=== PATIENT | female | born 1950 | race Caucasian/White ===

== ENCOUNTER → 2016-08-07 | Outpatient (CLI) | payer BC ==
[~2016-08-07] MED LIST: CLX20 PO; MULT-506 PO; PRAV20TA PO; b complex PO
[2016-08-07 13:13] LABS: ALKALINE PHOSPHATASE 51 U/L (45-117); ALT/SGPT 37 U/L (12-78); AST/SGOT 22 U/L (15-37); BLOOD UREA NITROGEN 19 mg/dl (7-18); BUN/CREATININE RATIO 25.8 (10-20); CALCIUM 8.5 mg/dl (8.5-10.1); CARBON DIOXIDE 26 mmol/L (21-32); CHLORIDE 99 mmol/L (98-107); CREATININE 0.75 mg/dl (0.60-1.20); GLUCOSE 87 mg/dl (70-99); HDL CHOLESTEROL 54 mg/dl; POTASSIUM 3.4 mmol/L (3.5-5.1); SODIUM 135 mmol/L (136-145)
[2016-08-07 13:24] LABS: ALB/GLOB RATIO 1.4 (0.9-2); CHOLESTEROL 137 mg/dl (0-200); CHOLESTEROL/HDL RATIO 2.5; LDL CHOLESTEROL CALCULATED 47 mg/dl; TRIGLYCERIDES 179 mg/dl (0-150); VERY LOW DENSITY LIPOPROT CALC 36 mg/dl
== END | disposition home or self-care (01) ==
LOC: C.LABPVFM 10:10
PROVIDERS: ATTEND Family Medicine
DX: E78.5 Hyperlipidemia, unspecified (principal); M81.0 Age-related osteoporosis without current pathological fracture; E87.6 Hypokalemia; F32.9 Major depressive disorder, single episode, unspecified

== ENCOUNTER → 2016-08-11 | Outpatient (CLI) | payer BC ==
--- NOTE | 2016-08-11 10:07 | DIAGNOSTIC IMAGING REPORT ---
RIGHT WRIST 4 VIEWS CLINICAL HISTORY: Right wrist pain. Fall in March. FINDINGS: 4 views of the right wrist are obtained. No prior studies are available for comparison at the time of dictation. The skeletal structures are osteopenic. There is a a thick band of sclerosis consistent with a healing impacted fracture of the distal radial metaphysis with evidence of intra-articular extension. No acute fracture is seen. Degenerative narrowing is noted at the radiocarpal articulation. Mild overlying soft tissue edema is observed. IMPRESSION: 1. There is a thick band of sclerosis consistent with a healing impacted fracture of the distal radial metaphysis with evidence of intraarticular extension. 2. Soft tissue edema is present around the wrist. No acute fracture is identified. Electronically signed by: Gerardo Hager M.D. 08/11/2016 10:05 AM Dictated Date/Time: 08/11/2016 10:03 AM
== END | disposition home or self-care (01) ==
LOC: C.RADPV 09:42
PROVIDERS: ATTEND Family Medicine
DX: M25.531 Pain in right wrist (principal); R93.7 Abnormal findings on diagnostic imaging of other parts of musculoskeletal system; M79.89 Other specified soft tissue disorders

== ENCOUNTER → 2017-02-19 | Outpatient (CLI) | payer BC ==
[2017-02-19 12:34] LABS: BLOOD UREA NITROGEN 19 mg/dl (7-18); BUN/CREATININE RATIO 27.9 (10-20); CALCIUM 8.7 mg/dl (8.5-10.1); CARBON DIOXIDE 30 mmol/L (21-32); CHLORIDE 97 mmol/L (98-107); CREATININE 0.68 mg/dl (0.60-1.20); GLUCOSE 88 mg/dl (70-99); POTASSIUM 3.3 mmol/L (3.5-5.1); SODIUM 134 mmol/L (136-145)
[2017-02-19 12:42] LABS: ALB/GLOB RATIO 1.2 (0.9-2); ALKALINE PHOSPHATASE 40 U/L (45-117); ALT/SGPT 33 U/L (12-78); AST/SGOT 17 U/L (15-37); CHOLESTEROL 119 mg/dl (0-200); CHOLESTEROL/HDL RATIO 2.8; HDL CHOLESTEROL 43 mg/dl; LDL CHOLESTEROL CALCULATED 40 mg/dl; TRIGLYCERIDES 180 mg/dl (0-150); VERY LOW DENSITY LIPOPROT CALC 36 mg/dl
== END | disposition home or self-care (01) ==
LOC: C.LABPVFM 09:29
PROVIDERS: ATTEND Family Medicine
DX: E78.5 Hyperlipidemia, unspecified (principal); M81.0 Age-related osteoporosis without current pathological fracture; E87.6 Hypokalemia; F32.9 Major depressive disorder, single episode, unspecified

== ENCOUNTER → 2017-08-14 | Outpatient (CLI) | payer OTHER ==
--- NOTE | 2017-08-15 15:39 | MAMMOGRAPHY REPORT ---
BILATERAL DIGITAL SCREENING MAMMOGRAM TOMOSYNTHESIS WITH CAD: 08/14/2017 CLINICAL HISTORY: Routine screening. Patient has no complaints. TECHNIQUE: Breast tomosynthesis in addition to standard 2D mammography was performed. Current study was also evaluated with a Computer Aided Detection (CAD) system. COMPARISON: Comparison is made to exams dated: 03/15/2015 mammogram, 02/10/2015 mammogram, 10/28/2010 ma mmogram - [facility], 01/07/2009, 01/28/2008, and 01/28/2008. BREAST COMPOSITION: The tissue of both breasts is extremely dense, which lowers the sensitivity of m ammography. FINDINGS: There are benign rim calcifications scattered in the breasts. No suspicious mass, architec tural distortion or cluster of microcalcifications is seen. IMPRESSION: ACR BI-RADS CATEGORY 1: NEGATIVE There is no mammographic evidence of malignancy. A 1 year screening mammogram is recommended. The pa tient will receive written notification of the results. Approximately 10% of breast cancers are not detected with mammography. A negative mammographic report should not delay biopsy if a clinically suggestive mass is present. Kendal Herring M.D. ay/:08/14/2017 16:12:40 Wheel Alignment Technician: Jessica CASTELLANO(Isabel)(José), [facility] letter sent: Normal 1/2 BI-RADS Code: ACR BI-RADS Category 1: Negative
== END | disposition home or self-care (01) ==
LOC: C.MAMM 08:08
PROVIDERS: ATTEND Family Medicine
DX: Z12.31 Encounter for screening mammogram for malignant neoplasm of breast (principal)

== ENCOUNTER → 2017-08-28 | Outpatient (CLI) | payer BC ==
[2017-08-28 12:30] LABS: ALBUMIN 3.5 gm/dl (3.4-5.0); ALT/SGPT 38 U/L (12-78); AST/SGOT 18 U/L (15-37); BLOOD UREA NITROGEN 21 mg/dl (7-18); CALCIUM 8.6 mg/dl (8.5-10.1); CARBON DIOXIDE 25 mmol/L (21-32); CREATININE 0.62 mg/dl (0.60-1.20); GLUCOSE 83 mg/dl (70-99); POTASSIUM 2.9 mmol/L (3.5-5.1); SODIUM 133 mmol/L (136-145)
[2017-08-28 12:42] LABS: ALKALINE PHOSPHATASE 62 U/L (45-117); TOTAL PROTEIN 6.9 gm/dl (6.4-8.2)
== END | disposition home or self-care (01) ==
LOC: C.LAB1850 10:08
PROVIDERS: ATTEND Family Medicine
DX: E78.5 Hyperlipidemia, unspecified (principal); E87.6 Hypokalemia; F50.00 Anorexia nervosa, unspecified; F32.9 Major depressive disorder, single episode, unspecified

== ENCOUNTER → 2017-10-10 | Outpatient (CLI) | payer BC | END | disposition home or self-care (01) | LOC: C.LAB1850 12:01 | PROVIDERS: ATTEND Family Medicine | DX: E87.6 Hypokalemia (principal) ==

== ENCOUNTER → 2018-03-11 | Outpatient (CLI) | payer BC ==
[2018-03-11 10:36] LABS: BASO % 0.6 %; BASO ABS # 0.05 K/uL (0-0.2); EOS % 1.7 %; EOS ABS # 0.15 K/uL (0-0.5); HEMATOCRIT 45.2 % (37-47); HEMOGLOBIN 14.4 g/dL (12.0-16.0); IG# 0.05 K/uL (0.00-0.02); LYMPH % 26.8 %; LYMPH ABS # 2.39 K/uL (1.2-3.4); MEAN CELL VOLUME 83.5 fL (80-100); MEAN CORPUSCULAR HEMOGLOBIN 26.6 pg (25-34); MEAN CORPUSCULAR HGB CONC 31.9 g/dl (32-36); MEAN PLATELET VOLUME 10.2 fL (7.4-10.4); MONO % 12.9 %; MONO ABS # 1.15 K/uL (0.11-0.59); NEUT % 57.4 %; NEUT ABS # 5.12 K/uL (1.4-6.5); PLATELET COUNT 382 K/uL (130-400); RED CELL DISTRIBUTION WIDTH CV 20.6 % (11.5-14.5); WHITE BLOOD COUNT 8.91 K/uL (4.8-10.8)
[2018-03-11 10:51] LABS: ALBUMIN 3.7 gm/dl (3.4-5.0); ALKALINE PHOSPHATASE 61 U/L (45-117); ALT/SGPT 43 U/L (12-78); AST/SGOT 20 U/L (15-37); BLOOD UREA NITROGEN 32 mg/dl (7-18); CARBON DIOXIDE 30 mmol/L (21-32); CHOLESTEROL 130 mg/dl (0-200); CREATININE 0.72 mg/dl (0.60-1.20); GLUCOSE 99 mg/dl (70-99); LDL CHOLESTEROL CALCULATED 44 mg/dl; POTASSIUM 2.8 mmol/L (3.5-5.1); SODIUM 131 mmol/L (136-145); TOTAL PROTEIN 7.2 gm/dl (6.4-8.2)
== END | disposition home or self-care (01) ==
LOC: C.LAB1850 09:23
PROVIDERS: ATTEND Family Medicine
DX: E78.5 Hyperlipidemia, unspecified (principal); M81.0 Age-related osteoporosis without current pathological fracture; F32.9 Major depressive disorder, single episode, unspecified; F50.00 Anorexia nervosa, unspecified

== ENCOUNTER 2022-12-21 14:02 | Observation (INO) ==
--- NOTE | 2022-12-21 14:27 | ED Triage Note ---
Date of Service December 21, 2022 History of Present Illness This patient was briefly evaluated while in triage. An abbreviated physical exam was performed. This patient is a 72-year-old Female who presents to the ED for evaluation of left arm weakness and numbness. Reports symptoms started 3 days ago. Denies v isual changes, slurred speech, confusion. She also notes being unable to void as well as diarrhea. Denies fever/chills, n/v, chest pain, SOB, abdominal pain. Physical Exam Constitutional: alert and oriented x3. no acute distress. HEENT: normocephalic, atraumatic. normal conjunctiva. Respiratory: lungs are clear to auscultation without wheezes, rhonchi, or rales bilaterally. equal chest rise. normal respiratory effort, no accessory muscle use. Cardiovascular: normal heart sounds without murmur. regular rate and rhythm. GI: abdomen is soft, nontender. MSK: moves all 4 extremities spontaneously Peripheral vascular: extremities warm and well perfused Neuro: Speech clear, tongue midline, without facial droop. Psych:appropriate mood and affect. Initial orders for labs and / or imaging were placed and patient was placed in the waiting area until a bed is available. Please see further documentation for the full ED course.
[2022-12-21 15:47] LABS: Basophils # (auto) 0.02 K/uL (0-0.2); Basophils % (auto) 0.2 %; Eosinophils # (auto) 0.04 K/uL (0-0.50); Eosinophils % (auto) 0.5 %; Hemoglobin 8.2 g/dl (12.0-16.0); Immature Granulocytes # (auto) 0.04 K/uL (0.01-0.20); Immature Granulocytes % (auto) 0.5 %; Lymphocytes # (auto) 1.14 K/uL (1.2-3.4); Lymphocytes % (auto) 13.2 %; Mean Corpuscular Hemoglobin 27.2 pg (25.0-34.0); Mean Corpuscular Hgb Conc 31.5 g/dL (32.0-36.0); Mean Corpuscular Volume 86.1 fL (80.0-100.0); Mean Platelet Volume 10.9 fL (9.4-12.4); Monocytes # (auto) 0.77 K/uL (0.11-0.59); Monocytes % (auto) 8.9 %; Neutrophils # (auto) 6.61 K/uL (1.40-6.50); Neutrophils % (auto) 76.7 %; Nucleated RBC # (auto) 0.03 K/uL (0-0.12); Nucleated RBC % (auto) 0.3 %; Platelet Count 406 K/uL (130-400); RDW Coefficient of Variation 29.3 % (11.5-14.5); RDW Standard Deviation 90.5 fL (36.4-46.3); Red Blood Count 3.02 M/uL (4.20-5.40); White Blood Count 8.62 K/ul (4.8-10.8)
--- NOTE | 2022-12-21 15:54 | CT Scan Report ---
CT SCAN OF THE BRAIN WITHOUT IV CONTRAST CLINICAL HISTORY: Right arm weakness. COMPARISON STUDY: CT of the brain dated 09/06/2011. TECHNIQUE: Unenhanced axial CT scan of the brain is performed from the vertex to the skull base. A do se lowering technique was utilized adhering to the principles of ALARA. CT DOSE: 547.75 mGy.cm FINDINGS: Brain parenchyma: There is age-related involutional change noting mild subcortical and periventricula r microangiopathic disease. There is no hemorrhage, mass effect, or evidence of acute territorial isc hemia by CT criteria. Lim-white matter differentiation is preserved. No extra-axial fluid collection is seen. Ventricles, sulci, cisterns: Prominent secondary to involutional change. Intracranial vasculature: There is mild atherosclerotic calcification of the cavernous carotid arteri es. Calvarium: Unremarkable. Sinuses and mastoids: There is opacification of the visualized right maxillary antrum. Trace fluid is seen in the sphenoid sinuses. There is near complete opacification of the right frontal sinus. The m astoid air cells are well pneumatized. Orbits: The bony orbits are grossly intact. IMPRESSION: There is no hemorrhage, mass effect, or evidence of acute territorial ischemia by CT jean marie sharma. ACT 112: Negative or not required by law. Electronically signed by: Gerardo Hager M.D. 12/21/2022 3:53 PM
[2022-12-21 15:56] LABS: Alanine Aminotransferase 16 U/L (7-52); Albumin Globulin Ratio 1.3 (0.9-2); Albumin Level 3.7 gm/dl (3.4-5.0); Alkaline Phosphatase 47 U/L (34-104); Anion Gap 10 (3-11); Aspartate Aminotransferase 25 U/L (13-39); BUN Creatinine Ratio 56.9 (10-20); Bilirubin,Total 0.2 mg/dl (0.2-1.0); Blood Urea Nitrogen 33 mg/dl (6-23); Carbon Dioxide 27 mmol/L (21-32); Chloride 95 mmol/L (98-107); Est GFR (African American) 108.2 ml/min; Est GFR (Non-African American) 93.4 ml/min; Globulin 2.9 gm/dl (2.5-4.0); Glucose 79 mg/dl (70-99(Fasting)); Potassium 2.7 mmol/L (3.5-5.1); Sodium 132 mmol/L (136-145); Total Protein 6.6 gm/dl (6.0-8.3)
[2022-12-21 16:01] LABS: Troponin I High Sensitivity 17.6 pg/ml (0-14)
--- NOTE | 2022-12-21 16:14 | Emergency Department Note ---
Impression & Plan Generalized weakness, Hypokalemia, Weakness of left upper extremity, Overflow diarrhea, Chronic malnutrition ED Provider Note NAME: NICOLE CHOWDARY AGE: 72 SEX: F : 1950 ARRIVES VIA: Walk-In INFORMANT: Patient, ED PROVIDER(S): Ricardo Ceja MD CHIEF COMPLAINT: Weakness MEDICAL DECISION MAKING: Patient presents due to concern for worsening weakness leg swelling decreased urine output as well as concern for left upper extremity weakness. IV was established and blood work was obtained. Patient did have a CT of the head performed along with Patient has a normal white count with anemia hemoglobin of 8 which is worse compared to prior in January of last year at that time it was 11. The patient's kidney function does show an elevated BUN to creatinine ratio. The patient does not complain of any bright red blood per r ectum or dark tarry stools. Patient's creatinine is normal. Sodium 132 with potassium of 2.7. Troponin is slightly elevated 17.6 but the patient denies any chest pains or shortness of breath and does complain of generalized weakness. Given the patient's multiple electrolyte abnormalities and the fact that the patient's significant malnutrition do believe the patient would benefit from inpatient treatment. The patient was also ordered a CT of the abdomen pelvis given the patient's decreased urine output. CT of the abdomen pelvis shows stool ball with rectal wall thickening. Prior /Outside records reviewed: I did review a primary care visit from Dr. Handy patient was seen for osteopor osis and hyperlipidemia at that time. Patient has a history of thrombocytopenia GERD scoliosis and osteoporosis Differential diagnosis: Infection, dehydration, metabolic abnormality, hypo/hyperglycemia, electrolyte disturbance, anemia, hypoxia, cardiac sources, intracerebral event, toxicologic, neurologic, as well as other pathologies. Diagnostics, as interpreted by me: ECG: Normal sinus rhythm, rate of 73, normal intervals normal axis no ST elevations, T wave versions anteriorly. Cardiac monitoring: An order was placed for continuous cardiac monitoring. The monitor shows a rate of 72 with sinus rhythm. Patient was placed on pulse oximetry Medical decision rules: none Imaging studies: See below I reviewed the patient's chest x-ray which shows no obvious pneumonia or pneumothorax. HPI: Patient presents due to concern for generalized weakness as well as associated leg swelling and decreased urine output. The patient states that she was able to pee a little bit this morning but not peed for what she thought was about 3 days . The patient states that she has had some progressively worsening weakness over the last several weeks and was concerned several days ago that she had decreased use of her left upper extremity. No prior history of stroke or mini stroke per patient. Patient denies any chest pains or shortness of breath. Patient has had decreased appetite. The patient has noticed that she has had some swelling in the bilateral lower extremities. Patient is also had associated diarrhea that has been constant every time that she seems to eat or drink anything it seems to "run right through me." Patient denies any known sick contacts or recent travel no recent antibiotic use and the patient denies any untreated stream or well water. PAST MEDICAL HISTORY: See Below PAST SURGICAL HISTORY: See Below SOCIAL HISTORY: See Below HOME MEDICATIONS: See Below ALLERGIES: See Below VITALS: See Below PHYSICAL EXAMINATION: GENERAL: NAD, wearing a mask, non-toxic. EYE EXAM: Normal conjunctiva. PERRL, no anisocoria and EOM's grossly intact w/o pain. NECK: Supple, no nuchal rigidity, no adenopathy, non-tender. No signs of meningismus. FROM of the neck with good chin to chest and neck extension. No stridor. LUNGS: Clear to auscultation. Normal chest wall mechanics. HEART: NSR, no MRG. ABDOMEN: Abdomen soft, non-tender, no masses, no rebound or guarding. BACK: No CVA TTP. SKIN: No rashes and no bruising. UPPER EXTREMITIES: Upper extremities are grossly normal. LOWER EXTREMITIES: Grossly normal, no edema. NEURO EXAM: A&O x3, cranial nerves II-XII grossly intact, normal speech, moves all 4 extremities. 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 Left forearm fracture Osteoporosis Sacroiliitis Scoliosis of thoracolumbar region due to degenerative disease of spine in adult Surgical History S/P cervical disc replacement Family History Mother Myocardial infarction Father COPD (chronic obstructive pulmonary disease) Other Heart disease Denies family history of Ovarian cancer Prostate cancer Kidney disease Breast cancer Colorectal cancer Social History Smoking Status: Current every day smoker Tobacco Type: Cigarettes Age Started Using Tobacco: 29; Age Quit Using Tobacco: 52; packs per day: 2; Second Hand Exposure: Yes (her ex- used to smoke around her ); Do You Dip or Chew Tobacco: No; Hx Alcohol Use: No Hx Substance Use: No Preferred Language: Taiwanese Communication Ability: Effective Visual Impairment: No Limitations Hearing Ability: Normal Rn Emergency Room Required: No Beliefs That Will Affect Care: None marital status: Current Living Situation: Alone current occupational status: retired current occupation: used to work as a cook for [employer] Other Information That Helps Us Care for You: No Feels Safe at Home: Yes Safety Concerns: Feels Safe At This Time Childhood Exposure to Second-Hand Smoke: Yes Diet: regular Dental Care, Regularly: Yes Physical Activity Frequency: 3-4 Times per Week Seatbelt Use: always Sunscreen Use: No Assistive Devices: None Allergies Allergies Allergy/AdvReac Type Severity Reaction Status Date / Time No Known Allergies Allergy Verified 12/21/22 18:08 Home Meds Home Medications Medication Instructions Recorded Confirmed dorzolamide 22.3 mg-timolol 6.8 1 drops ophthalmic (eye) BID 06/06/19 12/21/22 mg/mL eye drops latanoprost 0.005 % eye drops 1 drops ophthalmic (eye) QPM 06/06/19 12/21/22 food supplemt, lactose-reduced 3 ea PO TID 12/21/22 12/21/22 Previous Rx's Medication Instructions Recorded atorvastatin 20 mg tablet 20 mg PO DAILY #90 tabs 01/31/22 potassium bicarbonate-citric acid 25 meq PO BID #180 ea 03/20/22 25 mEq effervescent tablet (Effer-K) potassium, sodium phosphates 280 1 packet PO DAILY #100 ea 03/20/22 mg-160 mg-250 mg oral powder packet (Phos-NaK) omeprazole 20 mg capsule,delayed 20 mg PO DAILY #90 caps 05/22/22 release citalopram 40 mg tablet 40 mg PO DAILY #90 tabs 08/03/22 Results & Data (ED) Vital Signs Vital Signs - 24 hr 12/21/22 14:23 12/21/22 17:43 12/21/22 17:41 Temperature 36.6 C Temperature Source Temporal Artery Scan Pulse Rate 79 80 79 Pulse Rate from SpO2 Sensor 79 Respiratory Rate 16 15 Respiratory Depth Normal Blood Pressure 144/88 H Blood Pressure Mean 106 Pulse Oximetry 97 90 Oxygen Delivery Method Room Air Sepsis Recent Fever Within 48 Hours No Sepsis New/Unexplained Change in Mental Status No Sepsis Action Taken by Nursing No Action Required 12/21/22 17:50 12/21/22 18:00 12/21/22 18:00 Temperature Temperature Source Pulse Rate 78 76 Pulse Rate from SpO2 Sensor Respiratory Rate 19 18 Respiratory Depth Blood Pressure 98/63 L Blood Pressure Mean 66 Pulse Oximetry Oxygen Delivery Method Sepsis Recent Fever Within 48 Hours Sepsis New/Unexplained Change in Mental Status Sepsis Action Taken by Nursing 12/21/22 18:10 12/21/22 18:20 12/21/22 18:30 Temperature Temperature Source Pulse Rate 79 85 77 Pulse Rate from SpO2 Sensor Respiratory Rate 19 17 19 Respiratory Depth Blood Pressure Blood Pressure Mean Pulse Oximetry Oxygen Delivery Method Sepsis Recent Fever Within 48 Hours Sepsis New/Unexplained Change in Mental Status Sepsis Action Taken by Nursing 12/21/22 18:40 Temperature Temperature Source Pulse Rate 100 H Pulse Rate from SpO2 Sensor Respiratory Rate 25 H Respiratory Depth Blood Pressure Blood Pressure Mean Pulse Oximetry Oxygen Delivery Method Sepsis Recent Fever Within 48 Hours Sepsis New/Unexplained Change in Mental Status Sepsis Action Taken by Prison Medications Current Medication List: was personally reviewed by me Laboratory Data Attestation: I reviewed the patient's lab results. 12/21/22 15:00 12/21/22 15:00 Lab Results 12/21/22 12/21/22 12/21/22 Range/Units 15:00 15:00 15:00 WBC 8.62 (4.8-10.8) K/ul RBC 3.02 L (4.20-5.40) M/uL Hgb 8.2 L (12.0-16.0) g/dl Hct 26.0 L (37.0-47.0) % MCV 86.1 (80.0-100.0) fL MCH 27.2 (25.0-34.0) pg MCHC 31.5 L (32.0-36.0) g/dL RDW Std Deviation 90.5 H (36.4-46.3) fL RDW Coeff of Abdirahman 29.3 H (11.5-14.5) % Plt Count 406 H (130-400) K/uL MPV 10.9 (9.4-12.4) fL Immature Gran % (Auto) 0.5 % Neut % (Auto) 76.7 % Lymph % (Auto) 13.2 % Clinton % (Auto) 8.9 % Eos % (Auto) 0.5 % Baso % (Auto) 0.2 % Reticulocyte % (Auto) (0.5-2.0) % Neut # (Auto) 6.61 H (1.40-6.50) K/uL Lymph # (Auto) 1.14 L (1.2-3.4) K/uL Clinton # (Auto) 0.77 H (0.11-0.59) K/uL Eos # (Auto) 0.04 (0-0.50) K/uL Baso # (Auto) 0.02 (0-0.2) K/uL Reticulocyte # (0.02-0.10) 10^6/uL Immature Gran # (Auto) 0.04 (0.01-0.20) K/uL Absolute Nucleated RBC 0.03 (0-0.12) K/uL Nucleated RBC % (auto) 0.3 % Polychromasia 1+ Anisocytosis Present Stomatocytes 1+ Sodium 132 L (136-145) mmol/L Potassium 2.7 L (3.5-5.1) mmol/L Chloride 95 L (98-107) mmol/L Carbon Dioxide 27 (21-32) mmol/L Anion Gap 10 (3-11) BUN 33 H (6-23) mg/dl Creatinine 0.58 L (0.6-1.2) mg/dl Est Cr Clr Drug Dosing Not Reportable Est GFR ( Amer) 108.2 ml/min Est GFR (Non-Af Amer) 93.4 ml/min BUN/Creatinine Ratio 56.9 H (10-20) Glucose 79 (70-99(Fasting)) mg/dl Osmolality 279 L (280-300) mOsm/kg Calcium 9.0 (8.6-10.3) mg/dl Phosphorus (2.5-4.9) mg/dl Magnesium (1.7-2.4) mg/dl Iron (35-150) mcg/dl TIBC (250-450) mcg/dl Unsaturated IBC (155-355) mcg/dl Transferrin % Sat (15-50) % Ferritin (8-388) ng/ml Total Bilirubin 0.2 (0.2-1.0) mg/dl AST 25 (13-39) U/L ALT 16 (7-52) U/L Alkaline Phosphatase 47 (34-104) U/L Lactate Dehydrogenase (86-244) U/L Total Creatine Kinase (26-192) U/L Troponin I High Sens 17.6 H (0-14) pg/ml B-Natriuretic Peptide (0-100) pg/ml Total Protein 6.6 (6.0-8.3) gm/dl Albumin 3.7 (3.4-5.0) gm/dl Globulin 2.9 (2.5-4.0) gm/dl Albumin/Globulin Ratio 1.3 (0.9-2) Vitamin B12 (180-914) pg/ml Folate (>5.38) ng/ml TSH (0.300-4.500) uIu/ml SARS-CoV-2, RNA, NAAT (NEGATIVE) Blood Type Antibody Screen 12/21/22 12/21/22 12/21/22 Range/Units 15:00 15:00 15:00 WBC (4.8-10.8) K/ul RBC (4.20-5.40) M/uL Hgb (12.0-16.0) g/dl Hct (37.0-47.0) % MCV (80.0-100.0) fL MCH (25.0-34.0) pg MCHC (32.0-36.0) g/dL RDW Std Deviation (36.4-46.3) fL RDW Coeff of Abdirahman (11.5-14.5) % Plt Count (130-400) K/uL MPV (9.4-12.4) fL Immature Gran % (Auto) % Neut % (Auto) % Lymph % (Auto) % Clinton % (Auto) % Eos % (Auto) % Baso % (Auto) % Reticulocyte % (Auto) 7.5 H (0.5-2.0) % Neut # (Auto) (1.40-6.50) K/uL Lymph # (Auto) (1.2-3.4) K/uL Clinton # (Auto) (0.11-0.59) K/uL Eos # (Auto) (0-0.50) K/uL Baso # (Auto) (0-0.2) K/uL Reticulocyte # 0.23 H (0.02-0.10) 10^6/uL Immature Gran # (Auto) (0.01-0.20) K/uL Absolute Nucleated RBC (0-0.12) K/uL Nucleated RBC % (auto) % Polychromasia Anisocytosis Stomatocytes Sodium (136-145) mmol/L Potassium (3.5-5.1) mmol/L Chloride (98-107) mmol/L Carbon Dioxide (21-32) mmol/L Anion Gap (3-11) BUN (6-23) mg/dl Creatinine (0.6-1.2) mg/dl Est Cr Clr Drug Dosing Est GFR ( Amer) ml/min Est GFR (Non-Af Amer) ml/min BUN/Creatinine Ratio (10-20) Glucose (70-99(Fasting)) mg/dl Osmolality (280-300) mOsm/kg Calcium (8.6-10.3) mg/dl Phosphorus (2.5-4.9) mg/dl Magnesium (1.7-2.4) mg/dl Iron (35-150) mcg/dl TIBC (250-450) mcg/dl Unsaturated IBC (155-355) mcg/dl Transferrin % Sat (15-50) % Ferritin (8-388) ng/ml Total Bilirubin (0.2-1.0) mg/dl AST (13-39) U/L ALT (7-52) U/L Alkaline Phosphatase (34-104) U/L Lactate Dehydrogenase (86-244) U/L Total Creatine Kinase (26-192) U/L Troponin I High Sens (0-14) pg/ml B-Natriuretic Peptide (0-100) pg/ml Total Protein (6.0-8.3) gm/dl Albumin (3.4-5.0) gm/dl Globulin (2.5-4.0) gm/dl Albumin/Globulin Ratio (0.9-2) Vitamin B12 > 1500 H (180-914) pg/ml Folate > 22.30 (>5.38) ng/ml TSH 1.844 (0.300-4.500) uIu/ml SARS-CoV-2, RNA, NAAT (NEGATIVE) Blood Type Antibody Screen 12/21/22 12/21/22 12/21/22 Range/Units 16:38 17:20 17:22 WBC (4.8-10.8) K/ul RBC (4.20-5.40) M/uL Hgb (12.0-16.0) g/dl Hct (37.0-47.0) % MCV (80.0-100.0) fL MCH (25.0-34.0) pg MCHC (32.0-36.0) g/dL RDW Std Deviation (36.4-46.3) fL RDW Coeff of Abdirahman (11.5-14.5) % Plt Count (130-400) K/uL MPV (9.4-12.4) fL Immature Gran % (Auto) % Neut % (Auto) % Lymph % (Auto) % Clinton % (Auto) % Eos % (Auto) % Baso % (Auto) % Reticulocyte % (Auto) (0.5-2.0) % Neut # (Auto) (1.40-6.50) K/uL Lymph # (Auto) (1.2-3.4) K/uL Clinton # (Auto) (0.11-0.59) K/uL Eos # (Auto) (0-0.50) K/uL Baso # (Auto) (0-0.2) K/uL Reticulocyte # (0.02-0.10) 10^6/uL Immature Gran # (Auto) (0.01-0.20) K/uL Absolute Nucleated RBC (0-0.12) K/uL Nucleated RBC % (auto) % Polychromasia Anisocytosis Stomatocytes Sodium (136-145) mmol/L Potassium (3.5-5.1) mmol/L Chloride (98-107) mmol/L Carbon Dioxide (21-32) mmol/L Anion Gap (3-11) BUN (6-23) mg/dl Creatinine (0.6-1.2) mg/dl Est Cr Clr Drug Dosing Est GFR ( Amer) ml/min Est GFR (Non-Af Amer) ml/min BUN/Creatinine Ratio (10-20) Glucose (70-99(Fasting)) mg/dl Osmolality (280-300) mOsm/kg Calcium (8.6-10.3) mg/dl Phosphorus 3.1 (2.5-4.9) mg/dl Magnesium 1.9 (1.7-2.4) mg/dl Iron 18 L (35-150) mcg/dl TIBC 375 (250-450) mcg/dl Unsaturated IBC 357 H (155-355) mcg/dl Transferrin % Sat 5 L (15-50) % Ferritin 9.6 (8-388) ng/ml Total Bilirubin (0.2-1.0) mg/dl AST (13-39) U/L ALT (7-52) U/L Alkaline Phosphatase (34-104) U/L Lactate Dehydrogenase (86-244) U/L Total Creatine Kinase 114 (26-192) U/L Troponin I High Sens (0-14) pg/ml B-Natriuretic Peptide 323 H (0-100) pg/ml Total Protein (6.0-8.3) gm/dl Albumin (3.4-5.0) gm/dl Globulin (2.5-4.0) gm/dl Albumin/Globulin Ratio (0.9-2) Vitamin B12 (180-914) pg/ml Folate (>5.38) ng/ml TSH (0.300-4.500) uIu/ml SARS-CoV-2, RNA, NAAT NEGATIVE (NEGATIVE) Blood Type Antibody Screen 12/21/22 12/21/22 Range/Units 17:22 18:01 WBC (4.8-10.8) K/ul RBC (4.20-5.40) M/uL Hgb (12.0-16.0) g/dl Hct (37.0-47.0) % MCV (80.0-100.0) fL MCH (25.0-34.0) pg MCHC (32.0-36.0) g/dL RDW Std Deviation (36.4-46.3) fL RDW Coeff of Abdirahman (11.5-14.5) % Plt Count (130-400) K/uL MPV (9.4-12.4) fL Immature Gran % (Auto) % Neut % (Auto) % Lymph % (Auto) % Clinton % (Auto) % Eos % (Auto) % Baso % (Auto) % Reticulocyte % (Auto) (0.5-2.0) % Neut # (Auto) (1.40-6.50) K/uL Lymph # (Auto) (1.2-3.4) K/uL Clinton # (Auto) (0.11-0.59) K/uL Eos # (Auto) (0-0.50) K/uL Baso # (Auto) (0-0.2) K/uL Reticulocyte # (0.02-0.10) 10^6/uL Immature Gran # (Auto) (0.01-0.20) K/uL Absolute Nucleated RBC (0-0.12) K/uL Nucleated RBC % (auto) % Polychromasia Anisocytosis Stomatocytes Sodium (136-145) mmol/L Potassium (3.5-5.1) mmol/L Chloride (98-107) mmol/L Carbon Dioxide (21-32) mmol/L Anion Gap (3-11) BUN (6-23) mg/dl Creatinine (0.6-1.2) mg/dl Est Cr Clr Drug Dosing Est GFR ( Amer) ml/min Est GFR (Non-Af Amer) ml/min BUN/Creatinine Ratio (10-20) Glucose (70-99(Fasting)) mg/dl Osmolality (280-300) mOsm/kg Calcium (8.6-10.3) mg/dl Phosphorus (2.5-4.9) mg/dl Magnesium (1.7-2.4) mg/dl Iron (35-150) mcg/dl TIBC (250-450) mcg/dl Unsaturated IBC (155-355) mcg/dl Transferrin % Sat (15-50) % Ferritin (8-388) ng/ml Total Bilirubin (0.2-1.0) mg/dl AST (13-39) U/L ALT (7-52) U/L Alkaline Phosphatase (34-104) U/L Lactate Dehydrogenase 193 (86-244) U/L Total Creatine Kinase (26-192) U/L Troponin I High Sens (0-14) pg/ml B-Natriuretic Peptide (0-100) pg/ml Total Protein (6.0-8.3) gm/dl Albumin (3.4-5.0) gm/dl Globulin (2.5-4.0) gm/dl Albumin/Globulin Ratio (0.9-2) Vitamin B12 (180-914) pg/ml Folate (>5.38) ng/ml TSH (0.300-4.500) uIu/ml SARS-CoV-2, RNA, NAAT (NEGATIVE) Blood Type AB Positive Antibody Screen NEGATIVE Administered Medications Dorzolamide/Timolol (Dorzolamide/Timolol 22.3/6.8mg/Ml 10 Ml Btl) 1 drops OP BID [facility] Stop: 01/20/23 21:33 Last Admin: 12/21/22 23:45 Dose: 1 drops Documented By: KARL Potassium Chloride 40 meq/ (Dextrose/Sodium Chloride) 1,020 mls @ 80 mls/hr IV .[id number] [facility] Stop: 12/22/22 23:29 Last Admin: 12/21/22 23:44 Dose: 80 mls/hr Documented By: KARL Ceftriaxone Sodium 1,000 mg/ (Dextrose) 50 mls @ 100 mls/hr IV Q24H [facility]; Protocol Stop: 12/26/22 21:59 Last Admin: 12/21/22 23:44 Dose: 100 mls/hr Documented By: KARL Pantoprazole Sodium 40 mg/ (Syringe) 10 mls @ 5 mls/min IV BID [facility] Stop: 01/20/23 23:14 Last Admin: 12/21/22 23:45 Dose: 5 mls/min Documented By: KARL Latanoprost (Latanoprost 0.005% Op Soln 2.5 Ml Btl) 1 drops OP QPM NETTE Stop: 01/20/23 21:33 Last Admin: 12/21/22 23:45 Dose: 1 drops Documented By: KARL Oxycodone HCl (Oxycodone Hcl Ir 5 Mg Tab (Immediate Release)) 5 mg PO Q4H PRN PRN Reason: Pain Stop: 01/04/23 22:21 Last Admin: 12/21/22 23:51 Dose: 5 mg Documented By: KARL Polyethylene Glycol (Polyethylene (Miralax) 17 Gm Pack) 17 gm PO TID NETTE Stop: 01/20/23 21:33 Last Admin: 12/21/22 23:46 Dose: 17 gm Documented By: KARL Discontinued Medications Hydromorphone HCl (Hydromorphone Inj 0.5 Mg/0.5 Ml Syr) 0.25 mg IV NOW STA Stop: 12/21/22 21:48 Last Admin: 12/21/22 22:10 Dose: 0.25 mg Documented By: POWER Potassium Chloride (K Tobin / Wtr) 10 meq in 100 mls @ 100 mls/hr IV Q1H NETTE Stop: 12/21/22 19:29 Last Infusion: 12/21/22 19:47 Dose: 0 mls/hr Documented By: CarmelinaT Admin: 12/21/22 18:47 Dose: 100 mls/hr Documented By: Infusion: 12/21/22 18:47 Dose: 0 mls/hr Documented By: Admin: 12/21/22 17:42 Dose: 100 mls/hr Documented By: TOBIN Ioversol (Optiray 320 100ml) 87 ml IV ONCE ONE Stop: 12/21/22 17:00 Last Admin: 12/21/22 16:59 Dose: 87 ml Documented By: MARTINA Ioversol (Optiray 320 500ml) 103 ml IV ONCE ONE Stop: 12/21/22 19:27 Last Admin: 12/21/22 19:27 Dose: 103 ml Documented By: TERRELL Mineral Oil (Mineral Oil Enema 133 Ml Btl) 133 ml VT ONE ONE Stop: 12/21/22 21:35 Last Admin: 12/21/22 23:44 Dose: 133 ml Documented By: KARL Pantoprazole Sodium (Pantoprazole 40 Mg Tab) 40 mg PO DAILY NETTE Stop: 01/20/23 21:33 Last Admin: 12/21/22 23:37 Dose: Not Given Documented By: ALFIE Imaging Data Radiologist's Impression: Chest X-Ray 12/21/22 14:28 XR chest 1V portable CLINICAL HISTORY: weakness TECHNIQUE: Single frontal radiograph of the chest was obtained. Comparison: Comparison is made to chest radiograph 11/23/2010 FINDINGS: No lines and tubes are seen. Calcified aortic knob is seen. Reticular interstitial opacities are seen. No evidence of pleural effusion or pneumothorax. IMPRESSION: No acute chest disease. ACT 112: Negative or not required by law. Electronically signed by: Yazan Wilkinson M.D. 12/21/2022 4:[address] 12/21/22 14:30 CT SCAN OF THE BRAIN WITHOUT IV CONTRAST CLINICAL HISTORY: Right arm weakness. COMPARISON STUDY: CT of the brain dated 09/06/2011. TECHNIQUE: Unenhanced axial CT scan of the brain is performed from the vertex to the skull base. A dose lowering technique was utilized adhering to the principles of ALARA. CT DOSE: 547.75 mGy.cm FINDINGS: Brain parenchyma: There is age-related involutional change noting mild subcor tical and periventricular microangiopathic disease. There is no hemorrhage, mass effect, or evidence of acute territorial ischemia by CT criteria. Lim-white matter differentiation is preserved. No extra-axial fluid collection is seen. Ventricles, sulci, cisterns: Prominent secondary to involutional change. Intracranial vasculature: There is mild atherosclerotic calcification of the cavernous carotid arteries. Calvarium: Unremarkable. Sinuses and mastoids: There is opacification of the visualized right maxillary antrum. Trace fluid is seen in the sphenoid sinuses. There is near complete op acification of the right frontal sinus. The mastoid air cells are well pneumatized. Orbits: The bony orbits are grossly intact. IMPRESSION: There is no hemorrhage, mass effect, or evidence of acute territorial ischemia by CT criteria. ACT 112: Negative or not required by law. Electronically signed by: Gerardo Hager M.D. 12/21/2022 3:53 PM Abdomen/Pelvis CT 12/21/22 16:32 CT abd pelvis IV con only CLINICAL HISTORY: abdominal swelling, decreased UOP TECHNIQUE: Helical axial images of the abdomen and pelvis were obtained and displayed. Automated dose lowering techniques and/or adjustment according to patient size were utilized for this exam. This exam was performed with intravenous contrast. CT DOSE: 290.84 mGy.cm COMPARISON: Comparison is made to CT abdomen pelvis 04/27/2009 FINDINGS: Lower chest: Bibasilar atelectasis versus scarring is seen. Bronchial wall thickening is seen with diffuse emphysema. Groundglass opacities in the bilateral lower lobes are nonspecific. Liver: Unremarkable. No focal lesions are seen. Gallbladder and biliary tree: No calcified gallstones. Normal caliber wall. No intra- or extrahepatic biliary ductal dilation. Pancreas: Unremarkable, no focal lesions. Spleen: Unremarkable. Adrenals: Unremarkable. Kidneys and ureters: Subcentimeter hypodensities are too small to characterize. Bladder: Distention of the bladder is seen. Reproductive organs: Patient is status post hysterectomy. Bowel: There is a large stool ball in rectum with thickening of the wall. Moderate stool burden is seen. Nondilated loops of small bowel seen. Lymph nodes Retroperitoneal: Unremarkable. Pelvic: Unremarkable. Mesenteric: Unremarkable. Peritoneum: There is a paucity of mesenteric fat limiting evaluation. Vessels: Atherosclerotic calcifications are seen. Abdominal wall: Unremarkable. Bones: Degenerative changes are seen along with levoscoliosis. IMPRESSION: There is prominent stool ball with rectal wall thickening compatible cerebral colitis. A paucity of mesenteric fat limits evaluation, however no other acute abnormalities are seen. ACT 112: Negative or not required by law. Electronically signed by: Yazan Wilkinson M.D. 12/21/2022 5:24 PM Head CTA 12/21/22 18:40 Exam(s): CTA HEAD With Contrast IV Amt: 103 ml optiray 320 EXAM: CT Angiography Head With Intravenous Contrast CLINICAL HISTORY: Reason for exam: left upper extremity weakness. TECHNIQUE: Axial computed tomographic angiography images of the head with intravenous contrast. Automated exposure control was utilized for the study. A dose lowering technique was utilized adhering to the principles of ALARA. MIP reconstructed images were created and reviewed. CONTRAST: Patient received 103 ml optiray 320 of IV contrast COMPARISON: No relevant prior studies available. FINDINGS: Right internal carotid artery: No acute findings. Intracranial segment is patent with no significant stenosis. No aneurysm. Right anterior cerebral artery: Unremarkable. No occlusion or significant stenosis. No aneurysm. Right middle cerebral artery: Unremarkable. No occlusion or significant stenosis. No aneurysm. Right posterior cerebral artery: Unremarkable. No occlusion or significant stenosis. No aneurysm. Left internal carotid artery: No acute findings. Intracranial segment is patent with no significant stenosis. No aneurysm. Left anterior cerebral artery: Unremarkable. No occlusion or significant stenosis. No aneurysm. Left middle cerebral artery: Unremarkable. No occlusion or significant stenosis. No aneurysm. Left posterior cerebral artery: Unremarkable. No occlusion or significant stenosis. No aneurysm. Atherosclerotic changes of the cavernous carotid arteries. IMPRESSION: No large vessel occlusion. Electronically signed by: Leland Queen MD 12/21/22 19:57 PM Neck CTA 12/21/22 18:40 Exam(s): CTA NECK With Contrast IV Amt: 103 ml optiray 320 EXAM: CT Angiography Neck With Intravenous Contrast CLINICAL HISTORY: Reason for exam: left upper extremity weakness. TECHNIQUE: Routine carotid CT angiography protocol was performed with intravenous contrast. NASCET criteria using the distal ICAs for comparison were used for evaluation of stenoses. Automated exposure control was utilized for the study. A dose lowering technique was utilized adhering to the principles of ALARA. MIP reconstructed images were created and reviewed. CONTRAST: Patient received 103 ml optiray 320 of IV contrast COMPARISON: None. FINDINGS: Limitations: Evaluation is limited due to motion artifact. VASCULATURE: Right common carotid artery: Unremarkable. No occlusion or significant stenosis. No dissection. Right internal carotid artery: Unremarkable. Extracranial segment is patent with no occlusion or significant stenosis. No dissection. Right external carotid artery: Unremarkable. No occlusion. Right vertebral artery: PICA termination of the RIGHT vertebral artery. No occlusion or significant stenosis. No dissection. Left common carotid artery: Unremarkable. No occlusion or significant stenosis. No dissection. Left internal carotid artery: Unremarkable. Extracranial segment is patent with no occlusion or significant stenosis. No dissection. Left external carotid artery: Unremarkable. No occlusion. Left vertebral artery: Unremarkable. No occlusion or significant stenosis. No dissection. NECK: Bones/joints: Multilevel cervical spondylosis and degenerative disc disease. ACDF. IMPRESSION: No large vessel occlusion. PICA termination of the RIGHT vertebral artery. Electronically signed by: Leland Queen MD 12/21/22 19:58 PM Discharge Plan Visit Data Chief Complaint: Unable to Void Stated Complaint: HASNT PEED IN 3 DAYS, SWELLING IN LEGS ED Provider: Ricardo Ceja Discharge Problem: Generalized weakness, Hypokalemia, Weakness of left upper extremity, Overflow diarrhea, Chronic malnutrition Patient Disposition: Admitted As Inpatient Discharge Instructions Interventions: ED Discharge Assessment Last Done: 12/21/22 20:25
[2022-12-21 16:15] LABS: Anisocytosis Present; Polychromasia 1+; Stomatocytes 1+
[2022-12-21] MEDS ORDERED: OPTIRAY 320 100ml IV ONE (16:59)
--- NOTE | 2022-12-21 16:59 | XRay Report ---
XR chest 1V portable CLINICAL HISTORY: weakness TECHNIQUE: Single frontal radiograph of the chest was obtained. Comparison: Comparison is made to chest radiograph 11/23/2010 FINDINGS: No lines and tubes are seen. Calcified aortic knob is seen. Reticular interstitial opacities are seen . No evidence of pleural effusion or pneumothorax. IMPRESSION: No acute chest disease. ACT 112: Negative or not required by law. Electronically signed by: Yazan Wilkinson M.D. 12/21/2022 4:57 PM
--- NOTE | 2022-12-21 17:27 | CT Scan Report ---
CT abd pelvis IV con only CLINICAL HISTORY: abdominal swelling, decreased UOP TECHNIQUE: Helical axial images of the abdomen and pelvis were obtained and displayed. Automated dose lowering techniques and/or adjustment according to patient size were utilized for this exam. This e xam was performed with intravenous contrast. CT DOSE: 290.84 mGy.cm COMPARISON: Comparison is made to CT abdomen pelvis 04/27/2009 FINDINGS: Lower chest: Bibasilar atelectasis versus scarring is seen. Bronchial wall thickening is seen with d iffuse emphysema. Groundglass opacities in the bilateral lower lobes are nonspecific. Liver: Unremarkable. No focal lesions are seen. Gallbladder and biliary tree: No calcified gallstones. Normal caliber wall. No intra- or extrahepatic biliary ductal dilation. Pancreas: Unremarkable, no focal lesions. Spleen: Unremarkable. Adrenals: Unremarkable. Kidneys and ureters: Subcentimeter hypodensities are too small to characterize. Bladder: Distention of the bladder is seen. Reproductive organs: Patient is status post hysterectomy. Bowel: There is a large stool ball in rectum with thickening of the wall. Moderate stool burden is se en. Nondilated loops of small bowel seen. Lymph nodes Retroperitoneal: Unremarkable. Pelvic: Unremarkable. Mesenteric: Unremarkable. Peritoneum: There is a paucity of mesenteric fat limiting evaluation. Vessels: Atherosclerotic calcifications are seen. Abdominal wall: Unremarkable. Bones: Degenerative changes are seen along with levoscoliosis. IMPRESSION: There is prominent stool ball with rectal wall thickening compatible cerebral colitis. A paucity of m esenteric fat limits evaluation, however no other acute abnormalities are seen. ACT 112: Negative or not required by law. Electronically signed by: Yazan Wilkinson M.D. 12/21/2022 5:24 PM
--- NOTE | 2022-12-21 17:32 | Electrocardiogram Report ---
Test Reason : Blood Pressure : / mmHG Vent. Rate : 073 BPM Atrial Rate : 073 BPM P-R Int : 130 ms QRS Dur : 086 ms QT Int : 408 ms P-R-T Axes : 094 065 014 degrees QTc Int : 449 ms Normal sinus rhythm Nonspecific T wave abnormality Anterior leads Abnormal ECG When compared with ECG of 25-JAN-2022 12:00, Nonspecific T wave abnormality has replaced inverted T waves in Anterior leads Confirmed by Bobby Stafford ([id number]) on 12/21/2022 5:32:15 PM Referred By: REFERRED SELF Confirmed By:Bobby Stafford
[2022-12-21] MEDS: POTASSIUM CHLORIDE / WTR 10 MEQ/100 ML PLCT IV SCH ×2 (17:42→18:47)
[2022-12-21 18:02] LABS: Reticulocyte % 7.5 % (0.5-2.0); Reticulocytes # 0.23 10^6/uL (0.02-0.10)
[2022-12-21 18:08] LABS: Magnesium 1.9 mg/dl (1.7-2.4)
[2022-12-21 18:14] LABS: Phosphorus 3.1 mg/dl (2.5-4.9)
--- NOTE | 2022-12-21 18:26 | History & Physical Report ---
Date of Service December 21, 2022 Assessment & Plan (1) Stroke-like symptoms: Plan: New onset left upper extremity weakness Suspect from exam this is more likely a rotator cuff injury although also not completely typical of this Will complete stroke workup with CT angio head/neck, brain MRI, TTE - if brain MRI positive (2) Weakness of left upper extremity: Plan: ?rotator cuff injury vs. cervical neuropathy vs. stroke Left shoulder XR MRI cervical spine (3) Overflow diarrhea: Plan: Mineral Oil enema, MiraLAX 17g PO TID Consider manual disimpaction if no large BM by tomorrow Likely contributing towards her poor appetite (4) UTI (urinary tract infection): Plan: UA concerning for infection after patient was seen. Only urine symptom noted during history was reduced urination. Will start ceftiaxone 1g IV Follow up urine cultures (5) Normocytic anemia: Plan: New since 2021 although unclear how acute Retic count, iron studies, B12, folate and LDH added to investigate further (6) Hypokalemia: Plan: Chronically low - suspect nutritional and acutely worse from diarrhea KCl 10 meq IV x2, followed by 40 meq in each 1L of IV fluids (7) Acid reflux disease: Plan: Switch PPI to pantoprazole 40mg IV BID pending fecal occult blood and anemia workup Plan VTE Prophylaxis - chemical prophylaxis deferred due to anemia of unknown cause Diet - clear liquids Disposition - observation to med/surg with tele Admission and Anticipated Discharge Date Admission Date: December 21, 2022 History of Present Illness Chief Complaint: Left sided weakness, diarrhea Primary Care Provider: Lyn Handy MD Luz Smith is a 72 year old female who presents to the ER with 1 week of diarrhea, 3 days of left sided weakness and sensation on the left side with reduced urination and ankle swelling. She reports significant decline over months with weight loss. Diarrhea with associated nausea and loss of appetite. No watery stools, abdominal pain, melena or hematochezia. Not had a problem with constipation or diarrhea prior to this. No traumatic event 3 days ago. Sudden onset left upper extremity weakness, unable to lift up her arm. No other extremity weakness or change in sensation. No facial droop, change in speech, hearing or vision. She notes ongoing neck pain and reports prior surgery performed by Dr Correa over 10 years ago but cannot remember exactly what this was, however the central neck pain has been worse over the last 3 days in addition. Regarding the lower extremity swelling she denies any prior history of this. No history of heart failure. No shortness of breath, orthopnea, PND or chest pain. Regarding her anemia she denies any dizziness, shortness of breath or chest pain. She denies any hematemesis, hemoptysis, hematochezia or melena. Allergies Allergy/AdvReac Type Severity Reaction Status Date / Time No Known Allergies Allergy Verified 12/21/22 18:08 Home Medications Medication Instructions Recorded Confirmed Type dorzolamide 22.3 mg-timolol 6.8 1 drops ophthalmic (eye) BID 06/06/19 12/21/22 History mg/mL eye drops latanoprost 0.005 % eye drops 1 drops ophthalmic (eye) QPM 06/06/19 12/21/22 History atorvastatin 20 mg tablet 20 mg PO DAILY #90 tabs 01/31/22 12/21/22 Rx potassium bicarbonate-citric acid 25 meq PO BID #180 ea 03/20/22 12/21/22 Rx 25 mEq effervescent tablet (Effer-K) potassium, sodium phosphates 280 1 packet PO DAILY #100 ea 03/20/22 12/21/22 Rx mg-160 mg-250 mg oral powder packet (Phos-NaK) omeprazole 20 mg capsule,delayed 20 mg PO DAILY #90 caps 05/22/22 12/21/22 Rx release citalopram 40 mg tablet 40 mg PO DAILY #90 tabs 08/03/22 12/21/22 Rx food supplemt, lactose-reduced 3 ea PO TID 12/21/22 12/21/22 History 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 Left forearm fracture Osteoporosis Sacroiliitis Scoliosis of thoracolumbar region due to degenerative disease of spine in adult Surgical History S/P cervical disc replacement Family History Mother Myocardial infarction Father COPD (chronic obstructive pulmonary disease) Other Heart disease Denies family history of Ovarian cancer Prostate cancer Kidney disease Breast cancer Colorectal cancer Social History Smoking Status: Current every day smoker Tobacco Type: Cigarettes Age Started Using Tobacco: 29; Age Quit Using Tobacco: 52; packs per day: 2; Second Hand Exposure: Yes (her ex- used to smoke around her ); Do You Dip or Chew Tobacco: No; Hx Alcohol Use: No Hx Substance Use: No Preferred Language: Sinhala Communication Ability: Effective Visual Impairment: No Limitations Hearing Ability: Normal C Python Developer Required: No Beliefs That Will Affect Care: None marital status: Current Living Situation: Alone current occupational status: retired current occupation: used to work as a cook for [employer] Other Information That Helps Us Care for You: No Feels Safe at Home: Yes Safety Concerns: Feels Safe At This Time Childhood Exposure to Second-Hand Smoke: Yes Diet: regular Dental Care, Regularly: Yes Physical Activity Frequency: 3-4 Times per Week Seatbelt Use: always Sunscreen Use: No Assistive Devices: None Review of Systems Review of Systems: All systems reviewed & are unremarkable except as noted in HPI & below Physical Exam Constitutional: well developed and + cachectic; + not well nourished and no acute distress Eyes: PERRL, conjunctivae normal, anicteric sclerae ENMT: external ear and nose normal, oropharynx normal Neck: trachea midline, no thyromegaly central neck pain Respiratory: normal respiratory effort, lungs clear to auscultation Cardiovascular: Rate/Rhythm: regular rate and regular rhythm Heart Sounds: no murmur Extremities: + pedal edema (1+ pitting b/l lower extemity) Gastrointestinal (Abdomen): normal bowel sounds, soft, nontender, no hepatosplenomegaly Skin: no rashes, warm and dry Neurologic: moves all extremities, + focal motor deficit (see below) and awake; not confused Motor/Sensory: + pronator drift (unable to lift left arm); no tremor Cranial Nerves: PERRL, EOM intact bilaterally, normal facial strength, tongue midline, able to rotate head bilaterally, able to elevate shoulders bilaterally, no nystagmus and symmetric palate elevation Left shoulder abduction and flexion 2/5, elbow ext 3/5, elbow flex 4/5, body sander strength equal to right side No upper extremity change in sensation No lower extremity weakness or change in sensation Psychiatric: A+Ox3, euthymic affect Results & Data Results & Data Vital Signs (Past 12 Hours) Vital Signs Temp Pulse Resp BP Pulse Ox O2 Del Method 12/21/22 17:43 80 12/21/22 14:23 36.6 C 79 16 144/88 H 97 Room Air Laboratory Results Abnormal lab results 12/21/22 12/21/22 12/21/22 Range/Units 15:00 15:00 15:00 RBC 3.02 L (4.20-5.40) M/uL Hgb 8.2 L (12.0-16.0) g/dl Hct 26.0 L (37.0-47.0) % MCHC 31.5 L (32.0-36.0) g/dL RDW Std Deviation 90.5 H (36.4-46.3) fL RDW Coeff of Abdirahman 29.3 H (11.5-14.5) % Plt Count 406 H (130-400) K/uL Reticulocyte % (Auto) (0.5-2.0) % Neut # (Auto) 6.61 H (1.40-6.50) K/uL Lymph # (Auto) 1.14 L (1.2-3.4) K/uL Lander # (Auto) 0.77 H (0.11-0.59) K/uL Reticulocyte # (0.02-0.10) 10^6/uL Sodium 132 L (136-145) mmol/L Potassium 2.7 L (3.5-5.1) mmol/L Chloride 95 L (98-107) mmol/L BUN 33 H (6-23) mg/dl Creatinine 0.58 L (0.6-1.2) mg/dl BUN/Creatinine Ratio 56.9 H (10-20) Osmolality 279 L (280-300) mOsm/kg Iron (35-150) mcg/dl Unsaturated IBC (155-355) mcg/dl Transferrin % Sat (15-50) % Troponin I High Sens 17.6 H (0-14) pg/ml B-Natriuretic Peptide (0-100) pg/ml 12/21/22 12/21/22 12/21/22 Range/Units 15:00 17:20 17:22 RBC (4.20-5.40) M/uL Hgb (12.0-16.0) g/dl Hct (37.0-47.0) % MCHC (32.0-36.0) g/dL RDW Std Deviation (36.4-46.3) fL RDW Coeff of Abdirahman (11.5-14.5) % Plt Count (130-400) K/uL Reticulocyte % (Auto) 7.5 H (0.5-2.0) % Neut # (Auto) (1.40-6.50) K/uL Lymph # (Auto) (1.2-3.4) K/uL Lander # (Auto) (0.11-0.59) K/uL Reticulocyte # 0.23 H (0.02-0.10) 10^6/uL Sodium (136-145) mmol/L Potassium (3.5-5.1) mmol/L Chloride (98-107) mmol/L BUN (6-23) mg/dl Creatinine (0.6-1.2) mg/dl BUN/Creatinine Ratio (10-20) Osmolality (280-300) mOsm/kg Iron 18 L (35-150) mcg/dl Unsaturated IBC 357 H (155-355) mcg/dl Transferrin % Sat 5 L (15-50) % Troponin I High Sens (0-14) pg/ml B-Natriuretic Peptide 323 H (0-100) pg/ml Diagnostic Findings CT SCAN OF THE BRAIN WITHOUT IV CONTRAST CLINICAL HISTORY: Right arm weakness. COMPARISON STUDY: CT of the brain dated 09/06/2011. TECHNIQUE: Unenhanced axial CT scan of the brain is performed from the vertex to the skull base. A dose lowering technique was utilized adhering to the principles of ALARA. CT DOSE: 547.75 mGy.cm FINDINGS: Brain parenchyma: There is age-related involutional change noting mild subcortical and periventricular microangiopathic disease. There is no hemorrhage, mass effect, or evidence of acute territorial ischemia by CT criteria. Lim-white matter differentiation is preserved. No extra-axial fluid collection is seen. Ventricles, sulci, cisterns: Prominent secondary to involutional change. Intracranial vasculature: There is mild atherosclerotic calcification of the cavernous carotid arteries. Calvarium: Unremarkable. Sinuses and mastoids: There is opacification of the visualized right maxillary antrum. Trace fluid is seen in the sphenoid sinuses. There is near complete opacification of the right frontal sinus. The mastoid air cells are well pneumatized. Orbits: The bony orbits are grossly intact. IMPRESSION: There is no hemorrhage, mass effect, or evidence of acute territorial ischemia by CT criteria. XR chest 1V portable CLINICAL HISTORY: weakness TECHNIQUE: Single frontal radiograph of the chest was obtained. Comparison: Comparison is made to chest radiograph 11/23/2010 FINDINGS: No lines and tubes are seen. Calcified aortic knob is seen. Reticular interstitial opacities are seen. No evidence of pleural effusion or pneumothorax. IMPRESSION: No acute chest disease. CT abd pelvis IV con only CLINICAL HISTORY: abdominal swelling, decreased UOP TECHNIQUE: Helical axial images of the abdomen and pelvis were obtained and displayed. Automated dose lowering techniques and/or adjustment according to patient size were utilized for this exam. This exam was performed with intravenous contrast. CT DOSE: 290.84 mGy.cm COMPARISON: Comparison is made to CT abdomen pelvis 04/27/2009 FINDINGS: Lower chest: Bibasilar atelectasis versus scarring is seen. Bronchial wall thickening is seen with diffuse emphysema. Groundglass opacities in the bilateral lower lobes are nonspecific. Liver: Unremarkable. No focal lesions are seen. Gallbladder and biliary tree: No calcified gallstones. Normal caliber wall. No intra- or extrahepatic biliary ductal dilation. Pancreas: Unremarkable, no focal lesions. Spleen: Unremarkable. Adrenals: Unremarkable. Kidneys and ureters: Subcentimeter hypodensities are too small to characterize. Bladder: Distention of the bladder is seen. Reproductive organs: Patient is status post hysterectomy. Bowel: There is a large stool ball in rectum with thickening of the wall. Moderate stool burden is seen. Nondilated loops of small bowel seen. Lymph nodes Retroperitoneal: Unremarkable. Pelvic: Unremarkable. Mesenteric: Unremarkable. Peritoneum: There is a paucity of mesenteric fat limiting evaluation. Vessels: Atherosclerotic calcifications are seen. Abdominal wall: Unremarkable. Bones: Degenerative changes are seen along with levoscoliosis. IMPRESSION: There is prominent stool ball with rectal wall thickening compatible cerebral colitis. A paucity of mesenteric fat limits evaluation, however no other acute abnormalities are seen. Medications Administered ER Medications Given: None ECG Rate (beats per minute): 73 Rhythm: normal sinus Findings: + other (non-specific T wave abnormality in anterior leads) Comparison ECG Date: from (January 25, 2022) Change: the following changes noted (Non-specific T wave abnormality replaced inverted T waves anteriorly) Code Status & VTE Plan Code Status DNR/DNI as discussed with the patient VTE Prophylaxis Plan VTE Prophylaxis will be ordered: No PG Care Time/CCT Total # of Minutes Spent Total Time Spent with Patient: Total time spent is greater than 50% in coordination of care (as documented) at patient's floor/unit and/or counseling patient: Coding Level of Care Code 94691 INT INP/OBS CARE 3/75MIN Diagnoses Stroke-like symptoms R29.90 Weakness of left upper extremity R29.898 Overflow diarrhea R19.7 UTI (urinary tract infection) N39.0 Normocytic anemia D64.9 Hypokalemia E87.6 Acid reflux disease K21.9 Esophagitis presence: without esophagitis (7) Acid reflux disease Esophagitis presence: without esophagitis Qualified Code(s): K21.9 - Gastro- esophageal reflux disease without esophagitis
[2022-12-21 18:32] LABS: Ferritin 9.6 ng/ml (8-388)
[2022-12-21 18:39] LABS: Vitamin B12 > 1500 pg/ml (180-914)
[2022-12-21] MEDS ORDERED: OPTIRAY 320 500ml IV ONE (19:26)
[2022-12-21 19:39] LABS: Appearance Urine Clear (Clear); Bacteria Urine Automated 4+ (Negative); Bilirubin Urine Negative (Negative); Blood Urine Negative (Negative); Cast Urine Automated 0 /lpf (0-5); Color Urine Yellow; Epithelial Cell Urine Auto >30 /lpf (0-5); Glucose Urine UA Negative (Negative); Ketones Urine Negative (Negative); Leukocyte Esterase Urine 1+ (Negative); Nitrite Urine Positive (Negative); Protein Urine Negative (Negative); Specific Gravity Urine 1.026 (1.000-1.030); Urobilinogen Urine Negative (Negative); pH Urine 7.5 (4.5-7.5)
[2022-12-21 19:50] LABS: Urine Chloride < 15 mmol/L; Urine Potassium 31.3 mmol/L; Urine Sodium 47 mmol/L
--- NOTE | 2022-12-21 20:20 | CT Scan Report ---
Exam(s): CTA HEAD With Contrast IV Amt: 103 ml optiray 320 EXAM: CT Angiography Head With Intravenous Contrast CLINICAL HISTORY: Reason for exam: left upper extremity weakness. TECHNIQUE: Axial computed tomographic angiography images of the head with intravenous contrast. Automated exposure control was utilized for the study. A dose lowering technique was utilized adhering to the principles of ALARA. MIP reconstructed images were created and reviewed. CONTRAST: Patient received 103 ml optiray 320 of IV contrast COMPARISON: No relevant prior studies available. FINDINGS: Right internal carotid artery: No acute findings. Intracranial segment is patent with no significant stenosis. No aneurysm. Right anterior cerebral artery: Unremarkable. No occlusion or significant stenosis. No aneurysm. Right middle cerebral artery: Unremarkable. No occlusion or significant stenosis. No aneurysm. Right posterior cerebral artery: Unremarkable. No occlusion or significant stenosis. No aneurysm. Left internal carotid artery: No acute findings. Intracranial segment is patent with no significant stenosis. No aneurysm. Left anterior cerebral artery: Unremarkable. No occlusion or significant stenosis. No aneurysm. Left middle cerebral artery: Unremarkable. No occlusion or significant stenosis. No aneurysm. Left posterior cerebral artery: Unremarkable. No occlusion or significant stenosis. No aneurysm. Atherosclerotic changes of the cavernous carotid arteries. IMPRESSION: No large vessel occlusion. Electronically signed by: Leland Queen MD 12/21/22 19:57 PM
--- NOTE | 2022-12-21 20:20 | CT Scan Report ---
Exam(s): CTA NECK With Contrast IV Amt: 103 ml optiray 320 EXAM: CT Angiography Neck With Intravenous Contrast CLINICAL HISTORY: Reason for exam: left upper extremity weakness. TECHNIQUE: Routine carotid CT angiography protocol was performed with intravenous contrast. NASCET criteria using the distal ICAs for comparison were used for evaluation of stenoses. Automated exposure control was utilized for the study. A dose lowering technique was utilized adhering to the principles of ALARA. MIP reconstructed images were created and reviewed. CONTRAST: Patient received 103 ml optiray 320 of IV contrast COMPARISON: None. FINDINGS: Limitations: Evaluation is limited due to motion artifact. VASCULATURE: Right common carotid artery: Unremarkable. No occlusion or significant stenosis. No dissection. Right internal carotid artery: Unremarkable. Extracranial segment is patent with no occlusion or significant stenosis. No dissection. Right external carotid artery: Unremarkable. No occlusion. Right vertebral artery: PICA termination of the RIGHT vertebral artery. No occlusion or significant stenosis. No dissection. Left common carotid artery: Unremarkable. No occlusion or significant stenosis. No dissection. Left internal carotid artery: Unremarkable. Extracranial segment is patent with no occlusion or significant stenosis. No dissection. Left external carotid artery: Unremarkable. No occlusion. Left vertebral artery: Unremarkable. No occlusion or significant stenosis. No dissection. NECK: Bones/joints: Multilevel cervical spondylosis and degenerative disc disease. ACDF. IMPRESSION: No large vessel occlusion. PICA termination of the RIGHT vertebral artery. Electronically signed by: Leland Queen MD 12/21/22 19:58 PM
[2022-12-21] MEDS ORDERED: PANTOprazole 40 MG TAB PO SCH (21:34)
[2022-12-21] MEDS ORDERED: NON-FORMULARY MEDICATION (Food Supplemt, Lactose-Reduced Liquid) PO SCH (21:34)
[2022-12-21] MEDS ORDERED: ACETAMINOPHEN 325 MG TAB PO PRN (21:34)
[2022-12-21] MEDS ORDERED: MINERAL OIL ENEMA 133 ML BTL PR ONE (21:34)
[2022-12-21] MEDS ORDERED: LATANOPROST 0.005% OP SOLN 2.5 ML BTL OP SCH (21:34)
[2022-12-21] MEDS ORDERED: HYDROmorphone INJ 0.5 MG/0.5 ML SYR IV STA (21:47)
[2022-12-21] MEDS ORDERED: POTASSIUM CHLORIDE 40 MEQ in D5W AND 1/2NSS 1,000 ML IV SCH (22:00)
[2022-12-21] MEDS ORDERED: cefTRIAXone SODIUM 1,000 MG in DEXTROSE 5% AD-VAN 50 ML IV SCH (22:00)
[2022-12-21] MEDS: PANTOprazole 40 MG in SYRINGE 0 ML IV SCH (23:45)
[2022-12-21] MEDS: DORZOLAMIDE/TIMOLOL 22.3/6.8MG/ML 10 ML BTL OP SCH (23:45)
[2022-12-21] MEDS: POLYETHYLENE (MIRALAX) 17 GM PACK PO SCH (23:46)
[2022-12-21] MEDS: oxyCODONE HCL IR 5 MG TAB (IMMEDIATE RELEASE) PO PRN (23:51)
--- NOTE | 2022-12-22 00:04 | Magnetic Resonance Report ---
Exam(s): MRI HEAD Without Contrast EXAM: MR Head Without Intravenous Contrast CLINICAL HISTORY: Reason for exam: left upper extremity weakness. TECHNIQUE: Magnetic resonance images of the head/brain without intravenous contrast in multiple planes. COMPARISON: Comparison made to prior head CT from December 21, 2022. FINDINGS: Brain: Unremarkable. No mass. No hemorrhage. No acute infarct. The flow voids of the brain of the brain are intact. Ventricles: Moderate ventriculomegaly. Bones/joints: Mild soft tissue swelling about the right posterior scalp. Anterior cervical spine fusion. Critical spinal canal stenosis at C3 and C4. With impingement of the cord Sinuses: Chronic right maxillary, ethmoid and frontal sinusitis. No acute sinusitis. Mastoid air cells: Unremarkable as visualized. No mastoid effusion. Orbits: Unremarkable as visualized. IMPRESSION: No evidence of acute intracranial pathology. Critical spinal canal stenosis at C3, C4 and C5 with impingement of the cord. Recommend MRI of the cervical spine to evaluate for myelopathy. Right OMU pattern of obstructive sinusitis. Recommend ENT consult to evaluate for obstructing lesion. Electronically signed by: Kamila Pisano MD 12/22/22 00:03 AM
--- NOTE | 2022-12-22 00:16 | Magnetic Resonance Report ---
Exam(s): MRI C SPINE EXAM: MR Cervical Spine Without Intravenous Contrast CLINICAL HISTORY: Reason for exam: left supper extremity weakness, neck pain. TECHNIQUE: Magnetic resonance images of the cervical spine without intravenous contrast in multiple planes. COMPARISON: Comparison made to prior CT scan of the cervical spine from July 23, 2022. FINDINGS: This study is limited secondary to motion artifact. Vertebrae: There are 7 cervical type vertebral bodies with a mild generalized curved to the left and moderate cervical kyphosis. There is mild grade 1 anterolisthesis of C2 on C3 measuring 3.5 mm and retrolisthesis of the C4 and C5 measuring 4 mm and anterolisthesis of C7 on T1 measuring 3 mm. Patient is status post anterior interbody fusion of C3 and C4. The bone marrow signal is heterogeneous with reactive endplate changes. No acute fracture. There is advanced disc degeneration at C2-3, C4-5, C5-6 and C6-7. Spinal cord: The cord is flattened with increased T2/STIR signal at C4 and C5 with a critical spinal canal stenosis with AP diameter measuring 3. 7 mm. Soft tissues: The cervical flow voids are intact. IMPRESSION: There is a critical spinal canal stenosis at C4-5 with flattening the cord and increased cord signal at C4 and C5 concerning for cord edema. Recommend neurosurgical consult for possible decompression. Electronically signed by: Kamila Pisano MD 12/22/22 00:15 AM
[2022-12-22 00:44] LABS: Calcium 8.6 mg/dl (8.6-10.3); Creatinine Clr Calc Pharmacy 63.4 ml/min; Est GFR (African American) 115.2 ml/min; Est GFR (Non-African American) 99.4 ml/min; Potassium 3.2 mmol/L (3.5-5.1)
[2022-12-22 00:48] LABS: Hematocrit (blood only) 24.9 % (37.0-47.0); Hemoglobin 7.5 g/dl (12.0-16.0); Mean Corpuscular Hemoglobin 27.1 pg (25.0-34.0); Mean Corpuscular Hgb Conc 30.1 g/dL (32.0-36.0); Mean Corpuscular Volume 89.9 fL (80.0-100.0); Mean Platelet Volume 10.9 fL (9.4-12.4); Platelet Count 419 K/uL (130-400); RDW Coefficient of Variation 30.1 % (11.5-14.5); RDW Standard Deviation 94.6 fL (36.4-46.3); Red Blood Count 2.77 M/uL (4.20-5.40); White Blood Count 6.82 K/ul (4.8-10.8)
[2022-12-22] MEDS: POTASSIUM CHLORIDE / WTR 10 MEQ/100 ML PLCT IV SCH ×4 (01:13→04:47)
[2022-12-22] MEDS ORDERED: dexAMETHasone 10 MG in SYRINGE 0 ML IV ONE (01:45)
--- NOTE | 2022-12-22 02:29 | Communication Note ---
Date of Service: December 22, 2022 Cervical spine MRI results returned demonstrating critical spinal canal stenosis at C4-C5 with cord flattening, increased cord signal at C4-C5 concerning for cord edema, recommended neurosurgical consult or possible decompression. I did order dexamethasone 10 mg IV for concern of cord compression, given the pt's clinical history leading to admission. I also contacted [facility] for potential transfer and pt was accepted under the care of Dr. Godfrey Brown MD, spine surgeon. Bed not available at present. I placed consult for [facility] spine surgeon Dr. Galvan to evaluate in the AM. Pt NPO at present for potential intervention in AM if appropriate. Transfer paperwork not completed at present, awaiting orthopedic consultation before proceeding +/- transfer. Deferring further dexamethasone treatment to discretion of day team.
[2022-12-22] MEDS: oxyCODONE HCL IR 5 MG TAB (IMMEDIATE RELEASE) PO PRN ×2 (02:48→08:09)
[2022-12-22] MEDS: POLYETHYLENE (MIRALAX) 17 GM PACK PO SCH ×2 (06:57→13:40)
--- NOTE | 2022-12-22 07:04 | CT Scan Report ---
CERVICAL SPINE CT CT DOSE: 458.59 mGy.cm HISTORY: new onset central neck pain TECHNIQUE: Multiaxial CT images of the cervical spine were performed and reformatted in the sagittal and coronal plane without the use of contrast. A dose lowering technique was utilized adhering to th e principles of ALARA. COMPARISON: Cervical spine MRI 12/21/2022. FINDINGS: The visualized brain parenchyma is unremarkable. Prevertebral soft tissues are intact. Emph ysema. No pneumothorax. The C1-C2 interval remains intact. There is anterior cervical discectomy and fusion at C3-C4. The hardware appears intact. There is 2.5 mm of anterolisthesis of C2 on C3 with sev ere disc space narrowing. There are severe disc space narrowing at C4-C5, C5-C6, and C6-C7. No fractu res identified at the C1, C2, C5, C6, C7 levels. There are fractures involving the left pedicle and b ilateral lamina at the C3 and C4 levels as well as the left C3 and C4 transverse processes. There is associated 3.5 mm of anterolisthesis of C4 on C5. This could be posttraumatic. This results in severe central canal narrowing from the C3-C5 levels. IMPRESSION: 1. Acute fractures involving the left pedicles, bilateral lamina, and left transverse processes at th e C3 and C4 levels. There is associated 3.5 mm of anterolisthesis of C4 on C5 which could be posttrau matic. This results in severe central canal narrowing from the C3-C5 levels. Therefore, urgent surgic al consultation recommended for further evaluation. 2. C3-C4 ACDF. The hardware appears intact. 3. Advanced degenerative changes as described above. 4. This report was called/faxed to the referring physician following dictation. ACT 112: Negative or not required by law. Electronically signed by: Jez Lopez M.D. 12/22/2022 7:02 AM
--- NOTE | 2022-12-22 07:07 | XRay Report ---
XR shoulder LT min 2V routine CLINICAL HISTORY: left shoulder pain COMPARISON STUDY: None. FINDINGS: No fracture or dislocation of the left shoulder. Soft tissues are unremarkable. The left cl avicle is intact. Mild degenerative changes within the left shoulder. IMPRESSION: No fracture or dislocation within the left shoulder. ACT 112: Negative or not required by law. Electronically signed by: Jez Lopez M.D. 12/22/2022 7:06 AM
[2022-12-22 07:20] LABS: Basophils # (auto) 0.01 K/uL (0-0.2); Basophils % (auto) 0.2 %; Hematocrit (blood only) 24.5 % (37.0-47.0); Hemoglobin 7.5 g/dl (12.0-16.0); Immature Granulocytes # (auto) 0.03 K/uL (0.01-0.20); Immature Granulocytes % (auto) 0.5 %; Lymphocytes # (auto) 0.42 K/uL (1.2-3.4); Lymphocytes % (auto) 7.6 %; Mean Corpuscular Hemoglobin 27.2 pg (25.0-34.0); Mean Corpuscular Hgb Conc 30.6 g/dL (32.0-36.0); Mean Corpuscular Volume 88.8 fL (80.0-100.0); Mean Platelet Volume 11.1 fL (9.4-12.4); Monocytes # (auto) 0.12 K/uL (0.11-0.59); Monocytes % (auto) 2.2 %; Neutrophils # (auto) 4.93 K/uL (1.40-6.50); Neutrophils % (auto) 89.5 %; Platelet Count 405 K/uL (130-400); RDW Standard Deviation 93.8 fL (36.4-46.3); Red Blood Count 2.76 M/uL (4.20-5.40); White Blood Count 5.51 K/ul (4.8-10.8)
[2022-12-22] MEDS: DORZOLAMIDE/TIMOLOL 22.3/6.8MG/ML 10 ML BTL OP SCH (07:41)
[2022-12-22] MEDS: PANTOprazole 40 MG in SYRINGE 0 ML IV SCH (07:41)
[2022-12-22 07:42] LABS: Albumin Globulin Ratio 1.2 (0.9-2); Albumin Level 3.3 gm/dl (3.4-5.0); Bilirubin,Total 0.2 mg/dl (0.2-1.0); Calcium 8.7 mg/dl (8.6-10.3); Creatinine Clr Calc Pharmacy 60.8 ml/min; Est GFR (African American) 113.7 ml/min; Est GFR (Non-African American) 98.1 ml/min; Globulin 2.7 gm/dl (2.5-4.0); Magnesium 2.1 mg/dl (1.7-2.4); Phosphorus 2.8 mg/dl (2.5-4.9); Potassium 4.6 mmol/L (3.5-5.1)
[2022-12-22 07:48] LABS: Anisocytosis Present; Hypochromasia Present; Polychromasia 2+
[2022-12-22] MEDS ORDERED: CITALOPRAM 40 MG TAB PO SCH (09:00)
--- NOTE | 2022-12-22 09:25 | Gastrointestinal Consultation ---
Date of Consultation December 22, 2022 Assessment & Plan (1) Occult blood in stools: (2) Anemia: (3) Abnormal abdominal CT scan: Plan Patient with worsening neck pain and loss of sensation on her left side of her body from the neck down over the past month. She had MRI of spine showing critical spinal canal stenosis of C4-C5. she has pending transfer to [facility] for this and is also to see spinal surgery here. Over this time she has had heavy nsaid use that she admits is more than is recommended but she cannot quantify. She has had some constipation with overflow diarrhea. She cook report some darker stools that tested heme positive. CT with large stool ball in rectum as well as some colitis. The more pressing issue at the moment is her spinal issues. Hgb is stable currently. Case discussed with Dr. Chowdhury. - I advised patient to avoid nsaids. - trend H/H and transfuse as needed. currently hgb is stable. - continue protonix 40mg IV BID. - patient was given a fleet enema last evening for stool ball in rectum. Would continue with miralax 17gm TID. suspect colitis on CT is secondary to constipation. - no plan for an EGD at this time. Patient was agreeable with plan and wishes to defer EGD at this time. She tells me her main concern are her spinal issues. Supervising Physician Co-Signing Physician Notes Agree with SIMA Mace as above Abd: Soft, NT, ND Patient being transferred to [facility] Continue current therapy and supportive care. History of Present Illness Reason for Consultation: UGIB Requesting Physician: Ruben Brambila MD Attending Physician: Jason Oleary MD History of Present Illness Patient is a 72 year old female who presented to the ED yesterday with complaints of neck pain x 1 month with worsening weakness and sensation on the left side of her body from the neck down. She had had these symptoms over the past month. she admits that due to how much pain she has had that she has not been eating well. 1 week prior to admission she did have some episodes of diarrhea as well as nausea. she tells me that her GI symptoms were short lived and had resolved about a week ago. She tells me that over the past week she has actually been having issue with constipation to the point of skipping days between bowel movements but she tells me that when she would pass stool it would be loose and dark. She can pass stool without her realizing but often this is just small amounts. Upon evaluation at the ED she was found to have a hgb of 7.5 on 12/21/22. Her stools were also found to be heme positive. She admits to heavy use of aleve over the past month for her neck pain and cannot quantify how much she used but admits it was more than the recommended amount. GI asked to see for possible UGIB. 12/22 hgb is stable from yesterday at 7.5. She denies any current issues with nauesa, vomiting, heartburn, dysphagia, abdominal pain, or brbpr. During her stay she had a MRI of her spine showing critical spinal canal stenosis of C4-C5. she is pending possible transfer to [facility]. She did suffer a fall where she hit her head while here, but had no LOC. CT 12/21/22 a large stool ball in rectum with rectal wall thickening. EGD 2011 debris in esophagus, LA-A esophagitis, hiatal hernia, schatzkis ring, gastritis. Allergies Allergy/AdvReac Type Severity Reaction Status Date / Time No Known Allergies Allergy Verified 12/21/22 18:08 Home Medications Medication Instructions Recorded Confirmed Type dorzolamide 22.3 mg-timolol 6.8 1 drops ophthalmic (eye) BID 06/06/19 12/21/22 History mg/mL eye drops latanoprost 0.005 % eye drops 1 drops ophthalmic (eye) QPM 06/06/19 12/21/22 History atorvastatin 20 mg tablet 20 mg PO DAILY #90 tabs 01/31/22 12/21/22 Rx potassium bicarbonate-citric acid 25 meq PO BID #180 ea 03/20/22 12/21/22 Rx 25 mEq effervescent tablet (Effer-K) potassium, sodium phosphates 280 1 packet PO DAILY #100 ea 03/20/22 12/21/22 Rx mg-160 mg-250 mg oral powder packet (Phos-NaK) omeprazole 20 mg capsule,delayed 20 mg PO DAILY #90 caps 05/22/22 12/21/22 Rx release citalopram 40 mg tablet 40 mg PO DAILY #90 tabs 08/03/22 12/21/22 Rx food supplemt, lactose-reduced 3 ea PO TID 12/21/22 12/21/22 History Patient History Medical History Acid reflux disease Essential thrombocythemia 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 Left forearm fracture Osteoporosis Sacroiliitis Scoliosis of thoracolumbar region due to degenerative disease of spine in adult Surgical History S/P cervical disc replacement Family History Mother Myocardial infarction Father COPD (chronic obstructive pulmonary disease) Other Heart disease Denies family history of Ovarian cancer Prostate cancer Kidney disease Breast cancer Colorectal cancer Social History Smoking Status: Current every day smoker Tobacco Type: Cigarettes Age Started Using Tobacco: 29; Age Quit Using Tobacco: 52; packs per day: 2; Second Hand Exposure: Yes (her ex- used to smoke around her ); Do You Dip or Chew Tobacco: No; Hx Alcohol Use: No Hx Substance Use: No Preferred Language: Bulgarian Communication Ability: Effective Visual Impairment: No Limitations Hearing Ability: Normal Recreational Therapy Technician Required: No Beliefs That Will Affect Care: None marital status: Current Living Situation: Alone current occupational status: retired current occupation: used to work as a cook for [email or web address] Other Information That Helps Us Care for You: No Feels Safe at Home: Yes Safety Concerns: Feels Safe At This Time Childhood Exposure to Second-Hand Smoke: Yes Diet: regular Dental Care, Regularly: Yes Physical Activity Frequency: 3-4 Times per Week Seatbelt Use: always Sunscreen Use: No Assistive Devices: None Review of Systems Review of Systems: All systems reviewed & are unremarkable except as noted in HPI & below Physical Exam Physical Exam: Thin appearing. Respiratory: normal respiratory effort, lungs clear to auscultation Cardiovascular: RRR, no murmur, no edema Gastrointestinal (Abdomen): normal bowel sounds, soft, nontender, no hepatosplenomegaly Skin: no rashes, warm and dry Psychiatric: Orientation: alert and oriented x 3 Results & Data Vital Signs (Past 12 Hours) Vital Signs Temp Pulse Pulse Resp BP Pulse Ox O2 Del Method 12/22/22 08:20 98.4 F 78 18 91/59 L 85 L Room Air 12/22/22 08:56 67 96 Nasal Cannula 12/22/22 06:22 95/63 L 12/22/22 03:19 98.6 F 71 18 90/56 L 93 Room Air 12/21/22 21:38 76 12/21/22 21:46 98.2 F 81 18 98/61 L 95 Room Air O2 Flow Rate 12/22/22 08:20 12/22/22 08:56 2 12/22/22 06:22 12/22/22 03:19 12/21/22 21:38 12/21/22 21:46 PG Care Time/CCT Total # of Minutes Spent Total Time Spent with Patient: Total time spent is greater than 50% in coordination of care (as documented) at patient's floor/unit and/or counseling patient: Coding Level of Care Code 08710 INT INP/OBS CARE 2/55MIN Diagnoses Occult blood in stools R19.5 Anemia D64.[address] scan R93.5 Time Spent (min) 60
[2022-12-22] MEDS ORDERED: HYDROmorphone INJ 1 MG/ML SYRINGE IV PRN (09:41)
[2022-12-22] MEDS ORDERED: HYDROmorphone INJ 0.5 MG/0.5 ML SYR IV PRN (09:41)
[2022-12-22] MEDS ORDERED: bisacodyL 10 MG SUPP PR STA (10:28)
--- NOTE | 2022-12-22 18:20 | Discharge Summary ---
Date of Service December 22, 2022 Admission HPI Per Admitting Provider Luz Smith is a 72 year old female who presents to the ER with 1 week of diarrhea, 3 days of left sided weakness and sensation on the left side with reduced urination and ankle swelling. She reports significant decline over months with weight loss. Diarrhea with associated nausea and loss of appetite. No watery stools, abdominal pain, melena or hematochezia. Not had a problem with constipation or diarrhea prior to this. No traumatic event 3 days ago. Sudden onset left upper extremity weakness, unable to lift up her arm. No other extremity weakness or change in sensation. No facial droop, change in speech, hearing or vision. She notes ongoing neck pain and reports prior surgery performed by Dr Correa over 10 years ago but cannot remember exactly what this was, however the central neck pain has been worse over the last 3 days in addition. Regarding the lower extremity swelling she denies any prior history of this. No history of heart failure. No shortness of breath, orthopnea, PND or chest pain. Regarding her anemia she denies any dizziness, shortness of breath or chest pain. She denies any hematemesis, hemoptysis, hematochezia or melena. Principal Diagnosis actue Cervical myopathy c4-5 wtih cord edema, left arm weakness Acute fractures involving the left pedicles bilateral foraminal left transfer process at the C3-4 levels with 3.5 mm anterolisthesis of C4-C5 Patient with significant stool ball with obstipation and overflow diarrhea Possible suspected UTI present on admission Patient excepted in transfer to [facility] Dr. Wagoner Discharge Exam Awake alert appropriate left arm weakness without spasticity or clonus Rectal exam done in the presence of a female nurse with a large stool ball perhaps a size of a large peach or apple this was attempted to be broken up and extracted but difficulty due to the size of her rectum declog suppository was given Discharge Data Allergies Allergy/AdvReac Type Severity Reaction Status Date / Time No Known Allergies Allergy Verified 12/21/22 18:08 Consultations 12/21/22 16:55 ED Decision to Admit Stat 12/22/22 02:21 Consult Orthopedic Surgery Routine 12/22/22 06:45 Consult Gastroenterology Routine Ordered Studies Chest X-Ray 12/21/22 14:28 XR chest 1V portable CLINICAL HISTORY: weakness TECHNIQUE: Single frontal radiograph of the chest was obtained. Comparison: Comparison is made to chest radiograph 11/23/2010 FINDINGS: No lines and tubes are seen. Calcified aortic knob is seen. Reticular interstitial opacities are seen. No evidence of pleural effusion or pneumothorax. IMPRESSION: No acute chest disease. ACT 112: Negative or not required by law. Electronically signed by: Yzaan Wilkinson M.D. 12/21/2022 4:[address] 12/21/22 14:30 CT SCAN OF THE BRAIN WITHOUT IV CONTRAST CLINICAL HISTORY: Right arm weakness. COMPARISON STUDY: CT of the brain dated 09/06/2011. TECHNIQUE: Unenhanced axial CT scan of the brain is performed from the vertex to the skull base. A dose lowering technique was utilized adhering to the principles of ALARA. CT DOSE: 547.75 mGy.cm FINDINGS: Brain parenchyma: There is age-related involutional change noting mild subcortical and periventricular microangiopathic disease. There is no hemorrha ge, mass effect, or evidence of acute territorial ischemia by CT criteria. Lim- white matter differentiation is preserved. No extra-axial fluid collection is seen. Ventricles, sulci, cisterns: Prominent secondary to involutional change. Intracranial vasculature: There is mild atherosclerotic calcification of the cavernous carotid arteries. Calvarium: Unremarkable. Sinuses and mastoids: There is opacification of the visualized right maxillary antrum. Trace fluid is seen in the sphenoid sinuses. There is near complete opacification of the right frontal sinus. The mastoid air cells are well pneumatized. Orbits: The bony orbits are grossly intact. IMPRESSION: There is no hemorrhage, mass effect, or evidence of acute territorial ischemia by CT criteria. ACT 112: Negative or not required by law. Electronically signed by: Gerardo Hager M.D. 12/21/2022 3:53 PM Abdomen/Pelvis CT 12/21/22 16:32 CT abd pelvis IV con only CLINICAL HISTORY: abdominal swelling, decreased UOP TECHNIQUE: Helical axial images of the abdomen and pelvis were obtained and displayed. Automated dose lowering techniques and/or adjustment according to patient size were utilized for this exam. This exam was performed with intravenous contrast. CT DOSE: 290.84 mGy.cm COMPARISON: Comparison is made to CT abdomen pelvis 04/27/2009 FINDINGS: Lower chest: Bibasilar atelectasis versus scarring is seen. Bronchial wall thickening is seen with diffuse emphysema. Groundglass opacities in the bilateral lower lobes are nonspecific. Liver: Unremarkable. No focal lesions are seen. Gallbladder and biliary tree: No calcified gallstones. Normal caliber wall. No intra- or extrahepatic biliary ductal dilation. Pancreas: Unremarkable, no focal lesions. Spleen: Unremarkable. Adrenals: Unremarkable. Kidneys and ureters: Subcentimeter hypodensities are too small to characterize. Bladder: Distention of the bladder is seen. Reproductive organs: Patient is status post hysterectomy. Bowel: There is a large stool ball in rectum with thickening of the wall. Moderate stool burden is seen. Nondilated loops of small bowel seen. Lymph nodes Retroperitoneal: Unremarkable. Pelvic: Unremarkable. Mesenteric: Unremarkable. Peritoneum: There is a paucity of mesenteric fat limiting evaluation. Vessels: Atherosclerotic calcifications are seen. Abdominal wall: Unremarkable. Bones: Degenerative changes are seen along with levoscoliosis. IMPRESSION: There is prominent stool ball with rectal wall thickening compatible cerebral colitis. A paucity of mesenteric fat limits evaluation, however no other acute abnormalities are seen. ACT 112: Negative or not required by law. Electronically signed by: Yazan Wilkinson M.D. 12/21/2022 5:[address] 12/21/22 18:[address] DOSE: 458.59 mGy.cm HISTORY: new onset central neck pain TECHNIQUE: Multiaxial CT images of the cervical spine were performed and reformatted in the sagittal and coronal plane without the use of contrast. A dose lowering technique was utilized adhering to the principles of ALARA. COMPARISON: Cervical spine MRI 12/21/2022. FINDINGS: The visualized brain parenchyma is unremarkable. Prevertebral soft tissues are intact. Emphysema. No pneumothorax. The C1-C2 interval remains intact. There is anterior cervical discectomy and fusion at C3-C4. The hardware appears intact. There is 2.5 mm of anterolisthesis of C2 on C3 with severe disc space narrowing. There are severe disc space narrowing at C4-C5, C5-C6, and C6- C7. No fractures identified at the C1, C2, C5, C6, C7 levels. There are fractures involving the left pedicle and bilateral lamina at the C3 and C4 levels as well as the left C3 and C4 transverse processes. There is associated 3.5 mm of anterolisthesis of C4 on C5. This could be posttraumatic. This results in severe central canal narrowing from the C3-C5 levels. IMPRESSION: 1. Acute fractures involving the left pedicles, bilateral lamina, and left transverse processes at the C3 and C4 levels. There is associated 3.5 mm of anterolisthesis of C4 on C5 which could be posttraumatic. This results in severe central canal narrowing from the C3-C5 levels. Therefore, urgent surgical consultation recommended for further evaluation. 2. C3-C4 ACDF. The hardware appears intact. 3. Advanced degenerative changes as described above. 4. This report was called/faxed to the referring physician following dictation. ACT 112: Negative or not required by law. Electronically signed by: Jez Lopez M.D. 12/22/2022 7:02 AM Head CTA 12/21/22 18:40 Exam(s): CTA HEAD With Contrast IV Amt: 103 ml optiray 320 EXAM: CT Angiography Head With Intravenous Contrast CLINICAL HISTORY: Reason for exam: left upper extremity weakness. TECHNIQUE: Axial computed tomographic angiography images of the head with intravenous contrast. Automated exposure control was utilized for the study. A dose lowering technique was utilized adhering to the principles of ALARA. MIP reconstructed images were created and reviewed. CONTRAST: Patient received 103 ml optiray 320 of IV contrast COMPARISON: No relevant prior studies available. FINDINGS: Right internal carotid artery: No acute findings. Intracranial segment is patent with no significant stenosis. No aneurysm. Right anterior cerebral artery: Unremarkable. No occlusion or significant stenosis. No aneurysm. Right middle cerebral artery: Unremarkable. No occlusion or significant stenosis. No aneurysm. Right posterior cerebral artery: Unremarkable. No occlusion or significant stenosis. No aneurysm. Left internal carotid artery: No acute findings. Intracranial segment is patent with no significant stenosis. No aneurysm. Left anterior cerebral artery: Unremarkable. No occlusion or significant stenosis. No aneurysm. Left middle cerebral artery: Unremarkable. No occlusion or significant stenosis. No aneurysm. Left posterior cerebral artery: Unremarkable. No occlusion or significant stenosis. No aneurysm. Atherosclerotic changes of the cavernous carotid arteries. IMPRESSION: No large vessel occlusion. Electronically signed by: Leland Queen MD 12/21/22 19:57 PM Neck CTA 12/21/22 18:40 Exam(s): CTA NECK With Contrast IV Amt: 103 ml optiray 320 EXAM: CT Angiography Neck With Intravenous Contrast CLINICAL HISTORY: Reason for exam: left upper extremity weakness. TECHNIQUE: Routine carotid CT angiography protocol was performed with intravenous contrast. NASCET criteria using the distal ICAs for comparison were used for evaluation of stenoses. Automated exposure control was utilized for the study. A dose lowering technique was utilized adhering to the principles of ALARA. MIP reconstructed images were created and reviewed. CONTRAST: Patient received 103 ml optiray 320 of IV contrast COMPARISON: None. FINDINGS: Limitations: Evaluation is limited due to motion artifact. VASCULATURE: Right common carotid artery: Unremarkable. No occlusion or significant stenosis. No dissection. Right internal carotid artery: Unremarkable. Extracranial segment is patent with no occlusion or significant stenosis. No dissection. Right external carotid artery: Unremarkable. No occlusion. Right vertebral artery: PICA termination of the RIGHT vertebral artery. No occlusion or significant stenosis. No dissection. Left common carotid artery: Unremarkable. No occlusion or significant stenosis. No dissection. Left internal carotid artery: Unremarkable. Extracranial segment is patent with no occlusion or significant stenosis. No dissection. Left external carotid artery: Unremarkable. No occlusion. Left vertebral artery: Unremarkable. No occlusion or significant stenosis. No dissection. NECK: Bones/joints: Multilevel cervical spondylosis and degenerative disc disease. ACDF. IMPRESSION: No large vessel occlusion. PICA termination of the RIGHT vertebral artery. Electronically signed by: Leland Queen MD 12/21/22 19:58 PM Shoulder X-Ray 12/21/22 18:40 XR shoulder LT min 2V routine CLINICAL HISTORY: left shoulder pain COMPARISON STUDY: None. FINDINGS: No fracture or dislocation of the left shoulder. Soft tissues are unremarkable. The left clavicle is intact. Mild degenerative changes within the left shoulder. IMPRESSION: No fracture or dislocation within the left shoulder. ACT 112: Negative or not required by law. Electronically signed by: Jez Lopez M.D. 12/22/2022 7:06 AM Brain MRI 12/21/22 21:34 Exam(s): MRI HEAD Without Contrast EXAM: MR Head Without Intravenous Contrast CLINICAL HISTORY: Reason for exam: left upper extremity weakness. TECHNIQUE: Magnetic resonance images of the head/brain without intravenous contrast in multiple planes. COMPARISON: Comparison made to prior head CT from December 21, 2022. FINDINGS: Brain: Unremarkable. No mass. No hemorrhage. No acute infarct. The flow voids of the brain of the brain are intact. Ventricles: Moderate ventriculomegaly. Bones/joints: Mild soft tissue swelling about the right posterior scalp. Anterior cervical spine fusion. Critical spinal canal stenosis at C3 and C4. With impingement of the cord Sinuses: Chronic right maxillary, ethmoid and frontal sinusitis. No acute sinusitis. Mastoid air cells: Unremarkable as visualized. No mastoid effusion. Orbits: Unremarkable as visualized. IMPRESSION: No evidence of acute intracranial pathology. Critical spinal canal stenosis at C3, C4 and C5 with impingement of the cord. Recommend MRI of the cervical spine to evaluate for myelopathy. Right OMU pattern of obstructive sinusitis. Recommend ENT consult to evaluate for obstructing lesion. Electronically signed by: Kamila Pisano MD 12/22/22 00:03 AM Cervical Spine MRI 12/21/22 21:34 Exam(s): MRI C SPINE EXAM: MR Cervical Spine Without Intravenous Contrast CLINICAL HISTORY: Reason for exam: left supper extremity weakness, neck pain. TECHNIQUE: Magnetic resonance images of the cervical spine without intravenous contrast in multiple planes. COMPARISON: Comparison made to prior CT scan of the cervical spine from July 23, 2022. FINDINGS: This study is limited secondary to motion artifact. Vertebrae: There are 7 cervical type vertebral bodies with a mild generalized curved to the left and moderate cervical kyphosis. There is mild grade 1 anterolisthesis of C2 on C3 measuring 3.5 mm and retrolisthesis of the C4 and C5 measuring 4 mm and anterolisthesis of C7 on T1 measuring 3 mm. Patient is status post anterior interbody fusion of C3 and C4. The bone marrow signal is heterogeneous with reactive endplate changes. No acute fracture. There is advanced disc degeneration at C2-3, C4-5, C5-6 and C6-7. Spinal cord: The cord is flattened with increased T2/STIR signal at C4 and C5 with a critical spinal canal stenosis with AP diameter measuring 3. 7 mm. Soft tissues: The cervical flow voids are intact. IMPRESSION: There is a critical spinal canal stenosis at C4-5 with flattening the cord and increased cord signal at C4 and C5 concerning for cord edema. Recommend neurosurgical consult for possible decompression. Electronically signed by: Kamila Pisano MD 12/22/22 00:15 AM Hospital Course (1) Weakness of left upper extremity: Patient with cervical myelopathy due to severe central canal narrowing at C3-5 levels due to acute fracture involving the left pedicles bilateral lamina left transverse process of C3 and 4 with a 3.5 mm anterolisthesis of C4-5 patient has not had a recent fall she had a fall about 2 weeks prior she did have a fall in our emergency department but this was without significant injury this was done after the CT scan but before the MRI scan and the injuries appear to be present on the CT scan (2) Overflow diarrhea: Mineral Oil enema, MiraLAX 17g PO TID Attempts at manual disimpaction completely successful Likely contributing towards her poor appetite (3) UTI (urinary tract infection): UA concerning for infection after patient was seen. Only urine symptom noted during history was reduced urination. Will start ceftiaxone 1g IV Follow up urine cultures (4) Normocytic anemia: New since 2021 although unclear how acute Retic count, iron studies, B12, folate and LDH added to investigate further Total Time Total Time Spent Total Time Spent (In Minutes): It required greater than 30 minutes to prepare this patient for discharge this includes discussion with transfer center at [facility] and calling her family member for update Discharge Plan Discharge Items Patient Disposition: Transfer Acute [facility] Hospital Reason For Visit: HYPOKALEMIA, STROKE LIKE SYMPTOMS Discharge Diagnosis: cervical spinal stenosis with chord edema Activity: Per Instructions section Non-emergency contact: Primary Care Provider Call non-emergency contact if: your symptoms worsen Follow-up/Referrals: Lyn Handy MD [Primary Care Provider] - Diet: Regular Addtl Attending Provider Instructions: please follow up as per [facility] instructions Pending Studies at Discharge: Yes (urine culture) Stand-Alone [facility] Patient informed of condition?: Yes DNR: Yes Discharge Level of Care: Other Communicable Disease: No Discharge Prognosis: Stable Lines: None Urinary Catheter: No Medications and DC Order Prescriptions: Continued atorvastatin 20 mg tablet 20 mg PO DAILY Qty: 90 3RF omeprazole 20 mg capsule,delayed release(DR/EC) 20 mg PO DAILY Qty: 90 1RF citalopram 40 mg tablet 40 mg PO DAILY Qty: 90 3RF Effer-K 25 mEq tablet, effervescent 25 meq PO BID Qty: 180 3RF Rx Instructions: unflavored potassium, sodium phosphates [Phos-NaK] 280-160-250 mg powder in packet 1 packet PO DAILY Qty: 100 2RF dorzolamide-timolol 22.3-6.8 mg/mL drops 1 drops OP BID latanoprost 0.005 % drops 1 drops OP QPM food supplemt, lactose-reduced Liquid 3 ea PO TID Rx Instructions: RICH CHOCOLATE FLAVORED Discharge Orders: Discharge Order (Routine); Ordered 12/22/22 Ordered By: Jason Oleary Admission Data Admit Date/Time: 12/21/22 18:46 Attending Provider: Jason Oleary Admit Provider: Stevenson Campos Primary Care Provider: Lyn Handy Other Providers: Stevenson Campos ; Eddie Galvan ; Walt Gomez ; Carlton Chowdhury ; Shilpi Breaux ; Deirdre Edmond ; Aria Escamilla ; Bambi Maciel ; Kareem Altamirano ; Víctor Orozco ; Elizabeth Rosenthal ; Logan Trujillo ; Doe Davis ; Nikkie Flood ; Pita Keane ; Lissette Rodríguez ; Amanda Oseguera ; Rachelle Vaughn ; Dave Brink ; Stone Mondragon ; Beth Nicolas ; Cisco Mcpherson Jr Other Interventions: Discharge Summary Assessment (RN) Last Done: 12/22/22 14:52 Coding Level of Care Code 13061 INP/OBS DISCH >30 MIN Diagnoses Weakness of left upper extremity R29.898 Overflow diarrhea R19.7 UTI (urinary tract infection) N39.0 Normocytic anemia D64.9
== END 2022-12-22 15:21 | disposition short-term general hospital (02) ==
LOC: ED 14:02 → 2N 14:02 → SUATTDRO 18:46 → 2N 20:25

== ENCOUNTER 2023-01-03 00:23 | Inpatient (IN) ==
[2023-01-03] MEDS: oxyCODONE HCL IR 5 MG TAB (IMMEDIATE RELEASE) PO PRN ×4 (04:29→17:05)
[2023-01-03] MEDS ORDERED: ACETAMINOPHEN 325 MG TAB PO STA (04:33)
--- NOTE | 2023-01-03 04:33 | History & Physical Report ---
Date of Service January 03, 2023 Assessment & Plan (1) Cervical spinal stenosis: Plan: Patient is a 72-year-old female with past medical history of generalized weakness, chronic malnutrition, anemia, sacroiliitis, scoliosis, hyperlipidemia, osteoporosis, acid reflux, glaucoma, and polycythemia vera who presents to the hospital via direct admission from [facility]. Patient was transferred to [facility] on 12/22/2022 for the need of neurosurgical consult due to severe/critical central canal narrowing in the C3-C5 levels. So far, patient has had no surgical intervention which has been deferred to outpatient. She is currently admitted to the [facility] surgical floor and is hemodynamically stable. -Admit to [facility] -Dr. Harding discussed case with both Dr. Kline, [facility] hospitalist, and Dr. Sanchez, on-call [facility] neurosurgeon. -Neurosurgery feels that the patient would not survive the surgery due to severe malnutrition, anemia and osteoporosis. Feels that they would do more harm than good by proceeding with surgery. -Given not a safe candidate for surgical intervention per [facility] neurosurgery, defer intervention to outpatient with a focus on improving nutrition status and physical therapy -We will get referrals to rehab when able and hopes to restore some of the defects the patient has lost -PT/OT consulted for continued work and evaluation, appreciate recommendations -Typically would consult ortho spine, however, no coverage at this time -Consider palliative consult to discuss goals of care given poor surgical candidate -Oxycodone every 4 hours as needed for pain -Schedule Tylenol -C-collar attempted at [facility], however, patient reports this made pain worse (2) Anemia: Plan: -Hemoglobin currently at 10.6 status post [facility] interventions -Secondary to poor nutrition, iron deficiency, and recent upper GI bleed -Typed and screened, still needs but consented if bleeding were to return -Continue iron supplementation (3) UGIB (upper gastrointestinal bleed): Plan: -Seems to be resolved given elevation of Hgb to 10.6 on admission -Serial CBC monitoring -Continue BID PPI (4) Iron deficiency: Plan: -Patient is status post Venofer infusions x3 while at [facility] -Continue oral iron supplementation (5) Chronic malnutrition: Plan: -Dietitian consulted, appreciate recommendations -Consider GI consult for PEG tube if patient is willing and benefit outweighs risk -Boost shakes (6) Hyperlipidemia: Plan: - Continue atorvastatin 20 mg daily (7) Acid reflux disease: Plan: - Twice daily PPI as above (8) Osteoporosis: Plan: - Does not appear to be on any bisphosphonate therapy or vitamin D (9) Depression: Plan: - Continue citalopram Plan Diet: Regular, heart healthy with easy to chew consistency DVT prophylaxis: None until GI bleed has been given to be stopped, SCDs [facility], [facility] and OT ordered, consider palliative consult for discussion of goals of care CODE STATUS: Full code per discussion with patient Admission and Anticipated Discharge Date Admission Date: January 03, 2023 History of Present Illness Chief Complaint: left arm weakness Primary Care Provider: Lny Handy MD Patient is a 72-year-old female with past medical history of generalized weakness, chronic malnutrition, anemia, sacroiliitis, scoliosis, hyperlipidemia, osteoporosis, acid reflux, glaucoma, and polycythemia vera who presents to the hospital via direct admission from [facility]. Patient was transferred to [facility] on 12/22/2022 for the need of neurosurgical consult due to severe/critical central canal narrowing in the C3-C5 levels. Please see previous notes for additional detail. To summarize stay at [facility] per transfer notes and discussion with on-call hospitalist and spinal surgeon at [facility]: Patient was excepted for neurosurgery consultation, however, several other factors had come up during hospitalization including anemia requiring blood transfusion secondary upper GI bleed. While she was there, she received an EGD which showed 3 nonbleeding gastric ulcers. Neurosurgery did see the patient, however, due to the patient's anemia and malnutrition, they felt that she was a poor surgical candidate and wanted to defer any surgery to the outpatient setting. Additionally, a PEG tube was considered while she was there, however, GI felt that having this should be deferred in the setting of acute upper GI bleed and we had to wait until the ulcers healed. A colonoscopy was also performed, but it was a poor study due to impacted stool. Because no surgical intervention could be done during the patient's hospitalization at [facility], patient was transferred back to [facility] for continued management. When talking with the patient, patient is overall confused as to why she has been transferred back to this facility. She is upset that she has not gotten the surgery she needs and she feels that her arm is actually gotten worse while she was at [facility]. She starts tearing up during conversation in regard to how she was just left in her room for days without being walked or given exercise and feels that she has become deconditioned because of that. Patient reports that her neck is still very stiff due to pain which limits her rotation, flexion, and extension of the neck severely. Allergies Allergy/AdvReac Type Severity Reaction Status Date / Time No Known Allergies Allergy Verified 12/21/22 18:08 Home Medications Medication Instructions Recorded Confirmed Type dorzolamide 22.3 mg-timolol 6.8 1 drops ophthalmic (eye) BID 06/06/19 12/21/22 History mg/mL eye drops latanoprost 0.005 % eye drops 1 drops ophthalmic (eye) QPM 06/06/19 12/21/22 History atorvastatin 20 mg tablet 20 mg PO DAILY #90 tabs 01/31/22 12/21/22 Rx potassium bicarbonate-citric acid 25 meq PO BID #180 ea 03/20/22 12/21/22 Rx 25 mEq effervescent tablet (Effer-K) potassium, sodium phosphates 280 1 packet PO DAILY #100 ea 03/20/22 12/21/22 Rx mg-160 mg-250 mg oral powder packet (Phos-NaK) omeprazole 20 mg capsule,delayed 20 mg PO DAILY #90 caps 05/22/22 12/21/22 Rx release citalopram 40 mg tablet 40 mg PO DAILY #90 tabs 08/03/22 12/21/22 Rx food supplemt, lactose-reduced 3 ea PO TID 12/21/22 12/21/22 History 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 Left forearm fracture Osteoporosis Sacroiliitis Scoliosis of thoracolumbar region due to degenerative disease of spine in adult Surgical History S/P cervical disc replacement Family History Mother Myocardial infarction Father COPD (chronic obstructive pulmonary disease) Other Heart disease Denies family history of Ovarian cancer Prostate cancer Kidney disease Breast cancer Colorectal cancer Social History Smoking Status: Current every day smoker Tobacco Type: Cigarettes Age Started Using Tobacco: 29; Age Quit Using Tobacco: 52; packs per day: 2; Second Hand Exposure: Yes (her ex- used to smoke around her ); Do You Dip or Chew Tobacco: No; Hx Alcohol Use: Yes Alcohol type: beer Alcohol Intake Frequency: Monthly or Less Hx Substance Use: No Preferred Language: Greenlandic Communication Ability: Effective Visual Impairment: No Limitations Hearing Ability: Normal Gunner'S Mate G Required: No Beliefs That Will Affect Care: None marital status: Current Living Situation: Alone Current Living Situation Comment: I live at home current occupational status: retired current occupation: used to work as a cook for [employer] Other Information That Helps Us Care for You: No Feels Safe at Home: Yes Safety Concerns: Feels Safe At This Time Childhood Exposure to Second-Hand Smoke: Yes Diet: regular Dental Care, Regularly: Yes Physical Activity Frequency: 3-4 Times per Week Seatbelt Use: always Sunscreen Use: No Assistive Devices: None Review of Systems Review of Systems: All systems reviewed & are unremarkable except as noted in HPI & below Physical Exam Constitutional: WD/WN, vitals as above + frail appearing, cooperative, comfortable and + malnourished Eyes: + anicteric sclerae Neck: normal visual inspection Respiratory: normal respiratory effort; no respiratory distress Auscultation: lungs clear to auscultation bilaterally Cardiovascular: Rate/Rhythm: regular rate and regular rhythm Vessels: no JVD Extremities: no edema Gastrointestinal (Abdomen): normal bowel sounds, soft, nontender, no hepatosplenomegaly Musculoskeletal: Head/Neck/Chest: normocephalic and head atraumatic Extremities: + abnormal strength (2/5 strength in the LUE in flexion, reduced sales service representative strength on the L.) Skin: no rashes, warm and dry Neurologic: awake Cranial Nerves: PERRL and normal facial strength Psychiatric: Orientation: alert and oriented x 3 Affect: + depressed affect Results & Data Results & Data Vital Signs (Past 12 Hours) Vital Signs Temp Pulse Resp BP Pulse Ox O2 Del Method 01/03/23 03:51 36.9 C 78 18 133/80 93 Room Air Supervising Physician Co-Signing Physician Notes I personally saw and examined the patient. I verified all benson points and agree with Huang Chawla PGY-2 with the following exceptions and/or additions: Subjective: 72 yo F Hx DDD, constipation, PUD presents as direct admission from [facility] for ongoing care. At time of admission, awaiting discharge paperwork from tertiary facility. From patient description, on arrival to [facility] she was told they had to hold off on neck surgery due to concerns for GI bleeding and malnutrition. She underwent colonoscopy which was poorly visualized due to stool burden. EGD showed several nonbleeding ulcers and she was continued on PPI. GI considered PEG tube at one time during [facility] hospitalization, however was deferred due to PUD until ulcers had more time to heal. She was placed in a C collar, however she reports that the collar makes the pain worse. She was to follow up with Neurosurgery outpatient for consideration of surgical intervention. She notes that since going to [facility], her left hand weakness and difficulty with lifting her left arm over her head are both worse. She notes having PT about 3 times while at outside facility, but reports she feels her legs are weaker due to deconditioning as well. Spoke with Dr. Kline (on-call Hospitalist at [facility]), as well as Dr. Sanchze (on- call Neurosurgeon) for further information. Physical exam: Vitals reviewed Gen: Alert and oriented, NAD, thin and frail appearing HEENT: anicteric sclerae, EOMI CV: RRR no murmurs Pulm: CTAB no wheezes or crackles Abd: +BS soft NT ND no masses Ext: no edema, 2+ DP pulses Skin: no rashes, warm/dry Neuro: Patient with subjective numbness/tingling sensation to left upper extremity compared to the right. Noted to have decreased handgrip strength 4/5 on left side compared to right side Assessment and Plan: C spinal stenosis, osteoporosis: In speaking with the on-call Neurosurgeon at [facility], her surgery would be significant, possibly C1-T2, with significant swan deformity, osteoporosis, and malnutrition such that Neurosurgery has concerns about her mortality from surgery, and that risk exceeds benefit in her case. They did not have specific recommendations with regard to C collar. Will defer as patient reports it makes the pain worse. I would recommend palliative care consultation at this time, given likely non-operable neurologic problem that appears to be worsening. Did discuss likely non-operability of C spine pathology with patient. Would loop in patient's Ortho Spine provider Dr. Galvan when available; not quality control microbiologist at this time. PT and OT ordered, will ultimately very likely need rehab services on discharge. UGIB, anemia, iron deficiency: Received Venofer x3 doses as well as 1U PRBCs at [facility]. Hgb 7.5-> 10.6 with these interventions. Continue iron supplement. No evidence of acute blood loss at this time. Continue BID PPI. Malnutrition: Chronic problem, has been <40kg since first readings in chart in 2019. PEG tube considered at [facility], however deferred due to acute PUD. Carton Waxing Machine Operator consulted, appreciate recommendations. Started thiamine, multivitamin, folic acid supplements added. Nutritional supplements such as Boost ordered. Plan otherwise as stated in plan as written by resident provider. (7) Acid reflux disease Esophagitis presence: without esophagitis Qualified Code(s): K21.9 - Gastro- esophageal reflux disease without esophagitis (8) Osteoporosis Osteoporosis type: age-related Presence of current pathological fracture: without current pathological fracture Qualified Code(s): M81.0 - Age-related osteoporosis without current pathological fracture (9) Depression Depression Type: unspecified Qualified Code(s): F32.9 - Major depressive disorder, single episode, unspecified
[2023-01-03 04:45] LABS: Basophils # (auto) 0.03 K/uL (0-0.2); Basophils % (auto) 0.4 %; Eosinophils # (auto) 0.03 K/uL (0-0.50); Eosinophils % (auto) 0.4 %; Hemoglobin 10.6 g/dl (12.0-16.0); Immature Granulocytes # (auto) 0.05 K/uL (0.01-0.20); Immature Granulocytes % (auto) 0.7 %; Lymphocytes # (auto) 1.38 K/uL (1.2-3.4); Lymphocytes % (auto) 18.6 %; Mean Corpuscular Hemoglobin 30.1 pg (25.0-34.0); Mean Corpuscular Hgb Conc 32.1 g/dL (32.0-36.0); Mean Corpuscular Volume 93.8 fL (80.0-100.0); Mean Platelet Volume 9.9 fL (9.4-12.4); Monocytes # (auto) 1.28 K/uL (0.11-0.59); Monocytes % (auto) 17.3 %; Neutrophils # (auto) 4.65 K/uL (1.40-6.50); Neutrophils % (auto) 62.6 %; Platelet Count 338 K/uL (130-400); RDW Coefficient of Variation 26.1 % (11.5-14.5); RDW Standard Deviation 88.7 fL (36.4-46.3); Red Blood Count 3.52 M/uL (4.20-5.40); White Blood Count 7.42 K/ul (4.8-10.8)
[2023-01-03 04:58] LABS: Alanine Aminotransferase 28 U/L (7-52); Albumin Globulin Ratio 1.2 (0.9-2); Albumin Level 3.3 gm/dl (3.4-5.0); Alkaline Phosphatase 64 U/L (34-104); Anion Gap 7 (3-11); Aspartate Aminotransferase 22 U/L (13-39); BUN Creatinine Ratio 46.9 (10-20); Bilirubin,Total 0.3 mg/dl (0.2-1.0); Blood Urea Nitrogen 15 mg/dl (6-23); Calcium 8.9 mg/dl (8.6-10.3); Carbon Dioxide 27 mmol/L (21-32); Chloride 98 mmol/L (98-107); Est GFR (African American) 131.6 ml/min; Est GFR (Non-African American) 113.6 ml/min; Globulin 2.8 gm/dl (2.5-4.0); Glucose 86 mg/dl (70-99(Fasting)); Potassium 3.8 mmol/L (3.5-5.1); Sodium 132 mmol/L (136-145); Total Protein 6.1 gm/dl (6.0-8.3)
[2023-01-03 05:03] LABS: Anisocytosis Present
[2023-01-03 05:07] LABS: Prothrombin Time 11.4 Seconds (9.0-12.0)
--- NOTE | 2023-01-03 05:25 | Billing Data ---
Date of Service January 03, 2023 Coding Level of Care Code 01070 INT INP/OBS CARE
[2023-01-03] MEDS: MULTIVITAMIN TAB PO SCH (08:34)
[2023-01-03] MEDS: THIAMINE HCL 100 MG TAB PO SCH (08:34)
[2023-01-03] MEDS: FOLIC ACID 400 MCG TAB PO SCH (08:34)
[2023-01-03] MEDS: ATORVASTATIN 20 MG TAB PO SCH (08:36)
[2023-01-03] MEDS: FERROUS SULFATE 325 MG TAB PO SCH (08:36)
[2023-01-03] MEDS: PANTOprazole 40 MG TAB PO SCH ×2 (08:36→20:04)
[2023-01-03] MEDS: CITALOPRAM 40 MG TAB PO SCH (08:36)
[2023-01-03] MEDS: SENNA 8.6 MG TAB PO SCH (08:37)
[2023-01-03] MEDS: POLYETHYLENE (MIRALAX) 17 GM PACK PO SCH ×3 (08:37→20:04)
--- NOTE | 2023-01-03 08:40 | XRay Report ---
KUB HISTORY: Acute generalized abdominal pain with reported constipation constipation COMPARISON: CT 12/21/2022 FINDINGS: Mild gaseous distention of the large bowel. An obstructive bowel gas pattern. Moderate feca l retention in the left hemicolon. Decreased volume compared to the prior study. No renal calculi. N o ureteral calculi. No pneumoperitoneum or pneumatosis. Lumbar levoscoliosis. Degenerative changes of the spine, pelvis and hips. No fracture. IMPRESSION: 1. Nonobstructive bowel gas pattern. 2. Moderate fecal retention of the rectum and left hemicolon. There is decreased overall stool volume compared to the study from 12/21/2022. ACT 112: Negative or not required by law. The above report was generated using voice recognition software. It may contain grammatical, syntax o r spelling errors. Electronically signed by: Jason Sanchez M.D. 01/03/2023 8:39 AM
--- NOTE | 2023-01-03 09:26 | Hospitalist Progress Note ---
Date of Service January 03, 2023 Assessment & Plan (1) Cervical spinal stenosis: Plan: Patient is a 72-year-old female with past medical history of generalized weakness, chronic malnutrition, anemia, sacroiliitis, scoliosis, hyperlipidemia, osteoporosis, acid reflux, glaucoma, and polycythemia vera who presents to the hospital via direct admission from [facility]. Patient was transferred to [facility] on 12/22/2022 for the need of neurosurgical consult due to severe/critical central canal narrowing in the C3-C5 levels. So far, patient has had no surgical intervention which has been deferred to outpatient. She is currently [facility] floor and is hemodynamically stable. Cervical spinal stenosis: -Initially admitted for L sided weakness and paraesthesia on 12/21. MRI at that time w/ C4-C5 canal stenosis and flattening of cord as well as concern for cord edema. -Transferred to [facility] on 12/22 for neurosurgery eval. -Neurosurgery feels that the patient would not survive the surgery due to severe malnutrition, anemia and osteoporosis. Feels that they would do more harm than good by proceeding with surgery. -Given not a safe candidate for surgical intervention per [facility] neurosurgery, defer intervention to outpatient with a focus on improving nutrition status and physical therapy. -Ortho spine not available in hospital at this time. -PT/OT consulted. OT recommend rehab at this time. -C-Collar attempted at [facility], however patient reports made pain worse. -Tylenol scheduled, oxycodone q4h PRN for pain. -Case management following, patient requested referral to [facility]. Anemia: -Hemoglobin currently at 10.6 status post [facility] interventions -Secondary to poor nutrition, iron deficiency, and recent upper GI bleed -Typed and screened, still needs but consented if bleeding were to return. -Continue iron supplementation -AM CBC. UGI bleed: -Seems to be resolved given elevation of Hgb to 10.6 on admission -Serial CBC monitoring -Continue BID PPI Iron deficiency: -Patient is status post Venofer infusions x3 while at [facility] -Continue oral iron supplementation Chronic Malnutrition: -Dietitian consulted, appreciate recommendations -Consider GI consult for PEG tube if patient is willing -Boost shakes Hyperlipidemia: -Continue atorvastatin 20 mg daily Acid reflux: -Twice daily PPI as above Osteoporosis: -Does not appear to be on any bisphosphonate therapy or vitamin D Depression: -Continue citalopram. Diet: Regular, heart healthy with easy to chew consistency DVT prophylaxis: None until GI bleed seen as stabilized, SCDs Disposition: Admit to [facility], referral to rehab with case management following. CODE STATUS: Full code per discussion with patient (2) Anemia: (3) UGIB (upper gastrointestinal bleed): (4) Iron deficiency: (5) Chronic malnutrition: (6) Hyperlipidemia: (7) Acid reflux disease: (8) Osteoporosis: (9) Depression: Admission and Anticipated Discharge Date Admission Date: January 03, 2023 Supervising Physician Co-Signing Physician Notes ATTESTATION I also saw the patient and confirmed benson portions of the history and exam. I agree with the impression and plan in the resident documentation, and as summarized below. The patient is seen twice; once this morning for short visit when she was working with PT; a second time this afternoon when her sister (HONG) was also at bedside. Patient was received yesterday in a direct transfer from [facility]; she had previously been transferred from here to there on 12/22/2022 for emergent neurosurgical consultation due to severe/critical central canal narrowing at C3-C5. Ultimately, the patient did not undergo surgery on the cervical stenosis/he was thought to be too great of a surgical risk. A work-up for anemia demonstrated nonbleeding peptic ulcer disease. She was also transfused and given IV iron x3 doses. She was returned in transfer yesterday back to [facility] for continued management. EXAM 108/67, 74, 16, 36.8, 94% on room air She is alert and oriented. No acute distress. She complains of neck and left shoulder pain. She has decreased use of her left upper extremity HEENT generally unremarkable. Mucous membranes are pink and moist Heart is regular rate and rhythm, auscultated rate 68 Lungs are clear with nonlabored respirations DATA Labs Hemoglobin 10.6, platelet count 338 Sodium 132, potassium 3.8, BUN 15, creatinine 0.32 Imaging A KUB taken earlier this morning shows a nonobstructive gas pattern, moderate fecal retention of the rectum and descending hemicolon. IMPRESSION & PLAN Cervical spine stenosis PT/OT evaluations Pain control Anemia Nonbleeding peptic ulcer disease Status post Venofer x3; started on oral iron thereafter PPI twice daily x8 weeks Recommendation for repeat EGD and colonoscopy in 8 weeks (Colonoscopy attempted at [facility] but unsuccessful secondary to poor prep/fecal burden) Severe protein calorie chronic malnutrition Consult nutrition PEG tube was actually discussed while she was at [facility]; however deferred given peptic ulcer disease Urinary retention Failed a voiding trial prior to discharge from [facility] and transfer here Ramires present upon arrival Constipation Improved Continue bowel regimen Additional per resident documentation Subjective Patient seen at bedside this today stating that her pain is still the same as when she first came into the hospital but a little better controlled today. Eating as much as she can with the decreased strength in her arms. Review of Systems Review of Systems: As per HPI. Physical Exam Constitutional: + thin and + cachectic Eyes: PERRL, conjunctivae normal, anicteric sclerae Respiratory: normal respiratory effort, lungs clear to auscultation Cardiovascular: RRR, no murmur, no edema Gastrointestinal (Abdomen): non-tender, non-distended, soft. Musculoskeletal: visible struggle with lifting left arm, needing to carry with R arm. Psychiatric: A+Ox3, euthymic affect Results & Data Results & Data Vital Signs (Past 12 Hours) Vital Signs Temp Pulse Resp BP Pulse Ox O2 Del Method 01/03/23 07:42 36.8 C 74 16 108/67 94 Room Air 01/03/23 03:51 36.9 C 78 18 133/80 93 Room Air Resident Activity Tracking Resident Involvement: Resident Care Provided Care Provided: Adult Hospital Medicine (7) Acid reflux disease Esophagitis presence: without esophagitis Qualified Code(s): K21.9 - Gastro- esophageal reflux disease without esophagitis (8) Osteoporosis Osteoporosis type: age-related Presence of current pathological fracture: without current pathological fracture Qualified Code(s): M81.0 - Age-related osteoporosis without current pathological fracture (9) Depression Depression Type: unspecified Qualified Code(s): F32.9 - Major depressive disorder, single episode, unspecified
[2023-01-03] MEDS: ACETAMINOPHEN 325 MG TAB PO SCH ×2 (13:07→21:54)
[2023-01-03] MEDS ORDERED: MoRPHine SULFATE 2 MG/ML CARP IV STA (13:11)
[2023-01-03] MEDS: MoRPHine SULFATE 2 MG/ML CARP IV PRN (20:05)
[2023-01-03] MEDS: LATANOPROST 0.005% OP SOLN 2.5 ML BTL OP SCH (20:05)
[2023-01-04] MEDS: oxyCODONE HCL IR 5 MG TAB (IMMEDIATE RELEASE) PO PRN ×3 (02:24→19:40)
[2023-01-04] MEDS: ACETAMINOPHEN 325 MG TAB PO SCH ×3 (05:56→20:45)
--- NOTE | 2023-01-04 07:35 | Hospitalist Progress Note ---
Date of Service January 04, 2023 Assessment & Plan (1) Cervical spinal stenosis: Plan: Patient is a 72-year-old female with past medical history of generalized weakness, chronic malnutrition, anemia, sacroiliitis, scoliosis, hyperlipidemia, osteoporosis, acid reflux, glaucoma, and polycythemia vera who presents to the hospital via direct admission from [facility]. Patient was transferred to [facility] on 12/22/2022 for the need of neurosurgical consult due to severe/critical central canal narrowing in the C3-C5 levels. So far, patient has had no surgical intervention which has been deferred to outpatient. She is currently admitted to the [facility] surgical floor and is hemodynamically stable. Cervical spinal stenosis: -Initially admitted for L sided weakness and paraesthesia on 12/21. MRI at that time w/ C4-C5 canal stenosis and flattening of cord as well as concern for cord edema. -Transferred to [facility] on 12/22 for neurosurgery eval. -Neurosurgery feels that the patient would not survive the surgery due to severe malnutrition, anemia and osteoporosis. Feels that they would do more harm than good by proceeding with surgery. -Given not a safe candidate for surgical intervention per [facility] neurosurgery, defer intervention to outpatient with a focus on improving nutrition status and physical therapy. -Ortho spine not available in hospital at this time. -PT/OT consulted. OT recommend rehab at this time. -C-Collar attempted at [facility], however patient reports made pain worse. -Tylenol scheduled, oxycodone q4h PRN for pain. -Case management following, patient requested referral to rehab facility ([facility] was denied by insurance). Anemia: -Hemoglobin currently at 10.6 status post [facility] interventions -Secondary to poor nutrition, iron deficiency, and recent upper GI bleed -Typed and screened, still needs but consented if bleeding were to return. -Continue iron supplementation -AM CBC. UGI bleed: -Seems to be resolved given elevation of Hgb to 10.6 on admission -Serial CBC monitoring -Continue BID PPI Iron deficiency: -Patient is status post Venofer infusions x3 while at [facility] -Continue oral iron supplementation Chronic Malnutrition: -Dietitian consulted, appreciate recommendations -Patient eating well with selected foods she is able to eat easily with her strength deficits. -Will bump chocolate boost to 2 drinks per meal at request of patient. Hyperlipidemia: -Continue atorvastatin 20 mg daily Acid reflux: -Twice daily PPI as above Osteoporosis: -Does not appear to be on any bisphosphonate therapy or vitamin D Depression: -Continue citalopram. Diet: Regular, heart healthy with easy to chew consistency DVT prophylaxis: None until GI bleed seen as stabilized, SCDs Code status: Full code Disposition: Admit to [facility], referral to rehab with case management following. (2) Anemia: (3) UGIB (upper gastrointestinal bleed): (4) Iron deficiency: (5) Chronic malnutrition: (6) Hyperlipidemia: (7) Acid reflux disease: (8) Osteoporosis: (9) Depression: Admission and Anticipated Discharge Date Admission Date: January 03, 2023 Supervising Physician Co-Signing Physician Notes ATTESTATION I also saw the patient and confirmed benson portions of the history and exam. I agree with the impression and plan in the resident documentation, and as summarized below. Upon exam this morning, the patient is reading a book well semireclined in bed. She complains of continued neck pain, left shoulder pain, and decreased use of her left upper extremity Her appetite seems a little bit better, she reports eating a full breakfast, and requests additional can of boost. EXAM 118/79, 71, 16, 36.8, 94% on room air Heart is regular rate and rhythm Lungs are clear with nonlabored respirations DATA Labs Hemoglobin 9.9, platelet count 331 Sodium 135, potassium 4.3, BUN 12, creatinine 0.33 IMPRESSION & PLAN Cervical spine stenosis PT/OT evaluations completed and appreciated Case management working for possible placement Anemia Nonbleeding peptic ulcer disease Status post Venofer x3; started on oral iron thereafter PPI twice daily x8 weeks Recommendation for repeat EGD and colonoscopy in 8 weeks (Colonoscopy attempted at [facility] but unsuccessful secondary to poor prep/fecal burden) Severe protein calorie chronic malnutrition Nutrition consult appreciated Her appetite has proved for the last couple of days, and this is encouraging Reviewed her outpatient records to see if a etiology of her low BMI was ever d iscovered -no clearance was found It is noted that a PEG tube was actually discussed while she was at [facility]; however deferred given peptic ulcer disease Urinary retention Failed a voiding trial prior to discharge from [facility] and transfer here Ramires present upon arrival Constipation Improved Continue bowel regimen Additional per resident documentation Subjective Patient seen at the bedside this morning stating that she was able to eat a really good breakfast and almost everything on her tray. She also stated that she would drink 2 chocolate boosts if she gets them with her meals since she likes them a lot. Right now she is getting one chocolate boost per meal. Review of Systems Review of Systems: As per HPI. Physical Exam Constitutional: + thin and + cachectic Eyes: PERRL, conjunctivae normal, anicteric sclerae Respiratory: normal respiratory effort, lungs clear to auscultation Cardiovascular: RRR, no murmur, no edema Psychiatric: A+Ox3, euthymic affect Results & Data Results & Data Vital Signs (Past 12 Hours) Vital Signs Temp Pulse Resp BP Pulse Ox O2 Del Method 01/03/23 21:11 37 C 75 18 120/74 90 Room Air Resident Activity Tracking Resident Involvement: Resident Care Provided Care Provided: Adult Hospital Medicine (7) Acid reflux disease Esophagitis presence: without esophagitis Qualified Code(s): K21.9 - Gastro- esophageal reflux disease without esophagitis (8) Osteoporosis Osteoporosis type: age-related Presence of current pathological fracture: without current pathological fracture Qualified Code(s): M81.0 - Age-related osteoporosis without current pathological fracture (9) Depression Depression Type: unspecified Qualified Code(s): F32.9 - Major depressive disorder, single episode, unspecified
[2023-01-04 08:02] LABS: Hematocrit (blood only) 30.9 % (37.0-47.0); Hemoglobin 9.9 g/dl (12.0-16.0); Mean Corpuscular Hemoglobin 29.4 pg (25.0-34.0); Mean Corpuscular Volume 91.7 fL (80.0-100.0); Mean Platelet Volume 10.1 fL (9.4-12.4); Platelet Count 331 K/uL (130-400); RDW Coefficient of Variation 25.4 % (11.5-14.5); RDW Standard Deviation 84.5 fL (36.4-46.3); Red Blood Count 3.37 M/uL (4.20-5.40); White Blood Count 6.29 K/ul (4.8-10.8)
[2023-01-04 08:19] LABS: BUN Creatinine Ratio 36.4 (10-20); Calcium 8.6 mg/dl (8.6-10.3); Creatinine Clr Calc Pharmacy 97.7 ml/min; Est GFR (African American) 130.3 ml/min; Est GFR (Non-African American) 112.4 ml/min; Potassium 4.3 mmol/L (3.5-5.1)
[2023-01-04] MEDS: CITALOPRAM 40 MG TAB PO SCH (08:26)
[2023-01-04] MEDS: PANTOprazole 40 MG TAB PO SCH ×2 (08:26→20:43)
[2023-01-04] MEDS: MULTIVITAMIN TAB PO SCH (08:26)
[2023-01-04] MEDS: ATORVASTATIN 20 MG TAB PO SCH (08:26)
[2023-01-04] MEDS: FERROUS SULFATE 325 MG TAB PO SCH (08:26)
[2023-01-04] MEDS: THIAMINE HCL 100 MG TAB PO SCH (08:26)
[2023-01-04] MEDS: POLYETHYLENE (MIRALAX) 17 GM PACK PO SCH ×3 (08:26→20:43)
[2023-01-04] MEDS: SENNA 8.6 MG TAB PO SCH (08:26)
[2023-01-04] MEDS: FOLIC ACID 400 MCG TAB PO SCH (08:27)
[2023-01-04] MEDS: MoRPHine SULFATE 2 MG/ML CARP IV PRN ×3 (08:37→18:35)
[2023-01-04] MEDS: LATANOPROST 0.005% OP SOLN 2.5 ML BTL OP SCH (20:43)
[2023-01-05] MEDS: oxyCODONE HCL IR 5 MG TAB (IMMEDIATE RELEASE) PO PRN ×5 (00:50→22:15)
[2023-01-05] MEDS: ACETAMINOPHEN 325 MG TAB PO SCH ×3 (05:15→21:29)
[2023-01-05 07:08] LABS: Hematocrit (blood only) 33.4 % (37.0-47.0); Hemoglobin 10.5 g/dl (12.0-16.0); Mean Corpuscular Hemoglobin 29.7 pg (25.0-34.0); Mean Corpuscular Hgb Conc 31.4 g/dL (32.0-36.0); Mean Corpuscular Volume 94.4 fL (80.0-100.0); Platelet Count 352 K/uL (130-400); RDW Coefficient of Variation 24.8 % (11.5-14.5); RDW Standard Deviation 85.3 fL (36.4-46.3); Red Blood Count 3.54 M/uL (4.20-5.40); White Blood Count 5.09 K/ul (4.8-10.8)
[2023-01-05 07:24] LABS: BUN Creatinine Ratio 53.3 (10-20); Calcium 8.7 mg/dl (8.6-10.3); Creatinine Clr Calc Pharmacy 107.4 ml/min; Est GFR (African American) 134.5 ml/min; Potassium 4.3 mmol/L (3.5-5.1)
--- NOTE | 2023-01-05 07:26 | Hospitalist Progress Note ---
Date of Service January 05, 2023 Assessment & Plan (1) Cervical spinal stenosis: Plan: Patient is a 72-year-old female with past medical history of generalized weakness, chronic malnutrition, anemia, sacroiliitis, scoliosis, hyperlipidemia, osteoporosis, acid reflux, glaucoma, and polycythemia vera who presents to the hospital via direct admission from [facility]. Patient was transferred to [facility] on 12/22/2022 for the need of neurosurgical consult due to severe/critical central canal narrowing in the C3-C5 levels. So far, patient has had no surgical intervention which has been deferred to outpatient. She is currently admitted to the [facility] surgical floor and is hemodynamically stable. Cervical spinal stenosis: -Initially admitted for L sided weakness and paraesthesia on 12/21. MRI at that time w/ C4-C5 canal stenosis and flattening of cord as well as concern for cord edema. -Transferred to [facility] on 12/22 for neurosurgery eval. -Neurosurgery feels that the patient would not survive the surgery due to severe malnutrition, anemia and osteoporosis. Feels that they would do more harm than good by proceeding with surgery. -Given not a safe candidate for surgical intervention per [facility] neurosurgery, defer intervention to outpatient with a focus on improving nutrition status and physical therapy. -Ortho spine not available in hospital at this time. -PT/OT consulted. OT recommend rehab at this time. -C-Collar attempted at [facility], however patient reports made pain worse. -Tylenol scheduled, oxycodone q4h PRN for pain. -Case management following, patient requested referral to rehab facility ([facility] was denied by insurance). Anemia: -Hemoglobin currently at 10.6 status post [facility] interventions -Secondary to poor nutrition, iron deficiency, and recent upper GI bleed -Typed and screened, still needs but consented if bleeding were to return. -Continue iron supplementation -AM CBC. UGI bleed: -Seems to be resolved given elevation of Hgb to 10.6 on admission -Serial CBC monitoring -Continue BID PPI Iron deficiency: -Patient is status post Venofer infusions x3 while at [facility] -Continue oral iron supplementation Chronic Malnutrition: -Dietitian consulted, appreciate recommendations -Patient eating well with selected foods she is able to eat easily with her strength deficits. -Will bump chocolate boost to 2 drinks per meal at request of patient. Hyperlipidemia: -Continue atorvastatin 20 mg daily Acid reflux: -Twice daily PPI as above Osteoporosis: -Does not appear to be on any bisphosphonate therapy or vitamin D Depression: -Continue citalopram. Diet: Regular, heart healthy with easy to chew consistency DVT prophylaxis: None until GI bleed seen as stabilized, SCDs Code status: Full code Disposition: Admit to [facility], referral to rehab with case management following. (2) Anemia: (3) UGIB (upper gastrointestinal bleed): (4) Iron deficiency: (5) Chronic malnutrition: (6) Hyperlipidemia: (7) Acid reflux disease: (8) Osteoporosis: (9) Depression: Admission and Anticipated Discharge Date Admission Date: January 03, 2023 Supervising Physician Co-Signing Physician Notes Attending attestation Pt seen and examined in concert with Dr. Hurd. In agreement with the documented findings as noted in the resident documentation with any exceptions or additions as noted here. Pain not presently well controlled on oxycodone 5mg regimen which is normally effective without inciting event - patient reports her pain waxes and wanes like this at times. Also c/o lower back discomfort because she is unable to change positions. On examination, S1/S2 nl RRR no MCG. CTAB. Abd NT/ND BS+ve Cervical stenosis - add 2.5mg oxycodone x 1 and evaluate if pain control adequate and consider increase in baseline regimen, encourage use of IV PRN morphine - PT/OT consult Lower back pain - patient defers assessment at present in favor of improved pain control, notify nursing regarding lower back for evaluation of pressure injury Severe protein calorie malnutrition - nutrition consult - doing well with POI and supplementation, encourage Else see resident documentation as noted. Subjective Patient seen and evaluated at bedside this morning. Patient feels "okay" today, complaining only of low back pain. Patient denies CP, SOB, abdominal pain, nausea, vomiting, lightheadedness, dizziness, and diarrhea. Review of Systems Review of Systems: See HPI Physical Exam Physical Exam: Constitutional: well-appearing, no acute distress HEENT: NCAT, no conjunctival injection CV: regular rhythm, no murmur appreciated, extremities well-perfused, no LE edema Resp: CTABL, no wheezes/rales/rhonchi appreciated, no increased work of breathing Neuro: alert, oriented, no focal neurologic deficit appreciated Results & Data Results & Data Vital Signs (Past 12 Hours) Vital Signs Temp Pulse Resp BP Pulse Ox O2 Del Method 01/04/23 21:55 36.5 C 73 18 126/74 93 Room Air Resident Activity Tracking Resident Involvement: Resident Care Provided Care Provided: Adult Hospital Medicine (7) Acid reflux disease Esophagitis presence: without esophagitis Qualified Code(s): K21.9 - Gastro- esophageal reflux disease without esophagitis (8) Osteoporosis Osteoporosis type: age-related Presence of current pathological fracture: without current pathological fracture Qualified Code(s): M81.0 - Age-related osteoporosis without current pathological fracture (9) Depression Depression Type: unspecified Qualified Code(s): F32.9 - Major depressive disorder, single episode, unspecified
[2023-01-05] MEDS: MoRPHine SULFATE 2 MG/ML CARP IV PRN ×3 (07:34→17:50)
[2023-01-05] MEDS: SENNA 8.6 MG TAB PO SCH (10:23)
[2023-01-05] MEDS: FOLIC ACID 400 MCG TAB PO SCH (10:23)
[2023-01-05] MEDS: POLYETHYLENE (MIRALAX) 17 GM PACK PO SCH ×3 (10:23→19:23)
[2023-01-05] MEDS: THIAMINE HCL 100 MG TAB PO SCH (10:23)
[2023-01-05] MEDS: CITALOPRAM 40 MG TAB PO SCH (10:23)
[2023-01-05] MEDS: FERROUS SULFATE 325 MG TAB PO SCH (10:23)
[2023-01-05] MEDS: ATORVASTATIN 20 MG TAB PO SCH (10:23)
[2023-01-05] MEDS: MULTIVITAMIN TAB PO SCH (10:23)
[2023-01-05] MEDS: PANTOprazole 40 MG TAB PO SCH ×2 (10:23→19:22)
[2023-01-05] MEDS ORDERED: oxyCODONE HCL IR 5 MG TAB (IMMEDIATE RELEASE) PO STA (14:34)
[2023-01-05] MEDS: LATANOPROST 0.005% OP SOLN 2.5 ML BTL OP SCH (19:22)
[2023-01-06] MEDS: MoRPHine SULFATE 2 MG/ML CARP IV PRN ×4 (01:17→16:53)
[2023-01-06] MEDS: oxyCODONE HCL IR 5 MG TAB (IMMEDIATE RELEASE) PO PRN ×3 (03:06→19:57)
[2023-01-06] MEDS: ACETAMINOPHEN 325 MG TAB PO SCH (05:16)
[2023-01-06 06:21] LABS: Hematocrit (blood only) 33.8 % (37.0-47.0); Hemoglobin 10.8 g/dl (12.0-16.0); Mean Corpuscular Hemoglobin 29.6 pg (25.0-34.0); Mean Corpuscular Volume 92.6 fL (80.0-100.0); Platelet Count 376 K/uL (130-400); RDW Coefficient of Variation 24.4 % (11.5-14.5); RDW Standard Deviation 82.4 fL (36.4-46.3); Red Blood Count 3.65 M/uL (4.20-5.40); White Blood Count 5.07 K/ul (4.8-10.8)
[2023-01-06 06:37] LABS: BUN Creatinine Ratio 58.1 (10-20); Calcium 9.1 mg/dl (8.6-10.3); Est GFR (Non-African American) 114.8 ml/min; Potassium 3.9 mmol/L (3.5-5.1)
--- NOTE | 2023-01-06 07:57 | Hospitalist Progress Note ---
Date of Service January 06, 2023 Assessment & Plan (1) Cervical spinal stenosis: Plan: Patient is a 72-year-old female with past medical history of generalized weakness, chronic malnutrition, anemia, sacroiliitis, scoliosis, hyperlipidemia, osteoporosis, acid reflux, glaucoma, and polycythemia vera who presents to the hospital via direct admission from [facility]. Patient was transferred to [facility] on 12/22/2022 for the need of neurosurgical consult due to severe/critical central canal narrowing in the C3-C5 levels. So far, patient has had no surgical intervention which has been deferred to outpatient. She is currently admitted to the [facility] surgical floor and is hemodynamically stable. Cervical spinal stenosis: -Initially admitted for L sided weakness and paraesthesia on 12/21. MRI at that time w/ C4-C5 canal stenosis and flattening of cord as well as concern for cord edema. -Transferred to [facility] on 12/22 for neurosurgery eval. -Neurosurgery feels that the patient would not survive the surgery due to severe malnutrition, anemia and osteoporosis. Feels that they would do more harm than good by proceeding with surgery. -Given not a safe candidate for surgical intervention per [facility] neurosurgery, defer intervention to outpatient with a focus on improving nutrition status and physical therapy. -Ortho spine not available in hospital at this time. -PT/OT consulted. OT recommend rehab at this time. -C-Collar attempted at [facility], however patient reports made pain worse. -Tylenol scheduled, oxycodone q4h PRN for pain -- increased to 1000mg q8h and 7.5mg q4h PRN respectively -Continue morphine 2mg IV q4h PRN as well -Case management following, patient requested referral to rehab facility ([facility] was denied by insurance) -- pending further referrals Anemia: -Hemoglobin currently at 10.6 status post [facility] interventions -Secondary to poor nutrition, iron deficiency, and recent upper GI bleed -Typed and screened, still needs but consented if bleeding were to return. -Continue iron supplementation -AM CBC. UGI bleed: -Seems to be resolved given elevation of Hgb to 10.6 on admission -Serial CBC monitoring -Continue BID PPI Iron deficiency: -Patient is status post Venofer infusions x3 while at [facility] -Continue oral iron supplementation Chronic Malnutrition: -Dietitian consulted, appreciate recommendations -Patient eating well with selected foods she is able to eat easily with her strength deficits. -Will bump chocolate boost to 2 drinks per meal at request of patient. Hyperlipidemia: -Continue atorvastatin 20 mg daily Acid reflux: -Twice daily PPI as above Osteoporosis: -Does not appear to be on any bisphosphonate therapy or vitamin D Depression: -Continue citalopram. Diet: Regular, heart healthy with easy to chew consistency DVT prophylaxis: None until GI bleed seen as stabilized, SCDs Code status: Full code Disposition: Admit to [facility], referral to rehab with case management following. (2) Anemia: (3) UGIB (upper gastrointestinal bleed): (4) Iron deficiency: (5) Chronic malnutrition: (6) Hyperlipidemia: (7) Acid reflux disease: (8) Osteoporosis: (9) Depression: Admission and Anticipated Discharge Date Admission Date: January 03, 2023 Supervising Physician Co-Signing Physician Notes Attending attestation Pt seen and examined in concert with Dr. Johnson. In agreement with the documented findings as noted in the resident documentation with any exceptions or additions as noted here. Pain not presently well controlled on oxycodone 5mg regimen which is normally effective without inciting event - patient reports her pain waxes and wanes like this at times. Also c/o lower back discomfort because she is unable to change positions. On examination, S1/S2 nl RRR no MCG. CTAB. Abd NT/ND BS+ve Cervical stenosis - increase APAP to 1gm q8, increase oxycodone to 7.5mg, encourage use of IV PRN morphine - PT/OT consulted Lower back pain - improved and without significant skin concern with positional changes Severe protein calorie malnutrition - nutrition consult - doing well with POI and supplementation, encourage Else see resident documentation as noted. Subjective Patient seen and evaluated at bedside this morning. Continues to report low back pain -- no neck pain or DORSEY. Patient denies CP, SOB, abdominal pain, nausea, vomiting, lightheadedness, dizziness, and diarrhea. Review of Systems Review of Systems: See HPI Physical Exam Physical Exam: Constitutional: well-appearing, no acute distress HEENT: NCAT, no conjunctival injection CV: regular rhythm, no murmur appreciated, extremities well-perfused, no LE edema Resp: CTABL, no wheezes/rales/rhonchi appreciated, no increased work of breathing Neuro: alert, oriented, no focal neurologic deficit appreciated Results & Data Results & Data Vital Signs (Past 12 Hours) Vital Signs Temp Pulse Resp BP Pulse Ox O2 Del Method 01/06/23 07:30 36.9 C 70 16 131/84 95 Room Air Resident Activity Tracking Resident Involvement: Resident Care Provided Care Provided: Adult [facility] Medicine (7) Acid reflux disease Esophagitis presence: without esophagitis Qualified Code(s): K21.9 - Gastro- esophageal reflux disease without esophagitis (8) Osteoporosis Osteoporosis type: age-related Presence of current pathological fracture: without current pathological fracture Qualified Code(s): M81.0 - Age-related osteoporosis without current pathological fracture (9) Depression Depression Type: unspecified Qualified Code(s): F32.9 - Major depressive di sorder, single episode, unspecified
[2023-01-06] MEDS: PANTOprazole 40 MG TAB PO SCH ×2 (08:38→19:53)
[2023-01-06] MEDS: FERROUS SULFATE 325 MG TAB PO SCH (08:38)
[2023-01-06] MEDS: CITALOPRAM 40 MG TAB PO SCH (08:38)
[2023-01-06] MEDS: FOLIC ACID 400 MCG TAB PO SCH (08:38)
[2023-01-06] MEDS: MULTIVITAMIN TAB PO SCH (08:38)
[2023-01-06] MEDS: SENNA 8.6 MG TAB PO SCH (08:38)
[2023-01-06] MEDS: ATORVASTATIN 20 MG TAB PO SCH (08:38)
[2023-01-06] MEDS: THIAMINE HCL 100 MG TAB PO SCH (08:39)
[2023-01-06] MEDS: POLYETHYLENE (MIRALAX) 17 GM PACK PO SCH ×3 (08:39→19:53)
[2023-01-06] MEDS: ACETAMINOPHEN 500 MG TAB PO SCH ×2 (12:02→19:52)
[2023-01-06] MEDS: LATANOPROST 0.005% OP SOLN 2.5 ML BTL OP SCH (19:53)
[2023-01-07] MEDS: MoRPHine SULFATE 2 MG/ML CARP IV PRN ×2 (02:53→07:38)
[2023-01-07] MEDS: ACETAMINOPHEN 500 MG TAB PO SCH ×3 (02:54→19:49)
[2023-01-07 06:20] LABS: Basophils # (auto) 0.07 K/uL (0-0.2); Basophils % (auto) 1.5 %; Eosinophils % (auto) 2.1 %; Hematocrit (blood only) 33.8 % (37.0-47.0); Hemoglobin 10.6 g/dl (12.0-16.0); Immature Granulocytes # (auto) 0.03 K/uL (0.01-0.20); Immature Granulocytes % (auto) 0.6 %; Lymphocytes # (auto) 1.25 K/uL (1.2-3.4); Lymphocytes % (auto) 26.2 %; Mean Corpuscular Hemoglobin 29.4 pg (25.0-34.0); Mean Corpuscular Hgb Conc 31.4 g/dL (32.0-36.0); Mean Corpuscular Volume 93.9 fL (80.0-100.0); Mean Platelet Volume 9.9 fL (9.4-12.4); Monocytes # (auto) 0.75 K/uL (0.11-0.59); Monocytes % (auto) 15.7 %; Neutrophils # (auto) 2.58 K/uL (1.40-6.50); Neutrophils % (auto) 53.9 %; Platelet Count 392 K/uL (130-400); RDW Coefficient of Variation 24.2 % (11.5-14.5); RDW Standard Deviation 82.4 fL (36.4-46.3); White Blood Count 4.78 K/ul (4.8-10.8)
[2023-01-07 06:36] LABS: BUN Creatinine Ratio 45.5 (10-20); Calcium 9.2 mg/dl (8.6-10.3); Creatinine Clr Calc Pharmacy 97.7 ml/min; Est GFR (African American) 130.3 ml/min; Est GFR (Non-African American) 112.4 ml/min
[2023-01-07 06:45] LABS: Anisocytosis Present; Polychromasia 1+; Target Cells 1+
[2023-01-07] MEDS: PANTOprazole 40 MG TAB PO SCH ×2 (08:37→19:50)
[2023-01-07] MEDS: MULTIVITAMIN TAB PO SCH (08:37)
[2023-01-07] MEDS: ATORVASTATIN 20 MG TAB PO SCH (08:37)
[2023-01-07] MEDS: FERROUS SULFATE 325 MG TAB PO SCH (08:37)
[2023-01-07] MEDS: THIAMINE HCL 100 MG TAB PO SCH (08:37)
[2023-01-07] MEDS: CITALOPRAM 40 MG TAB PO SCH (08:37)
[2023-01-07] MEDS: FOLIC ACID 400 MCG TAB PO SCH (08:37)
[2023-01-07] MEDS: POLYETHYLENE (MIRALAX) 17 GM PACK PO SCH ×3 (08:38→19:50)
[2023-01-07] MEDS: SENNA 8.6 MG TAB PO SCH (08:38)
--- NOTE | 2023-01-07 10:29 | Hospitalist Progress Note ---
Date of Service January 07, 2023 Assessment & Plan (1) Cervical spinal stenosis: Plan: 72-year-old female with past medical history of generalized weakness, chronic malnutrition, anemia, sacroiliitis, scoliosis, hyperlipidemia, osteoporosis, acid reflux, glaucoma, and polycythemia vera who presents to the hospital via direct admission from [facility] (after transfer from [facility] on 12/22 for neurosurg consult for C3-C5 critical narrowing) as she temporarily is not a surgical candidate secondary to comorbidities. Cervical spinal stenosis -Initially admitted to [facility] for L sided weakness and paraesthesia on 12/21. MRI at that time w/ C4-C5 canal stenosis and flattening of cord as well as concern for cord edema. -Transferred to [facility] on 12/22 for neurosurgery eval. Not a candidate temporarily because of anemia and EGD showing multiple nonbleeding ulcers. Has outpatient heme and GI followups (for upper and lower endoscopies) -Can consider repeat neurosurg eval as outpatient when better conditioned and the above addressed -Tylenol scheduled. oxycodone 7.5mg q4h PRN to be changed to scheduled -Morphine 2mg IV q4h PRN discontinued Anemia -Hb stable in the 10s this admission. While admitted to [facility], had recievd IV Venofer x3 and prbc x1u UGI bleed: -Seems to be resolved given elevation of Hgb to 10.6 on admission -Serial CBC monitoring -Continue BID PPI Iron deficiency: -Patient is status post Venofer infusions x3 while at [facility] -Continue oral iron supplementation Chronic Malnutrition: -Dietitian consulted, appreciate recommendations Hyperlipidemia: -Continue atorvastatin 20 mg daily Acid reflux: -Twice daily PPI as above Osteoporosis: -Does not appear to be on any bisphosphonate therapy or vitamin D Depression: -Continue citalopram. Diet: Regular DVT prophylaxis: Will restart SQ heparin Code status: Full code Disposition: Admit to med surg, pending placement (2) Anemia: (3) UGIB (upper gastrointestinal bleed): (4) Iron deficiency: (5) Chronic malnutrition: (6) Hyperlipidemia: (7) Acid reflux disease: (8) Osteoporosis: (9) Depression: Admission and Anticipated Discharge Date Admission Date: January 03, 2023 Supervising Physician Co-Signing Physician Notes Attending attestation Pt seen and examined in concert with Dr. Jack. In agreement with the documented findings as noted in the resident documentation with any exceptions or additions as noted here. Subjectively, pain decreased from 10 to 9. By my observation, significantly improved tracking and willingness to move at the neck today compared to previous. Was able to put make up on. Overnight, took only PRN morphine and not PRN PO. On examination, S1/S2 nl RRR no MCG. CTAB. Abd NT/ND BS+ve Cervical stenosis - change 7.5mg oxycodone to standing q6h. Continue APAP. Discourage use of PRN morphine for other than breakthrough. Looking forward to rehab once pain controlled w/o IV meds. PT /OT consulted Severe protein calorie malnutrition - nutrition consult - nutrition consult - encourage continued healthy intake Else see resident documentation as noted. Subjective Pain at back of neck and L shoulder. Numb at L fingers. Pain is chronicically at 10/10. Denies other ROS. Waiting for rehab placement. Review of Systems Review of Systems: All systems reviewed & are unremarkable except as noted in HPI & below Physical Exam Physical Exam: General: Grossly A&O. NAD. Cooperative. HEENT: Atraumatic, normocephalic. Pulm: CTAB. -wheezes, -rales, -rhonchi. No accessory muscle us. Cardiac: RRR, -mrg. No LE edema. Abdominal: Nontender, nondistended, soft. Neuro: Sensation to light touch of L dorsal hand intact. Results & Data Results & Data Vital Signs (Past 12 Hours) Vital Signs Temp Pulse Resp BP Pulse Ox O2 Del Method 01/07/23 07:20 36.8 C 72 16 130/81 94 Room Air Resident Activity Tracking Resident Involvement: Resident Care Provided Care Provided: Adult Hospital Medicine (7) Acid reflux disease Esophagitis presence: without esophagitis Qualified Code(s): K21.9 - Gastro- esophageal reflux disease without esophagitis (8) Osteoporosis Osteoporosis type: age-related Presence of current pathological fracture: without current pathological fracture Qualified Code(s): M81.0 - Age-related osteoporosis without current pathological fracture (9) Depression Depression Type: unspecified Qualified Code(s): F32.9 - Major depressive disorder, single episode, unspecified
[2023-01-07] MEDS: oxyCODONE HCL IR 5 MG TAB (IMMEDIATE RELEASE) PO PRN (12:31)
[2023-01-07] MEDS: oxyCODONE HCL IR 5 MG TAB (IMMEDIATE RELEASE) PO SCH ×2 (17:09→19:50)
[2023-01-07] MEDS: LATANOPROST 0.005% OP SOLN 2.5 ML BTL OP SCH (19:49)
[2023-01-07] MEDS: HEPARIN SOD 5,000 UNIT/0.5 ML VIAL SQ SCH (19:54)
[2023-01-08] MEDS: oxyCODONE HCL IR 5 MG TAB (IMMEDIATE RELEASE) PO SCH ×6 (00:37→19:34)
[2023-01-08] MEDS: ACETAMINOPHEN 500 MG TAB PO SCH ×3 (05:24→19:33)
--- NOTE | 2023-01-08 07:19 | Hospitalist Progress Note ---
Date of Service January 08, 2023 Assessment & Plan (1) Cervical spinal stenosis: Plan: 72-year-old female with past medical history of generalized weakness, chronic malnutrition, anemia, sacroiliitis, scoliosis, hyperlipidemia, osteoporosis, acid reflux, glaucoma, and polycythemia vera who presents to the hospital via direct admission from [facility] (after transfer from [facility] on 12/22 for neurosurg consult for C3-C5 critical narrowing) as she temporarily is not a surgical candidate secondary to comorbidities. Cervical spinal stenosis -Initially admitted to [facility] for L sided weakness and paraesthesia on 12/21. MRI at that time w/ C4-C5 canal stenosis and flattening of cord as well as concern for cord edema. -Transferred to [facility] on 12/22 for neurosurgery eval. Not a candidate temporarily because of anemia and EGD showing multiple nonbleeding ulcers. Has outpatient heme and GI followups (for upper and lower endoscopies) -Can consider repeat neurosurg eval as outpatient when better conditioned and the above addressed -Tylenol scheduled. oxycodone 7.5mg q4h scheduled. Added Voltaren gel. Dr. Pizano performed OMT to neck. -Morphine 2mg IV q4h PRN discontinued Anemia -Hb stable in the 10s this admission. While admitted to [facility], had recieved IV Venofer x3 and prbc x1u UGI bleed: -Seems to be resolved given elevation of Hgb to 10.6 on admission -Serial CBC monitoring -Continue BID PPI Iron deficiency: -Patient is status post Venofer infusions x3 while at [facility] -Continue oral iron supplementation Chronic Malnutrition: -Dietitian consulted, appreciate recommendations Hyperlipidemia: -Continue atorvastatin 20 mg daily Acid reflux: -Twice daily PPI as above Osteoporosis: -Does not appear to be on any bisphosphonate therapy or vitamin D Depression: -Continue citalopram. Diet: Regular DVT prophylaxis: Will restart SQ heparin Code status: Full code Disposition: Admit to med surg, pending placement to rehab (2) Anemia: (3) UGIB (upper gastrointestinal bleed): (4) Iron deficiency: (5) Chronic malnutrition: (6) Hyperlipidemia: (7) Acid reflux disease: (8) Osteoporosis: (9) Depression: Admission and Anticipated Discharge Date Admission Date: January 03, 2023 Supervising Physician Co-Signing Physician Notes I personally examined the patient and verified all benson points of history and exam, discussed case, and agree with decision making with Dr Murphy Neck painpredominantly left-sided. Also arm weakness. Vitals noted, in general she is awake and alert pleasant no distress. HEENT normocephalic atraumatic mucous membranes moist. Breathing unlabored no accessory muscle use good effort. Osteopathic/musculoskeletal shows left-sided cervical paraspinals and left-sided upper thoracic musculature in the region of her levator Scap to be high tone, tender, decreased range of motioninhibitory pressure and direct myofascialpatient tolerated well and noted some improvement. neck pain / cervical spinal stenosis / cervical somatic dysfunctionPT/OT eval and treat, pain control, work on muscular component of this further adding IV magnesium, Valium, Voltaren gel. OMT as above. avoid NSAIDs due to PUD/recent UGI bleed Subjective 01/08: Patient seen and examined at bedside. No overnight events. Patient notes that her pain is still very intense, continues to have some weakness at her left arm. Eating and drinking without issue. Urinating/bowel movements without issue. Wo rking with PT/OT. Denies chest pain, shortness of breath. Review of Systems Review of Systems: As per HPI Physical Exam Constitutional: + thin and + frail appearing Eyes: Anicteric sclerae ENMT: External ears and nose normal. Moist mucous membranes Respiratory: normal respiratory effort, lungs clear to auscultation Cardiovascular: RRR, no murmur, no edema Gastrointestinal (Abdomen): Abdomen soft, nontender Musculoskeletal: Moves all limbs. Pain at left cervical paraspinal region and levator scapula. Skin: no rashes, warm and dry Psychiatric: A+Ox3, euthymic affect Results & Data Results & Data Vital Signs (Past 12 Hours) Vital Signs Temp Pulse Resp BP Pulse Ox O2 Del Method 01/07/23 19:48 36.8 C 71 18 129/77 98 Room Air Resident Activity Tracking Resident Involvement: Resident Care Provided Care Provided: Adult Hospital Medicine (7) Acid reflux disease Esophagitis presence: without esophagitis Qualified Code(s): K21.9 - Gastro- esophageal reflux disease without esophagitis (8) Osteoporosis Osteoporosis type: age-related Presence of current pathological fracture: without current pathological fracture Qualified Code(s): M81.0 - Age-related osteoporosis without current pathological fracture (9) Depression Depression Type: unspecified Qualified Code(s): F32.9 - Major depressive disorder, single episode, unspecified
[2023-01-08] MEDS: CITALOPRAM 40 MG TAB PO SCH (08:18)
[2023-01-08] MEDS: ATORVASTATIN 20 MG TAB PO SCH (08:18)
[2023-01-08] MEDS: HEPARIN SOD 5,000 UNIT/0.5 ML VIAL SQ SCH ×2 (08:18→19:31)
[2023-01-08] MEDS: THIAMINE HCL 100 MG TAB PO SCH (08:18)
[2023-01-08] MEDS: FERROUS SULFATE 325 MG TAB PO SCH (08:18)
[2023-01-08] MEDS: PANTOprazole 40 MG TAB PO SCH ×2 (08:18→19:33)
[2023-01-08] MEDS: MULTIVITAMIN TAB PO SCH (08:18)
[2023-01-08] MEDS: SENNA 8.6 MG TAB PO SCH (08:18)
[2023-01-08] MEDS: FOLIC ACID 400 MCG TAB PO SCH (08:18)
[2023-01-08] MEDS: POLYETHYLENE (MIRALAX) 17 GM PACK PO SCH ×3 (08:18→19:32)
[2023-01-08] MEDS: DICLOFENAC SOD 1% GEL 100 GM TUBE EXT PRN (16:28)
--- NOTE | 2023-01-08 19:06 | Billing Data ---
Date of Service January 08, 2023 Coding Level of Care Code 60552 SUB INP/OBS CARE MIN
--- NOTE | 2023-01-08 19:06 | Hospitalist Progress Note ---
Date of Service January 08, 2023 Assessment & Plan Admission and Anticipated Discharge Date Admission Date: January 03, 2023 Results & Data Results & Data Vital Signs (Past 12 Hours) Vital Signs Temp Pulse Resp BP Pulse Ox O2 Del Method 01/08/23 15:04 97.7 F 73 18 124/73 91 Room Air 01/08/23 08:36 94 Room Air 01/08/23 07:36 98.2 F 66 18 110/68 93 Room Air PG Care Time/CCT Total # of Minutes Spent Total Time Spent with Patient: Total time spent is greater than 50% in coordination of care (as documented) at patient's floor/unit and/or counseling patient: Coding Level of Care Code None Diagnoses CPT Codes Musculoskeletal - Musculoskeletal: [address] 1-2 Body regions ([id number])
[2023-01-08] MEDS: MAGNESIUM SULFATE / D5W 1 GM/100 ML BAG IV SCH ×3 (19:31→22:53)
[2023-01-08] MEDS: LATANOPROST 0.005% OP SOLN 2.5 ML BTL OP SCH (19:35)
[2023-01-08] MEDS: diazePAM 5 MG TABLET PO SCH (22:53)
[2023-01-09] MEDS: MAGNESIUM SULFATE / D5W 1 GM/100 ML BAG IV SCH (01:08)
[2023-01-09] MEDS: oxyCODONE HCL IR 5 MG TAB (IMMEDIATE RELEASE) PO SCH ×6 (02:33→20:30)
[2023-01-09] MEDS: ACETAMINOPHEN 500 MG TAB PO SCH ×3 (03:26→20:26)
[2023-01-09 07:21] LABS: Hematocrit (blood only) 33.4 % (37.0-47.0); Hemoglobin 10.4 g/dl (12.0-16.0); Mean Corpuscular Hemoglobin 29.7 pg (25.0-34.0); Mean Corpuscular Hgb Conc 31.1 g/dL (32.0-36.0); Mean Corpuscular Volume 95.4 fL (80.0-100.0); Mean Platelet Volume 9.7 fL (9.4-12.4); Platelet Count 413 K/uL (130-400); RDW Coefficient of Variation 24.7 % (11.5-14.5); White Blood Count 4.99 K/ul (4.8-10.8)
[2023-01-09 07:41] LABS: Calcium 9.1 mg/dl (8.6-10.3); Creatinine Clr Calc Pharmacy 92.1 ml/min; Est GFR (African American) 127.8 ml/min; Est GFR (Non-African American) 110.3 ml/min; Potassium 3.9 mmol/L (3.5-5.1)
--- NOTE | 2023-01-09 07:47 | Hospitalist Progress Note ---
Date of Service January 09, 2023 Assessment & Plan (1) Cervical spinal stenosis: Plan: 72-year-old female with past medical history of generalized weakness, chronic malnutrition, anemia, sacroiliitis, scoliosis, hyperlipidemia, osteoporosis, acid reflux, glaucoma, and polycythemia vera who presents to the hospital via direct admission from [facility] (after transfer from [facility] on 12/22 for neurosurg consult for C3-C5 critical narrowing) as she temporarily is not a surgical candidate secondary to comorbidities. Cervical spinal stenosis -Initially admitted to [facility] for L sided weakness and paraesthesia on 12/21. MRI at that time w/ C4-C5 canal stenosis and flattening of cord as well as concern for cord edema. -Transferred to [facility] on 12/22 for neurosurgery eval. Not a candidate temporarily because of anemia and EGD showing multiple nonbleeding ulcers. Has outpatient heme and GI followups (for upper and lower endoscopies) -Can consider repeat neurosurg eval as outpatient when better conditioned and the above addressed -Tylenol scheduled. oxycodone 7.5mg q4h scheduled. Added Voltaren gel which patient feels is helpful. -Received Mag Sulfate 4g yesterday and started on Valium qhs. +Patient accepted to [facility], prior auth pending. Patient to receive repeat PT eval today. Anemia -Hb stable in the 10s this admission. While admitted to [facility], had received IV Venofer x3 and prbc x1u UGI bleed: -Seems to be resolved given elevation of Hgb to 10.6 on admission -Serial CBC monitoring -Continue BID PPI Iron deficiency: -Patient is status post Venofer infusions x3 while at [facility] -Continue oral iron supplementation Chronic Malnutrition: -Dietitian consulted, appreciate recommendations Hyperlipidemia: -Continue atorvastatin 20 mg daily Acid reflux: -Twice daily PPI as above Osteoporosis: -Does not appear to be on any bisphosphonate therapy or vitamin D Depression: -Continue citalopram. Diet: Regular DVT prophylaxis: SQ heparin Code status: Full code Disposition: Med surg, pending placement to rehab (2) Anemia: (3) UGIB (upper gastrointestinal bleed): (4) Iron deficiency: (5) Chronic malnutrition: (6) Hyperlipidemia: (7) Acid reflux disease: (8) Osteoporosis: (9) Depression: Admission and Anticipated Discharge Date Admission Date: January 03, 2023 Supervising Physician Co-Signing Physician Notes I personally examined the patient and verified all benson points of history and exam, discussed case, and agree with decision making with Dr Murphy neck pain doing a little better with OMT and voltaren gel. HEENT normocephalic atraumatic mucous membranes moist. Breathing unlabored no accessory muscle use good effort. Osteopathic/musculoskeletal shows left-sided cervical paraspinals and left-sided upper thoracic musculature in the region of her levator Scap to be high tone, tender, decreased range of motioninhibitory pressure and direct myofascialpatient tolerated well and noted some improvement. neck pain / cervical spinal stenosis / cervical somatic dysfunctionPT/OT eval and treat, pain control, OMT as above. outpt OMT to be continued. ongoing voltaren gel, and valiumm HS. awaiting SNF/rehab Subjective 01/09: Patient seen and examined at bedside. No acute events overnight. She notes that the OMT and Voltaren gel have helped some with her left sided neck pain- currently a 9/10 compared to a usual 10/10 intensity. Also notes some better rest overnight. She denies abdominal pain, chest pain, or shortness of breath. Review of Systems Review of Systems: As per HPI Physical Exam Constitutional: + thin and + frail appearing Eyes: Anicteric sclerae. ENMT: External ears and nose normal. Moist mucous membranes. Respiratory: normal respiratory effort, lungs clear to auscultation Cardiovascular: RRR, no murmur, no edema Musculoskeletal: Pain with palpation of left paraspinal cervical muscles and levator scapula. Moves all limbs independently. Skin: no rashes, warm and dry Psychiatric: A+Ox3, euthymic affect Resident Activity Tracking Resident Involvement: Resident Care Provided Care Provided: Adult [facility] Medicine (7) Acid reflux disease Esophagitis presence: without esophagitis Qualified Code(s): K21.9 - Gastro- esophageal reflux disease without esophagitis (8) Osteoporosis Osteoporosis type: age-related Presence of current pathological fracture: without current pathological fracture Qualified Code(s): M81.0 - Age-related osteoporosis without current pathological fracture (9) Depression Depression Type: unspecified Qualified Code(s): F32.9 - Major depressive disorder, single episode, unspecified
[2023-01-09] MEDS: SENNA 8.6 MG TAB PO SCH (07:48)
[2023-01-09] MEDS: FOLIC ACID 400 MCG TAB PO SCH (07:49)
[2023-01-09] MEDS: FERROUS SULFATE 325 MG TAB PO SCH (07:49)
[2023-01-09] MEDS: HEPARIN SOD 5,000 UNIT/0.5 ML VIAL SQ SCH ×3 (07:49→20:28)
[2023-01-09] MEDS: ATORVASTATIN 20 MG TAB PO SCH (07:49)
[2023-01-09] MEDS: MULTIVITAMIN TAB PO SCH (07:49)
[2023-01-09] MEDS: PANTOprazole 40 MG TAB PO SCH ×2 (07:49→20:27)
[2023-01-09] MEDS: CITALOPRAM 40 MG TAB PO SCH (07:49)
[2023-01-09] MEDS: THIAMINE HCL 100 MG TAB PO SCH (07:49)
[2023-01-09] MEDS: POLYETHYLENE (MIRALAX) 17 GM PACK PO SCH ×3 (07:50→20:26)
[2023-01-09] MEDS: DICLOFENAC SOD 1% GEL 100 GM TUBE EXT PRN (08:00)
[2023-01-09] MEDS ORDERED: DICLOFENAC SOD 1% GEL 100 GM TUBE EXT SCH ×2 (09:15→12:00)
[2023-01-09] MEDS ORDERED: Nursing to Pharmacy Communication SCH (12:15)
[2023-01-09] MEDS: DICLOFENAC SOD 1% GEL 100 GM TUBE EXT SCH ×2 (13:39→20:27)
--- NOTE | 2023-01-09 19:02 | Billing Data ---
Date of Service January 09, 2023 Coding Level of Care Code 44052 SUB INP/OBS CARE
--- NOTE | 2023-01-09 19:03 | Hospitalist Progress Note ---
Date of Service January 09, 2023 Assessment & Plan Admission and Anticipated Discharge Date Admission Date: January 03, 2023 Results & Data Results & Data Vital Signs (Past 12 Hours) Vital Signs Temp Pulse Resp BP Pulse Ox O2 Del Method 01/09/23 16:40 93 Room Air 01/09/23 14:10 97.7 F 77 16 116/76 90 Room Air 01/09/23 07:55 Room Air 01/09/23 08:50 98.1 F 75 18 102/66 92 Room Air PG Care Time/CCT Total # of Minutes Spent Total Time Spent with Patient: Total time spent is greater than 50% in coordination of care (as documented) at patient's floor/unit and/or counseling patient: Coding Level of Care Code None Diagnoses CPT Codes Musculoskeletal - Musculoskeletal: [address] 1-2 Body regions ([id number])
[2023-01-09] MEDS: LATANOPROST 0.005% OP SOLN 2.5 ML BTL OP SCH (20:29)
[2023-01-09] MEDS: diazePAM 5 MG TABLET PO SCH (20:30)
[2023-01-10] MEDS: oxyCODONE HCL IR 5 MG TAB (IMMEDIATE RELEASE) PO SCH ×6 (00:48→21:14)
[2023-01-10] MEDS: DICLOFENAC SOD 1% GEL 100 GM TUBE EXT SCH ×4 (00:51→20:15)
[2023-01-10] MEDS: ACETAMINOPHEN 500 MG TAB PO SCH ×3 (05:03→20:14)
[2023-01-10 08:13] LABS: Hematocrit (blood only) 33.5 % (37.0-47.0); Hemoglobin 10.4 g/dl (12.0-16.0); Mean Corpuscular Hemoglobin 29.6 pg (25.0-34.0); Mean Corpuscular Volume 95.4 fL (80.0-100.0); Mean Platelet Volume 9.8 fL (9.4-12.4); Platelet Count 416 K/uL (130-400); RDW Coefficient of Variation 24.7 % (11.5-14.5); RDW Standard Deviation 86.6 fL (36.4-46.3); Red Blood Count 3.51 M/uL (4.20-5.40)
[2023-01-10] MEDS: FERROUS SULFATE 325 MG TAB PO SCH (08:20)
[2023-01-10] MEDS: ATORVASTATIN 20 MG TAB PO SCH (08:20)
[2023-01-10] MEDS: CITALOPRAM 40 MG TAB PO SCH (08:20)
[2023-01-10] MEDS: MULTIVITAMIN TAB PO SCH (08:21)
[2023-01-10] MEDS: FOLIC ACID 400 MCG TAB PO SCH (08:21)
[2023-01-10] MEDS: SENNA 8.6 MG TAB PO SCH (08:21)
[2023-01-10] MEDS: THIAMINE HCL 100 MG TAB PO SCH (08:21)
[2023-01-10] MEDS: POLYETHYLENE (MIRALAX) 17 GM PACK PO SCH ×3 (08:22→21:16)
[2023-01-10] MEDS: PANTOprazole 40 MG TAB PO SCH ×2 (08:22→21:17)
[2023-01-10 08:25] LABS: BUN Creatinine Ratio 51.4 (10-20); Calcium 9.2 mg/dl (8.6-10.3); Creatinine Clr Calc Pharmacy 87.1 ml/min; Est GFR (African American) 125.5 ml/min; Est GFR (Non-African American) 108.3 ml/min
[2023-01-10] MEDS: HEPARIN SOD 5,000 UNIT/0.5 ML VIAL SQ SCH ×2 (08:26→21:17)
--- NOTE | 2023-01-10 14:01 | XRay Report ---
TWO VIEW CHEST CLINICAL HISTORY: Hypoxia. FINDINGS: AP and lateral chest radiographs are compared to study dated 12/21/2022. The heart is enlarge d noting atherosclerotic calcification of the thoracic aorta. There is pulmonary vascular congestion. There are small pleural effusions with bibasilar atelectasis. There is no pneumothorax. The skeletal structures are osteopenic. Compression deformities are noted at the thoracolumbar junction. IMPRESSION: 1. Cardiomegaly with evidence of congestive failure. 2. Small pleural effusions with bibasilar atelectasis. ACT 112: Negative or not required by law. Electronically signed by: Gerardo Hager M.D. 01/10/2023 2:00 PM
--- NOTE | 2023-01-10 14:31 | Hospitalist Progress Note ---
Date of Service January 10, 2023 Assessment & Plan (1) Cervical spinal stenosis: Plan: 72-year-old female with past medical history of generalized weakness, chronic malnutrition, anemia, sacroiliitis, scoliosis, hyperlipidemia, osteoporosis, acid reflux, glaucoma, and polycythemia vera who presents to the hospital via direct admission from [facility] (after transfer from [facility] on 12/22 for neurosurg consult for C3-C5 critical narrowing) as she temporarily is not a surgical candidate secondary to comorbidities. Cervical spinal stenosis -Initially admitted to [facility] for L sided weakness and paraesthesia on 12/21. MRI at that time w/ C4-C5 canal stenosis and flattening of cord as well as concern for cord edema. -Transferred to [facility] on 12/22 for neurosurgery eval. Not a candidate temporarily because of anemia and EGD showing multiple nonbleeding ulcers. Has outpatient heme and GI followups (for upper and lower endoscopies) -Can consider repeat neurosurg eval as outpatient when better conditioned and the above addressed -Tylenol scheduled. oxycodone 7.5mg q4h scheduled. Added Voltaren gel which patient feels is helpful. -Received Mag Sulfate 4g on Sunday and started on Valium qhs. -Plan to transition to Baclofen over Valium at time of discharge +Patient accepted to [facility], but will need new prior auth due to delay in discharge today Hypoxemia, New Oxygen Requirement -Nursing reports that patient had dipped to mid/lower 80%s O2 saturation, patient initially declined supplemental oxygen -Eventually accepted supplemental O2, has been 94-95% O2 on 2L NC -No home oxygen requirement -Chest XR: cardiomegaly with signs of congestive failure, small pleural effusions with bibasilar atelectasis -No history of CHF -Echo completed: EF 60-65%, mild LVH and tricuspid regurg. No wall motion abnormalities. -Ordered IV Lasix this afternoon, will evaluate response and reassess tomorrow -Encourage incentive spirometer use Anemia -Hb stable in the 10s this admission. While admitted to [facility], had received IV Venofer x3 and prbc x1u UGI bleed: -Seems to be resolved given elevation of Hgb to 10.6 on admission -Serial CBC monitoring -Continue BID PPI Iron deficiency: -Patient is status post Venofer infusions x3 while at [facility] -Continue oral iron supplementation Chronic Malnutrition: -Dietitian consulted, appreciate recommendations Hyperlipidemia: -Continue atorvastatin 20 mg daily Acid reflux: -Twice daily PPI as above Osteoporosis: -Does not appear to be on any bisphosphonate therapy or vitamin D Depression: -Continue citalopram. Diet: Regular DVT prophylaxis: SQ heparin Code status: Full code Disposition: Med surg, pending placement to rehab (2) Anemia: (3) UGIB (upper gastrointestinal bleed): (4) Iron deficiency: (5) Chronic malnutrition: (6) Hyperlipidemia: (7) Acid reflux disease: (8) Osteoporosis: (9) Depression: Admission and Anticipated Discharge Date Admission Date: January 03, 2023 Supervising Physician Co-Signing Physician Notes I personally examined the patient and verified all benson points of history and exam, discussed case, and agree with decision making with Dr Murphy OMT and gel still helping. later found to not be able to be weaned from O2 - CXR c/w pulmonary edema. HEENT normocephalic atraumatic mucous membranes moist. Breathing unlabored no accessory muscle use good effort. Osteopathic/musculoskeletal shows left-sided cervical paraspinals and left-sided upper thoracic musculature in the region of her levator Scap to be high tone, tender, decreased range of motioninhibitory pressure and direct myofascialpatient tolerated well and noted some improvement. neck pain / cervical spinal stenosis / cervical somatic dysfunctionPT/OT eval and treat, pain control, OMT as above. outpt OMT to be continued (discussed again). ongoing voltaren gel, and valium HS. had to delay SNF/rehab due to pulmonary edema Acute pulmonary edemaecho really only consistent with a possibility for diastolic CHF, somewhat odd that she would decompensate into failure nowgiven that she does not seem to be under significant physiologic stress, no hypertension for afterload, etc.managed with diuresis, if it resolves quicklyit might have been left over fluid overload from her hospital stay for peptic ulcer disease, although the timing of that would still be a bit odd. At the same time, very reassuring that she does not appear to have significant valvulopathy or wall motion abnormalities. Might benefit from afterload reduction like an DONNA inhibitor, close and serial outpatient follow-up will certainly be in order Subjective 01/09: Patient seen and examined at bedside. No acute events overnight. Notes some improvement with Voltaren gel and OMT in regards to her neck pain. Denies chest pain or abdominal pain. Does not feel subjectively short of breath at rest. Review of Systems Review of Systems: As per HPI Physical Exam Constitutional: + thin and + frail appearing Eyes: Anicteric sclerae ENMT: External ears and nose normal. Moist mucous membranes Respiratory: normal respiratory effort, lungs clear to auscultation Cardiovascular: RRR, no murmur, no edema Skin: no rashes, warm and dry Psychiatric: A+Ox3, euthymic affect Results & Data Results & Data Vital Signs (Past 12 Hours) Vital Signs Temp Pulse Resp BP Pulse Ox O2 Del Method O2 Flow Rate 01/10/23 10:18 36.7 C 78 18 100/62 95 Nasal Cannula 2 01/10/23 07:04 93 Room Air 01/10/23 07:03 37 C 67 16 110/73 92 Room Air Resident Activity Tracking Resident Involvement: Resident Care Provided Care Provided: Adult [facility] Medicine (7) Acid reflux disease Esophagitis presence: without esophagitis Qualified Code(s): K21.9 - Gastro- esophageal reflux disease without esophagitis (8) Osteoporosis Osteoporosis type: age-related Presence of current pathological fracture: without current pathological fracture Qualified Code(s): M81.0 - Age-related osteoporosis without current pathological fracture (9) Depression Depression Type: unspecified Qualified Code(s): F32.9 - Major depressive disorder, single episode, unspecified
[2023-01-10] MEDS ORDERED: FUROSEMIDE 40 MG/4 ML VIAL IV ONE (15:00)
--- NOTE | 2023-01-10 16:16 | XCELERA ---
[id number]
--- NOTE | 2023-01-10 17:35 | Billing Data ---
Date of Service January 10, 2023 Coding Level of Care Code 39109 SUB INP/OBS CARE MIN
--- NOTE | 2023-01-10 17:36 | Hospitalist Progress Note ---
Date of Service January 10, 2023 Assessment & Plan Admission and Anticipated Discharge Date Admission Date: January 03, 2023 Results & Data Results & Data Vital Signs (Past 12 Hours) Vital Signs Temp Pulse Resp BP Pulse Ox O2 Del Method O2 Flow Rate 01/10/23 15:54 98.4 F 73 18 115/71 94 Nasal Cannula 2 01/10/23 10:18 98.1 F 78 18 100/62 95 Nasal Cannula 2 01/10/23 07:04 93 Room Air 01/10/23 07:03 98.6 F 67 16 110/73 92 Room Air PG Care Time/CCT Total # of Minutes Spent Total Time Spent with Patient: Total time spent is greater than 50% in coordination of care (as documented) at patient's floor/unit and/or counseling patient: Coding Level of Care Code None Diagnoses CPT Codes Musculoskeletal - Musculoskeletal: [address] 1-2 Body regions ([id number])
[2023-01-10] MEDS: LATANOPROST 0.005% OP SOLN 2.5 ML BTL OP SCH (20:15)
[2023-01-10] MEDS: diazePAM 5 MG TABLET PO SCH (21:14)
[2023-01-11] MEDS: oxyCODONE HCL IR 5 MG TAB (IMMEDIATE RELEASE) PO SCH ×6 (01:13→20:08)
[2023-01-11] MEDS: DICLOFENAC SOD 1% GEL 100 GM TUBE EXT SCH ×4 (01:14→20:11)
[2023-01-11] MEDS: ACETAMINOPHEN 500 MG TAB PO SCH ×3 (04:52→20:11)
[2023-01-11] MEDS: FERROUS SULFATE 325 MG TAB PO SCH (08:11)
[2023-01-11 08:12] LABS: Calcium 9.4 mg/dl (8.6-10.3); Potassium 3.7 mmol/L (3.5-5.1)
[2023-01-11] MEDS: THIAMINE HCL 100 MG TAB PO SCH (08:12)
[2023-01-11] MEDS: ATORVASTATIN 20 MG TAB PO SCH (08:12)
[2023-01-11] MEDS: PANTOprazole 40 MG TAB PO SCH ×2 (08:12→20:13)
[2023-01-11] MEDS: SENNA 8.6 MG TAB PO SCH (08:12)
[2023-01-11] MEDS: FOLIC ACID 400 MCG TAB PO SCH (08:13)
[2023-01-11] MEDS: CITALOPRAM 40 MG TAB PO SCH (08:13)
[2023-01-11] MEDS: MULTIVITAMIN TAB PO SCH (08:13)
[2023-01-11] MEDS: POLYETHYLENE (MIRALAX) 17 GM PACK PO SCH ×3 (08:14→20:13)
[2023-01-11] MEDS: HEPARIN SOD 5,000 UNIT/0.5 ML VIAL SQ SCH ×2 (08:17→20:12)
[2023-01-11 08:18] LABS: BUN Creatinine Ratio 46.3 (10-20); Creatinine Clr Calc Pharmacy 78.6 ml/min; Est GFR (African American) 121.3 ml/min; Est GFR (Non-African American) 104.7 ml/min
--- NOTE | 2023-01-11 09:41 | Hospitalist Progress Note ---
Date of Service January 11, 2023 Assessment & Plan (1) Cervical spinal stenosis: Plan: 72-year-old female with past medical history of generalized weakness, chronic malnutrition, anemia, sacroiliitis, scoliosis, hyperlipidemia, osteoporosis, acid reflux, glaucoma, and polycythemia vera who presents to the hospital via direct admission from [facility] (after transfer from [facility] on 12/22 for neurosurg consult for C3-C5 critical narrowing) as she temporarily is not a surgical candidate secondary to comorbidities. Cervical spinal stenosis -Initially admitted to [facility] for L sided weakness and paraesthesia on 12/21. MRI at that time w/ C4-C5 canal stenosis and flattening of cord as well as concern for cord edema. -Transferred to [facility] on 12/22 for neurosurgery eval. Not a candidate temporarily because of anemia and EGD showing multiple nonbleeding ulcers. Has outpatient heme and GI followups (for upper and lower endoscopies) -Can consider repeat neurosurg eval as outpatient when better conditioned and the above addressed -Tylenol scheduled. oxycodone 7.5mg q4h scheduled. Added Voltaren gel which patient feels is helpful. -Received Mag Sulfate 4g on Sunday and started on Valium qhs. -Plan to transition to Baclofen over Valium at time of discharge +Patient accepted to [facility], anticipate discharge tomorrow New Oxygen Requirement, Diastolic Heart Failure -Nursing reports that patient had dipped to mid/lower 80%s O2 saturation, patient initially declined supplemental oxygen -Eventually accepted supplemental O2, has been 94-95% O2 on 2L NC -No home oxygen requirement -Chest XR: cardiomegaly with signs of congestive failure, small pleural effusions with bibasilar atelectasis -No history of CHF -Echo completed: EF 60-65%, mild LVH and tricuspid regurg. No wall motion abnormalities. -IV Lasix yesterday and today. -Encourage incentive spirometer use -Suspect that her symptoms are a combination of both worsened diastolic failure after peptic ulcer disease as well as atelectasis in the setting of an extended hospitalization Anemia -Hb stable in the 10s this admission. While admitted to [facility], had received IV Venofer x3 and prbc x1u UGI bleed: -Seems to be resolved given elevation of Hgb to 10.6 on admission -Serial CBC monitoring -Continue BID PPI Iron deficiency: -Patient is status post Venofer infusions x3 while at [facility] -Continue oral iron supplementation Chronic Malnutrition: -Dietitian consulted, appreciate recommendations Hyperlipidemia: -Continue atorvastatin 20 mg daily Acid reflux: -Twice daily PPI as above Osteoporosis: -Does not appear to be on any bisphosphonate therapy or vitamin D Depression: -Continue citalopram. Diet: Regular DVT prophylaxis: SQ heparin Code status: Full code Disposition: Med surg, pending placement to rehab (2) Anemia: (3) UGIB (upper gastrointestinal bleed): (4) Iron deficiency: (5) Chronic malnutrition: (6) Hyperlipidemia: (7) Acid reflux disease: (8) Osteoporosis: (9) Depression: Admission and Anticipated Discharge Date Admission Date: January 03, 2023 Supervising Physician Co-Signing Physician Notes I personally examined the patient and verified all benson points of history and exam, discussed case, and agree with decision making with Dr Murphy OMT and gel still helping. no sob but still not weaned from O2 - discussed dCHF and atelectasis. HEENT normocephalic atraumatic mucous membranes moist. Breathing unlabored no accessory muscle use good effort. Osteopathic/musculoskeletal shows left-sided cervical paraspinals and left-sided upper thoracic musculature in the region of her levator Scap to be high tone, tender, decreased range of motioninhibitory pressure and direct myofascialpatient tolerated well and noted some improvement. neck pain / cervical spinal stenosis / cervical somatic dysfunctionPT/OT eval and treat, pain control, OMT as above. outpt OMT to be continued (discussed yet again outpt f/u). ongoing voltaren gel, and valium HS. had to delay SNF/rehab due to pulmonary edema but now stable to go Acute pulmonary edemadCHF (acute HFpEF) - really no symptoms. Has not had a whole lot of fluid volume here, not a ton of physiologic stress either. After considerationgiven that she was just over at [facility] with GI bleedI suspect that (as would be standard of care to maintain hemodynamics and keep her from losing circulation) she likely had a lot of isotonic fluids and bloodprobably at that point she got a little bit volume overloadedbut since it was mild (corroborated by her chest x-ray that does not look too bad) she would have and symptomsand now she probably has some atelectasis on top of the mild pulmonary edema creating the hypoxiathis would definitely fit given that she is not really feeling short of breath. Additional diuresis, incentive spirometry, hopefully we can wean oxygen. Close outpatient follow-up and serial exams. Subjective 01/11: Patient seen and examined at bedside. She denies feeling short of breath and is frustrated that she needs to wear the oxygen- states she wants to be discharged to [facility] without supplemental oxygen. She denies chest pain or cough. No overnight events. Review of Systems Review of Systems: As per HPI Physical Exam Constitutional: + thin and + frail appearing Eyes: Anicteric sclerae ENMT: External ears and nose normal, moist mucous membranes. Respiratory: normal respiratory effort, lungs clear to auscultation Cardiovascular: RRR, no murmur, no edema Skin: no rashes, warm and dry Psychiatric: A+Ox3, euthymic affect Results & Data Results & Data Vital Signs (Past 12 Hours) Vital Signs Temp Pulse Resp BP Pulse Ox O2 Del Method O2 Flow Rate 01/11/23 07:22 Nasal Cannula 2 01/11/23 07:07 36.8 C 66 16 102/66 94 Room Air Resident Activity Tracking Resident Involvement: Resident Care Provided Care Provided: Adult Hospital Medicine (7) Acid reflux disease Esophagitis presence: without esophagitis Qualified Code(s): K21.9 - Gastro- esophageal reflux disease without esophagitis (8) Osteoporosis Osteoporosis type: age-related Presence of current pathological fracture: without current pathological fracture Qualified Code(s): M81.0 - Age-related osteoporosis without current pathological fracture (9) Depression Depression Type: unspecified Qualified Code(s): F32.9 - Major depressive disorder, single episode, unspecified
[2023-01-11] MEDS ORDERED: FUROSEMIDE 40 MG/4 ML VIAL IV ONE (10:53)
--- NOTE | 2023-01-11 18:21 | Billing Data ---
Date of Service January 11, 2023 Coding Level of Care Code 27074 SUB INP/OBS CARE MIN
--- NOTE | 2023-01-11 18:22 | Hospitalist Progress Note ---
Date of Service January 11, 2023 Assessment & Plan Admission and Anticipated Discharge Date Admission Date: January 03, 2023 Results & Data Results & Data Vital Signs (Past 12 Hours) Vital Signs Temp Pulse Resp BP Pulse Ox O2 Del Method O2 Flow Rate 01/11/23 16:14 97.9 F 74 16 103/65 94 Nasal Cannula 2 01/11/23 15:22 97.9 F 76 18 106/69 95 Nasal Cannula 2 01/11/23 07:22 Nasal Cannula 2 01/11/23 07:07 98.2 F 66 16 102/66 94 Room Air PG Care Time/CCT Total # of Minutes Spent Total Time Spent with Patient: Total time spent is greater than 50% in coordination of care (as documented) at patient's floor/unit and/or counseling patient: Coding Level of Care Code None Diagnoses CPT Codes Musculoskeletal - Musculoskeletal: [address] 1-2 Body regions ([id number])
[2023-01-11] MEDS: diazePAM 5 MG TABLET PO SCH (20:09)
[2023-01-11] MEDS: LATANOPROST 0.005% OP SOLN 2.5 ML BTL OP SCH (20:12)
[2023-01-12] MEDS: oxyCODONE HCL IR 5 MG TAB (IMMEDIATE RELEASE) PO SCH ×4 (00:31→13:49)
[2023-01-12] MEDS: DICLOFENAC SOD 1% GEL 100 GM TUBE EXT SCH ×3 (00:32→13:49)
[2023-01-12] MEDS: ACETAMINOPHEN 500 MG TAB PO SCH ×2 (04:19→13:49)
[2023-01-12] MEDS: PANTOprazole 40 MG TAB PO SCH (08:44)
[2023-01-12] MEDS: FOLIC ACID 400 MCG TAB PO SCH (08:44)
[2023-01-12] MEDS: MULTIVITAMIN TAB PO SCH (08:45)
[2023-01-12] MEDS: THIAMINE HCL 100 MG TAB PO SCH (08:45)
[2023-01-12] MEDS: FERROUS SULFATE 325 MG TAB PO SCH (08:45)
[2023-01-12] MEDS: CITALOPRAM 40 MG TAB PO SCH (08:45)
[2023-01-12] MEDS: POLYETHYLENE (MIRALAX) 17 GM PACK PO SCH ×2 (08:45→13:50)
[2023-01-12] MEDS: SENNA 8.6 MG TAB PO SCH (08:45)
[2023-01-12] MEDS: ATORVASTATIN 20 MG TAB PO SCH (08:46)
[2023-01-12] MEDS: HEPARIN SOD 5,000 UNIT/0.5 ML VIAL SQ SCH (08:46)
--- NOTE | 2023-01-12 13:16 | Discharge Summary ---
Date of Service January 12, 2023 Admission HPI Per Admitting Provider Patient is a 72-year-old female with past medical history of generalized weakness, chronic malnutrition, anemia, sacroiliitis, scoliosis, hyperlipidemia, osteoporosis, acid reflux, glaucoma, and polycythemia vera who presents to the hospital via direct admission from [facility]. Patient was transferred to [facility] on 12/22/2022 for the need of neurosurgical consult due to severe/critical central canal narrowing in the C3-C5 levels. Please see previous notes for additional detail. To summarize stay at [facility] per transfer notes and discussion with on-call hospitalist and spinal gemini shruthi at [facility]: Patient was excepted for neurosurgery consultation, however, several other factors had come up during hospitalization including anemia requiring blood transfusion secondary upper GI bleed. While she was there, she received an EGD which showed 3 nonbleeding gastric ulcers. Neurosurgery did see the patient, however, due to the patient's anemia and malnutrition, they felt that she was a poor surgical candidate and wanted to defer any surgery to the outpatient setting. Additionally, a PEG tube was considered while she was there, however, GI felt that having this should be deferred in the setting of acute upper GI bleed and we had to wait until the ulcers healed. A colonoscopy was also performed, but it was a poor study due to impacted stool. Because no surgical intervention could be done during the patient's hospitalization at [facility], patient was transferred back to [facility] for continued management. When talking with the patient, patient is overall confused as to why she has been transferred back to this facility. She is upset that she has not gotten the surgery she needs and she feels that her arm is actually gotten worse while she was at [facility]. She starts tearing up during conversation in regard to how she was just left in her room for days without being walked or given exercise and feels that she has become deconditioned because of that. Patient reports that her neck is still very stiff due to pain which limits her rotation, flexion, and extension of the neck severely. Principal Diagnosis Spinal stenosis Discharge Exam In general she is awake and alert pleasant no distress. HEENT normocephalic atraumatic mucous membranes moist. Breathing unlabored no accessory muscle use good effort. Skin shows no rashes no pallor or icterus. Discharge Data Allergies Allergy/AdvReac Type Severity Reaction Status Date / Time No Known Allergies Allergy Verified 12/21/22 18:08 Hospital Course (1) Cervical spinal stenosis: 72-year-old female with past medical history of generalized weakness, chronic malnutrition, anemia, sacroiliitis, scoliosis, hyperlipidemia, osteoporosis, acid reflux, glaucoma, and polycythemia vera who presents to the hospital via direct admission from [facility] (after transfer from [facility] on 12/22 for neurosurg consult for C3-C5 critical narrowing) as she temporarily is not a surgical candidate secondary to comorbidities. Cervical spinal stenosis -Initially admitted to [facility] for L sided weakness and paraesthesia on 12/21. MRI at that time w/ C4-C5 canal stenosis and flattening of cord as well as concern for cord edema. -Transferred to [facility] on 12/22 for neurosurgery eval. Not a candidate temporarily because of anemia and EGD showing multiple nonbleeding ulcers. Has outpatient heme and GI followups (for upper and lower endoscopies) -Can consider repeat neurosurg eval as outpatient when better conditioned and the above addressed -Tylenol scheduled. oxycodone 7.5mg q4h scheduled. Added Voltaren gel which patient feels is helpful. -Received Mag Sulfate 4g on Sunday and started on Valium qhs. Can consider baclofen at bedtime of a muscle relaxant as neededutilized Valium during hospital stay, but would definitely not want to continue that over the long-term. -Pain is multifactorial between the spinal stenosis itself, and a lot of secondary muscle spasm/somatic dysfunction. Has responded quite nicely to OMT throughout her hospital staywould continue Voltaren gel, would continue OMT if possible at SNFand once she is discharged, would definitely recommend a cross referral from her PCP to Dr. Kendell Fang or Dr. Jason Elliott to continue OMT. +Patient accepted to [facility], transfer today New Oxygen Requirement, Diastolic Heart Failure, probably mixed picture -Essentially asymptomatic, just we are unable to wean her from 2 L. -Secondary work-up showed mild diastolic type findings on her echocardiogram, an d chest x-ray with a little bit of failure appearanceLasix yielded a lot of urine output but not necessarily much improvement in her oxygenation -Suspect multifactorial: Given her mild diastolic CHF on echo, I suspect that when she was fluid resuscitated for peptic ulcer disease she probably had mild volume overloadnow that she also was not moving because of her spinal stenosis/pain I suspect we have a big overlay of atelectasis, and given that she has a rather extensive pack-year history, it would not at all surprise me if we have a degree of undiagnosed COPD. Given that she is essentially asymptomatic, would not diurese further unless clinically warranted; would encourage incentive spirometry but suspect the atelectasis will largely improve once she is more mobile; consider spirometry as an outpatient, but given no clear diagnosis at this time and no significant shortness of breath (just a bit of "stubborn mild hypoxia") did not initiate inhalers yet Anemia -Hb stable in the 10s this admission. While admitted to [facility], had received IV Venofer x3 and prbc x1u. Follow periodic BMP UGI bleed: -resolved given elevation of Hgb to 10.6 on admission -Serial CBC monitoring periodically as an outpatient -Continue BID PPI Iron deficiency: -Patient is status post Venofer infusions x3 while at [facility] -Continue oral iron supplementation Chronic Malnutrition: -Dietitian consulted, appreciate recommendations Hyperlipidemia: -Continue atorvastatin 20 mg daily Acid reflux: -Twice daily PPI as above Osteoporosis: -Does not appear to be on any bisphosphonate therapy or vitamin D Depression: -Continue citalopram. (2) Anemia: (3) UGIB (upper gastrointestinal bleed): (4) Iron deficiency: (5) Chronic malnutrition: (6) Hyperlipidemia: (7) Acid reflux disease: (8) Osteoporosis: (9) Depression: Total Time Total Time Spent Total Time Spent (In Minutes): <30 Discharge Plan Discharge Items Patient Disposition: Transfer Snf Fac Reason For Visit: CERVICAL STENOSIS Discharge Diagnosis: Cervical Stenosis Activity: Per Instructions section Non-emergency contact: Primary Care Provider Call non-emergency contact if: you have any medication questions, your symptoms worsen and your temperature is above 101.5 Follow-up/Referrals: Lyn Handy MD [Primary Care Provider] - Diet: Regular Diet Texture: Easy to Chew Addtl Attending Provider Instructions: 72-year-old female with past medical history of generalized weakness, chronic malnutrition, anemia, sacroiliitis, scoliosis, hyperlipidemia, osteoporosis, acid reflux, glaucoma, and polycythemia vera who presents to the hospital via direct admission from [facility] (after transfer from [facility] on 12/22 for neurosurg consult for C3-C5 critical narrowing) as she temporarily is not a surgical candidate secondary to comorbidities. Cervical spinal stenosis -Has significant spinal stenosismost recently was felt to be not a surgical candidate temporarily because of peptic ulcer disease. Hopefully this will exchange administrator time -At the same time, while her arm weakness probably relates to her spinal stenosis, her neck pain itself was also largely overlying muscles (predominantly levator scapula and paraspinal muscles on the left)and she responded quite nicely to Voltaren gel and inhibitory pressure/direct myofascial OMT. While her PCP does not perform much OMT to the best of my knowledge, several of her PCPs partners doand I would recommend a "cross referral" to Dr. Kendell Fang or Dr. Jason Elliott to continue OMT as an outpatient hypoxia -Mild, but has been difficult to wean -After reviewwe suspect this is multifactorial: Mild diastolic CHF (diuretics given, would only diurese further if clinically warranted), atelectasis (using incentive spirometer, but I suspect this will only truly improve once she is more mobile and moving around well), and possibly a degree of undefined COPD (has a fairly extensive prior smoking history and no prior PFTs that I can see) -Oxygen has been stable at 2 L or lesswean as tolerated. She has had no dyspnea Anemia -Hb stable in the 10s this admission. While admitted to [facility], had received IV Venofer x3 and prbc x1u UGI bleed: -Resolved. Obviously would avoid NSAIDs Iron deficiency: -Patient is status post Venofer infusions x3 while at [facility] -Continue oral iron supplementation Chronic Malnutrition: -Dietitian consulted, appreciate recommendations Hyperlipidemia: -Continue atorvastatin 20 mg daily Acid reflux: -Twice daily PPI as above Osteoporosis: -Does not appear to be on any bisphosphonate therapy or vitamin D Depression: -Continue citalopram. follow periodic CBC, BMP Pending Studies at Discharge: No Stand-Alone Forms: My [facility] Skilled Items Patient informed of condition?: Yes DNR: No Discharge Level of Care: Acute rehab Communicable Disease: No Discharge Prognosis: Stable Lines: None Urinary Catheter: No Medications and DC Order Prescriptions: New pantoprazole 40 mg Tablet,Delayed Release (Dr/Ec) 40 mg PO BID Qty: 0 0RF thiamine HCl (vitamin B1) 100 mg Tablet 100 mg PO QAM Qty: 0 0RF polyethylene glycol 3350 [Miralax] 17 gram Powder In Packet 17 g PO TID Qty: 0 0RF sennosides [Senokot] 8.6 mg Tablet 17.2 mg PO QAM Qty: 0 0RF ferrous sulfate 325 mg (65 mg iron) Tablet,Delayed Release (Dr/Ec) 325 mg PO QAM Qty: 0 0RF folic acid 400 mcg Tablet 400 mcg PO QAM Qty: 0 0RF multivitamin with folic acid [Daily-Hamilton (with folic acid)] 400 mcg Tablet 1 tab PO QAM Qty: 0 0RF acetaminophen [Tylenol Extra Strength] 500 mg Tablet 1,000 mg PO Q8H Qty: 0 0RF diclofenac sodium [Voltaren Arthritis Pain] 1 % Gel 2 g EXT Q6H Qty: 0 0RF Continued atorvastatin 20 mg tablet 20 mg PO DAILY Qty: 90 3RF citalopram 40 mg tablet 40 mg PO DAILY Qty: 90 3RF Effer-K 25 mEq tablet, effervescent 25 meq PO BID Qty: 180 3RF Rx Instructions: unflavored potassium, sodium phosphates [Phos-NaK] 280-160-250 mg powder in packet 1 packet PO DAILY Qty: 100 2RF dorzolamide-timolol 22.3-6.8 mg/mL drops 1 drops OP BID latanoprost 0.005 % drops 1 drops OP QPM food supplemt, lactose-reduced Liquid 3 ea PO TID Rx Instructions: RICH CHOCOLATE FLAVORED Discontinued omeprazole 20 mg capsule,delayed release(DR/EC) 20 mg PO DAILY Qty: 90 1RF Discharge Orders: Discharge Order- CHF (Routine); Ordered 01/12/23 Ordered By: Franky Pizano Admission Data Admit Date/Time: 01/03/23 05:33 Attending Provider: Franky Pizano Admit Provider: Jose Antonio Patel Primary Care Provider: Lyn Handy Other Providers: [place],Care Coding Level of Care Code 99072 IN/OBS DISCH 30 MIN/LESS Diagnoses Cervical spinal stenosis M48.02 Anemia D64.9 UGIB (upper gastrointestinal bleed) K92.2 Iron deficiency E61.1 Chronic malnutrition E46 Hyperlipidemia E78.5 Acid reflux disease K21.9 Esophagitis presence: without esophagitis Osteoporosis M81.0 Osteoporosis type: age-related Presence of current pathological fracture: without current pathological fracture Depression F32.9 Depression Type: unspecified
== END 2023-01-12 15:39 | DRG 551 ==
LOC: SUATTDRO 03:35 → 3N 03:35

== ENCOUNTER 2025-03-22 17:53 | Observation (INO) ==
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
[2025-03-22] MEDS: MoRPHine SULFATE 4 MG/ML 1 ML CARP\\VIAL IV STA (18:39)
[2025-03-22] MEDS: SODIUM CHLORIDE 0.9% 1,000 ML IV ONE (18:39)
[2025-03-22] MEDS: ONDANSETRON INJ 2 MG/ML 2 ML VIAL IV STA (18:39)
[2025-03-22 19:00] LABS: Hematocrit (blood only) 37.4 % (37.0-47.0); Hemoglobin 12.1 g/dl (12.0-16.0); Immature Granulocytes # (auto) 0.05 K/uL (0.01-0.20); Immature Granulocytes % (auto) 0.5 %; Mean Corpuscular Hemoglobin 31.2 pg (25.0-34.0); Mean Corpuscular Volume 96.4 fL (80.0-100.0); Platelet Count 492 K/uL (130-400); RDW Standard Deviation 53.0 fL (36.4-46.3); Red Blood Count 3.88 M/uL (4.20-5.40); White Blood Count 10.56 K/ul (4.8-10.8)
[2025-03-22 19:18] LABS: Alanine Aminotransferase 12 U/L (7-52); Albumin Globulin Ratio 1.0 (0.9-2); Alkaline Phosphatase 53 U/L (34-104); Anion Gap 6 (3-11); Bilirubin,Total 0.2 mg/dl (0.2-1.0); Blood Urea Nitrogen 20 mg/dl (6-23); Calcium 8.9 mg/dl (8.6-10.3); Carbon Dioxide 27 mmol/L (21-32); Chloride 102 mmol/L (98-107); Globulin 3.2 gm/dl (2.5-4.0); Glucose 97 mg/dl (70-99(Fasting)); Lipase 24 U/L (11-82); Magnesium 1.9 mg/dl (1.7-2.4); Potassium 4.2 mmol/L (3.5-5.1); Sodium 135 mmol/L (136-145); Total Protein 6.5 gm/dl (6.0-8.3)
[2025-03-22 19:27] LABS: INR 0.9 (0.9-1.1); Prothrombin Time 10.3 Seconds (9.0-12.0)
[2025-03-22] MEDS: OPTIRAY 320 100ml IV ONE (19:44)
--- NOTE | 2025-03-22 20:46 | CT Scan Report ---
CT ABDOMEN and PELVIS with INTRAVENOUS CONTRAST HISTORY: Abdominal pain TECHNIQUE: CT abdomen and pelvis with contrast. IV CONTRAST: 100 mL of OMNIPAQUE 300 ENTERIC CONTRAST: Not Given COMPARISON: CT abdomen pelvis December 2022 FINDINGS: LOWER CHEST: Mild cardiomegaly. Coronary and valvular calcifications. Emphysema. Right greater than left bibasilar pulmonary densities. LIVER: No focal lesion identified. Hepatic steatosis and hepatomegaly. GALLBLADDER/BILIARY: Severely distended gallbladder. No significant pericholecystic inflammation is identified. No abnormal biliary dilatation. SPLEEN: Unremarkable. PANCREAS: Unremarkable. ADRENALS: Nodular thickening.. KIDNEYS: Cortical cysts. No stones or hydronephrosis identified. PERITONEUM/RETROPERITONEUM. No lymphadenopathy by size criteria. No aortic aneurysm. Moderate atherosclerosis. GASTROINTESTINAL: No obstruction. Inflammatory changes of the stomach and the loops of small bowel demonstrate wall thickening. There is a large quantity of fluid occupying the large bowel. There is a partial herniation of the fluid containing sigmoid colon into the small wall defect just posteriorly to the left acetabulum. REPRODUCTIVE: BONES: No acute findings. Scoliosis. Chronic compression deformity of L1 vertebral body. Grade 2 anterolisthesis of L5 on S1 with associated chronic pars defects. IMPRESSION: Findings of gastroenteritis and diffuse colitis with diarrheal illness. Small partial herniation of the mesenteric wall of the fluid containing sigmoid colon into the wall defect just posteriorly to the left acetabulum. Distended gallbladder without significant pericholecystic inflammation may be due to fasting. Nonetheless if there is concern for cholecystitis, HIDA scan or ultrasound may be obtained. Patchy bibasilar pulmonary densities may represent atelectasis or pneumonia. Electronically signed by Lane Baldwin 03-22-2025 8:46 PM
[2025-03-22 21:01] LABS: Appearance Urine Clear (Clear); Bacteria Urine Automated None Seen (None Seen); Cast Urine Automated 0-2 /lpf (0-2); Epithelial Cell Urine Auto 0-2 /hpf (0-2); Glucose Urine UA Negative (Negative); RBC Urine Automated 0-2 /hpf (0-2); WBC Urine Automated 0-5 /hpf (0-5)
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
[2025-03-22] MEDS ORDERED: MoRPHine SULFATE 2 MG/ML CARP IV PRN (21:49)
[2025-03-22] MEDS: LACTATED RINGER'S 1,000 ML IV SCH (22:25)
[2025-03-22] MEDS: ACETAMINOPHEN 1,000 MG/100 ML VIAL IV STA (22:25)
[2025-03-22] MEDS: DICYCLOMINE HCL 10 MG CAP PO ONE (22:25)
[2025-03-23 00:02] VITALS: O2SAT 94
[2025-03-23] MEDS: MoRPHine SULFATE 4 MG/ML 1 ML CARP\\VIAL IV PRN (00:04)
[2025-03-23] MEDS ORDERED: ONDANSETRON INJ 2 MG/ML 2 ML VIAL IV PRN (00:16)
[2025-03-23] MEDS ORDERED: DOCUSATE SODIUM 100 MG CAP PO PRN (00:16)
[2025-03-23] MEDS ORDERED: MELATONIN 3 MG TAB PO PRN (00:16)
[2025-03-23] MEDS ORDERED: FLUTICASONE PROPIONATE NA SPR 16 GM BTL PRN (00:16)
[2025-03-23] MEDS ORDERED: POLYETHYLENE (MIRALAX) 17 GM PACK PO PRN (00:16)
[2025-03-23] MEDS: DORZOLAMIDE/TIMOLOL 22.3/6.8MG/ML 10 ML BTL OP SCH (00:58)
[2025-03-23] MEDS: LATANOPROST 0.005% OP SOLN 2.5 ML BTL OP SCH (00:59)
[2025-03-23] MEDS: MIRTAZAPINE TAB 15 MG TAB PO SCH (01:00)
--- NOTE | 2025-03-23 01:38 | Ultrasound Report ---
Exam(s): US GALLBLADDER EXAM: US Abdomen Limited, Gallbladder CLINICAL HISTORY: Reason for exam: RUQ pain. TECHNIQUE: Real-time ultrasound of the right upper quadrant with image documentation. COMPARISON: No relevant prior studies available. FINDINGS: Gallbladder: No gallstones. Mild gallbladder wall thickening at 3 mm. Small amounts of pericholecystic fluid. Common bile duct: The common bile duct is dilated up to 11-12 mm. No stones. Pancreas: Unremarkable as visualized. IMPRESSION: Mild gallbladder wall thickening with small amounts of pericholecystic fluid. No gallstones are identified. Dilated common bile duct at 11-12 mm. Electronically signed by: Kulwinder Navarro MD 03/23/25 01:38 AM
--- NOTE | 2025-03-23 07:24 | Hospitalist Progress Note ---
Date of Service March 23, 2025 Assessment & Plan Admission and Anticipated Discharge Date Admission Date: March 22, 2025 Results & Data Results & Data Vital Signs (Past 12 Hours) Vital Signs Temp Pulse Pulse Pulse Resp BP Pulse Ox 03/23/25 00:10 03/22/25 23:53 36.7 C 70 70 18 173/96 H 94 03/22/25 23:00 03/22/25 22:29 73 03/22/25 21:00 71 18 163/96 H 96 03/22/25 19:56 69 18 142/86 H 95 O2 Del Method 03/23/25 00:10 Room Air 03/22/25 23:53 Room Air 03/22/25 23:00 Room Air 03/22/25 22:29 03/22/25 21:00 03/22/25 19:56 Room Air PG Care Time/CCT Total # of Minutes Spent Total Time Spent with Patient: Total time spent is greater than 50% in coordination of care (as documented) at patient's floor/unit and/or counseling patient: Coding
[2025-03-23 07:26] VITALS: BP 111/72; PULSE 75; RESP 16; TEMP 98.2
[2025-03-23 08:05] LABS: Hematocrit (blood only) 33.8 % (37.0-47.0); Hemoglobin 11.3 g/dl (12.0-16.0); Immature Granulocytes # (auto) 0.04 K/uL (0.01-0.20); Immature Granulocytes % (auto) 0.4 %; Mean Corpuscular Hemoglobin 32.4 pg (25.0-34.0); Mean Corpuscular Volume 96.8 fL (80.0-100.0); Platelet Count 451 K/uL (130-400); RDW Standard Deviation 54.4 fL (36.4-46.3); Red Blood Count 3.49 M/uL (4.20-5.40); White Blood Count 8.94 K/ul (4.8-10.8)
[2025-03-23] MEDS: BACLOFEN 10 MG TAB PO SCH (08:17)
[2025-03-23 08:25] LABS: Alanine Aminotransferase 9.0 U/L (7-52); Albumin Globulin Ratio 1.2 (0.9-2); Alkaline Phosphatase 45.0 U/L (34-104); Anion Gap 4.0 (3-11); Bilirubin,Total 0.2 mg/dl (0.2-1.0); Blood Urea Nitrogen 11.0 mg/dl (6-23); Calcium 8.1 mg/dl (8.6-10.3); Carbon Dioxide 28.0 mmol/L (21-32); Chloride 108.0 mmol/L (98-107); Creatinine Clr Calc Pharmacy 85.7 ml/min; Globulin 2.6 gm/dl (2.5-4.0); Glucose 85.0 mg/dl (70-99(Fasting)); Magnesium 1.9 mg/dl (1.7-2.4); Potassium 4.1 mmol/L (3.5-5.1); Sodium 140.0 mmol/L (136-145); Total Protein 5.6 gm/dl (6.0-8.3)
[2025-03-23] MEDS ORDERED: DICYCLOMINE HCL 10 MG CAP PO SCH (09:00)
[2025-03-23] MEDS: ACETAMINOPHEN 325 MG TAB PO PRN (09:19)
[2025-03-23] MEDS: CITALOPRAM 40 MG TAB PO SCH (09:20)
[2025-03-23] MEDS: ATORVASTATIN 20 MG TAB PO SCH (09:21)
[2025-03-23] MEDS: OPTIRAY 320 125ml IV ONE (11:47)
--- NOTE | 2025-03-23 12:12 | CT Scan Report ---
EXAM: CT Angiography Abdomen and Pelvis With Intravenous Contrast INDICATION: Arterial insufficiency TECHNIQUE: Axial computed tomographic angiography images of the abdomen and pelvis with intravenous contrast. Sagittal and coronal reformatted images were created and reviewed. This CT exam was performed using one or more of the following dose reduction techniques: automated exposure control, adjustment of the mA and/or kV according to patient size, and/or use of iterative reconstruction technique. MIP reconstructed images were created and reviewed. CONTRAST: 119 ml of Optiray 320 was administered intravenously. COMPARISON: CT abdomen with contrast yesterday. FINDINGS: VASCULATURE: Aorta: Ectatic aorta with diffuse mild to moderate calcific plaque. Celiac trunk and mesenteric arteries: No acute change noted. No occlusion or significant stenosis. Renal arteries: No acute change noted. No occlusion or significant stenosis. Iliac arteries: There is moderate bilateral external iliac artery atherosclerosis without stenosis or occlusion. Lung bases: Emphysematous changes and scarring/atelectasis noted in the lower lungs. No basilar pleural effusion. ABDOMEN: Liver: No abnormality noted. No mass. Gallbladder and bile ducts: The gallbladder is distended. The common bile duct is normal for age at 8 mm. No calcified stones. Pancreas: No abnormality noted. No ductal dilation. No mass. Spleen: No abnormality noted. No splenomegaly. Adrenals: Stable adrenal thickening. Kidneys and ureters: Simple right renal cyst/s. No simple cyst follow-up necessary. Left kidney appears normal. No renal stone, hydronephrosis or perinephric fluid. Stomach and bowel: No abnormality noted. No obstruction. No mucosal thickening. PELVIS: Appendix: No findings to suggest acute appendicitis. Bladder: No abnormality noted. No mass. Reproductive: No significant abnormality noted. ABDOMEN and PELVIS: Intraperitoneal space: No abnormality noted. No significant fluid collection. No free air. Bones/joints: No acute or atypical chronic changes. Soft tissues: No abnormality noted. Lymph nodes: No abnormality noted. No enlarged lymph nodes. IMPRESSION: 1. Dilated gallbladder. Referred to separately dictated ultrasound report. 2. There is aortobiiliac atherosclerosis without aneurysm, dissection or arterial occlusion. ACT 112: N/A Electronically signed by Carola Davalos 03-23-2025 12:12 PM
--- NOTE | 2025-03-23 20:40 | Discharge Summary ---
Discharge Summary Date of Service March 23, 2025 Principal Dx & Hospital Course #1 = Principal Diagnosis (1) Cholecystitis without calculus: (2) Viral colitis: (3) Viral gastroenteritis: Plan In summary this is a 74-year-old female who was admitted for persistent abdominal pain that has been progressive over the past several weeks, primarily associated with eating. The patient presented with subacute onset of diffuse abdominal pain primarily associated with eating. She describes the pain as a "burning/gnawing" sensation. It is significantly worse with actively eating in the short period thereafter. She denies any fevers, chills, nausea, vomiting, hematochezia, diarrhea, constipation, melanotic stool, purulent stool, frankly bloody stool. CT abdomen pelvis in addition to a right upper quadrant ultrasound were o btained; these were with nonspecific diffuse abdominal changes specifically regarding liquefied stool throughout the entire small colon and a dilated and slightly inflamed gallbladder without well identified stones. On 03/23 the patient was very eager for discharge as her abdominal pain had improved; she was agreeable to the CT angio of the abdomen and pelvis in order to rule out vascular insufficiency as with the association with her meals, it sounded as though this might be intermittent intestinal ischemia. Her imaging was overall unremarkable. After this the patient was very eager for discharge as the pain had improved we discussed the risk versus benefits of discharge and the patient was still requesting discharge. At this time we are not actively managing anything additionally as there is no evidence of a bacterial gastrointestinal infection, therefore the patient was discharged in a stable condition Admission HPI Per Admitting Provider Patient is a 74-year-old female with chronic back pain on oxycodone and Dilaudid, upper GI bleed, GERD, depression, chronic malnutrition due to presents due to 4 weeks of worsening diffuse, burning abdominal pain and poor appetite. APCT revealed gastroenteritis and colitis with diarrheal illness as well as a distended gallbladder. Patient is being admitted for intractable abdominal pain. Patient seen at bedside with her sister present. She stated she developed back pain 4 weeks ago in which she has chronic pain and had muscle relaxer injections which did help. She then developed diffuse abdominal pain that has been slowly worsening over the past 4 weeks. She stated the pain feels like a burning/achiness however denies any acid reflux. She stated she lost almost 30 pounds however only noted 3 kg weight loss since August. She has still been able to take her home medications including oxycodone and Dilaudid for her abdominal pain. She has been trying to drink fluids but her diet is mostly consisted of chocolate milk and pudding. she stated she did feel feverish and took Tylenol. She denies any chills, lightheadedness, dizziness, chest pain, shortness of breath, vomiting, diarrhea. She does endorse occasional nausea. She takes MiraLAX every day as she is on chronic opioids and does have loose stools however unchanged and denies any hematochezia. She denies any history of abdominal surgeries, has both her gallbladder and appendix. She denies current nicotine use. She is due for her evening medications. She wishes to be DNR/DNI Discharge Exam General: Elderly female in no acute distress Vital Signs: Reviewed HEENT: Moist mucous membranes Neck: No appreciable jugular venous distention at rest Pulmonary: Symmetric chest wall excursion without restriction; clear to auscultation bilaterally Cardiovascular: Regular rate and rhythm without murmurs, rubs, or gallops; S1 and S2 normal; bilateral radial pulse 2+; trace bilateral lower extremity edema distal to mid leg Gastrointestinal: Soft, nontender; hyperactive high-pitched bowel sounds throughout the entire abdomen, without acute peritoneal findings; Neurologic: CN II-XII grossly intact; no discernible focal weakness nor paresthesias Discharge Plan Discharge Items Patient Disposition: Home - Self-Care Reason For Visit: INTRACTABLE BACK PAIN Discharge Diagnosis: Viral gastroenteritis with colitis Condition on Discharge: Fair Activity: Resume your previous activity Non-emergency contact: Primary Care Provider Call non-emergency contact if: you have any medication questions, your symptoms worsen and you have a fever Follow-up/Referrals: Lyn Handy MD [Primary Care Provider] - 03/30/25 3:00 pm (Primary Care hos pital follow up scheduled on 03/30/25 at 3:00 with Kayla MILLS) Beth Nicolas DO [Physician] - Diet: Regular Fluids: 1800ml (7 cups) Addtl Attending Provider Instructions: You were admitted to [facility] for persistent abdominal pain, subsequently found to have gastroenteritis and colitis without a focal inf ectious source. This is most likely consequential of a viral etiology, with superimposed worsening symptoms related to gastroesophageal reflux. Your symptoms improved significantly with medical interventions provided during your hospital stay. Pantoprazole will be provided at discharge, please discuss continued use with your primary care provider after discharge, as this medication is not indicated for long-term use. Thank you for choosing [facility] as your healthcare provider. Pending Studies at Discharge: Yes Studies:: Viral stool studies Stand-Alone Forms: My [facility] Medications and DC Order Prescriptions: New pantoprazole 40 mg Tablet,Delayed Release (Dr/Ec) 40 mg PO BID 21 Days Qty: 42 0RF Continued baclofen 5 mg tablet 5 mg PO TID Qty: 60 0RF latanoprost 0.005 % drops 1 drp OP QPM Qty: 7.5 1RF citalopram 40 mg tablet 40 mg PO QAM Qty: 90 1RF hydromorphone [Dilaudid] 2 mg tablet 2 mg PO PM Qty: 30 0RF oxycodone [OxyContin] 10 mg tablet,oral only,ext.rel.12 hr 10 mg PO BID Qty: 60 0RF dorzolamide-timolol 22.3-6.8 mg/mL drops 1 drp OP BID Qty: 10 1RF fluticasone propionate 50 mcg/actuation spray,suspension 1 spray intranasal DAILY PRN (Reason: Congestion) Rx Instructions: administer into each nostril polyethylene glycol 3350 [Miralax] 17 gram powder in packet 17 g PO TID PRN (Reason: Constipation) mirtazapine 15 mg tablet 15 mg PO HS Qty: 90 3RF multivitamin with folic acid [Daily-Hamilton (with folic acid)] 400 mcg Tablet 1 tab PO QAM Qty: 0 0RF atorvastatin 20 mg tablet 20 mg PO DAILY Rx Instructions: TAKE 1 TABLET BY MOUTH ONCE DAILY acetaminophen [Tylenol Extra Strength] 500 mg tablet 1,000 mg PO TID Evenity 210mg/2.34mL ( 105mg/1.17mLx2) syringe 210 mg subcut DIRECTED Rx Instructions: inject monthly for 12 monthly doses Discontinued pantoprazole 40 mg tablet,delayed release (DR/EC) 40 mg PO BID Rx Instructions: TAKE 1 TABLET BY MOUTH TWICE DAILY Discharge Orders: Discharge Order (Routine); Ordered 03/23/25 Ordered By: Yazan Soares/Other Patient Handouts: Protein MyPlate, ED Gastroenteritis, N oninfectious Admission Data Admit Date/Time: 03/22/25 22:04 Attending Provider: Yazan Holm Admit Provider: Massimo Gilbert Primary Care Provider: Lyn Handy Other Providers: Massimo Gilbert Other Interventions: Discharge Summary Assessment (RN) Last Done: 03/23/25 15:06 Hospital Stay Data Consultations 03/22/25 21:27 ED Decision to Admit Stat Diagnostic Imagining Performed 03/22/25 18:15 CT Abd and Pelvis [CT abd pelvis IV con only] Stat 03/22/25 21:50 US gallbladder Stat 03/23/25 11:27 CTA abdomen pelvis w con [CT angio abdomen pelvis w con] Urgent Pending Results Patient Have Any Pending Studies at Discharge: Yes Discharge Instructions Given to Patient (Per Discharging Provider) You were admitted to [facility] for persistent abdominal pain, subsequently found to have gastroenteritis and colitis without a focal infectious source. This is most likely consequential of a viral etiology, with superimposed worsening symptoms related to gastroesophageal reflux. Your symptoms improved significantly with medical interventions provided during your hospital stay. Pantoprazole will be provided at discharge, please discuss continued use with your primary care provider after discharge, as this medication is not indicated for long-term use. Thank you for choosing [facility] as your healthcare provider. Total Time Total Time Spent Total Time Spent (In Minutes): I personally spent 90 minutes in the coordination of the patient's discharge including chart review, physical exam and pursuing shared decision making with the patient; coordinating the patient's discharge and outpatient follow-up. Coding Level of Care Code INP/OBS EV SAME DAY LV 3,85MIN Diagnoses Cholecystitis without calculus K81.9 Viral colitis A08.4 Viral gastroenteritis A08.4
--- NOTE | 2025-03-24 10:39 | Electrocardiogram Report ---
Test Reason : Blood Pressure : */* mmHG Vent. Rate : 71 BPM Atrial Rate : 71 BPM P-R Int : 120 ms QRS Dur : 84 ms QT Int : 426 ms P-R-T Axes : 26 26 33 degrees QTcB Int : 462 ms Normal sinus rhythm Normal ECG When compared with ECG of 21-Dec-2022 14:54, Nonspecific T wave abnormality, improved in Inferior leads Confirmed by Hermes Schafer ([id number]) on 03/24/2025 10:39:17 AM Referred By: Confirmed By: Hermes Schafer
== END 2025-03-23 15:36 | disposition home or self-care (01) ==
LOC: SUATTDRO → 3N 17:53 → ED 17:53 → SUATTDRO 22:04 → 3N 23:00